=== PATIENT | female | born 1945 | race Caucasian/White ===

== ENCOUNTER 2017-04-13 17:47 | Emergency (ER) | payer MEDICARE, MEDICAID ==
[2017-04-13 18:30] VITALS: BP 134/65
--- NOTE | 2017-04-13 19:08 | RAD ---
HISTORY: Redness and pain, first MTP joint COMPARISONS: None VIEWS: 4, Frontal, lateral, and oblique views of the first digit of the right foot FINDINGS: BONE DENSITY: Normal. BONES: There is no displaced fracture. There is minimal periosteal reaction along the distal first metatarsal medially. 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 ALIGNMENT: There is no dislocation. SOFT TISSUES: Unremarkable. OTHER FINDINGS: None. IMPRESSION: THERE IS MINIMAL PERIOSTEAL REACTION ALONG THE MEDIAL ASPECT OF THE DISTAL FIRST METATARSAL. IN THE CORRECT CLINICAL SETTING THIS MAY INDICATE OSTEOMYELITIS.
--- NOTE | 2017-04-13 19:28 | UC ---
Lower Extremity/Ankle HPI - HPI Summary HPI Summary: 5 DAYS OF RIGHT GREAT TOE PAIN, REDNESS AND SWELLING. HURTS TO WALK. DENIES ANY INJURY OR TRAUMA. NO H/O GOUT. HAS DM TYPE 2 WITH PERIPHERAL NEUROPATHY BUT NO OPEN SORES OR LESIONS. NO FEVER. HAS FELT TIRED AND OVERALL UNWELL FOR PAST FEW DAYS. HAS SOME URI SX - COUGH. - History of Current Complaint Chief Complaint: UCLowerExtremity Stated Complaint: RED SWOLLEN FOOT Time Seen by Provider: 04/13/17 18:28 Hx Obtained From: Patient, Family/Counter Top Maker - GRANDDAUGHTER Onset/Duration: Gradual Onset, Lasting Days, Still Present Severity Initially: Moderate Severity Currently: Moderate Pain Intensity: 3 Pain Scale Used: 0-10 Numeric Aggravating Factor(s): Standing, Ambulation Alleviating Factor(s): Nothing Able to Bear Weight: Yes - Allergies/Home Medications Allergies/Adverse Reactions: Allergies Allergy/AdvReac Type Severity Reaction Status Date / Time Penicillins Allergy Unknown Rash Verified 04/13/17 18:30 Home Medications: Home Medications Phenylephrine-Ibuprofen [Advil Sinus Congestion & 10-200 mg] 1 tab PO PRN [History] PMH/Surg Hx/FS Hx/Imm Hx Endocrine History: Diabetes Other Cardiovascular History: MITRAL VALVE REPLACEMENT - Surgical History Surgical History: Yes Surgery Procedure, Year, and Place: HEART, APPY ', CSECT , CATARACT '10, COMPLICATIONS AND STAPH IN GRO[place] FOLLOWING HEART SURGERY - Family History Known Family History: Positive: Diabetes - Social History Alcohol Use: None Substance Use Type: None Smoking Status (MU): Never Smoked Tobacco Review of Systems Constitutional: Fatigue, Other - MALAISE Skin: Other - REDNESS RIGHT GREAT TOE Respiratory: Cough Cardiovascular: Negative Gastrointestinal: Negative Musculoskeletal: Arthralgia, Decreased ROM, Edema All Other Systems Reviewed And Are Negative: Yes Physical Exam Triage Information Reviewed: Yes Appearance: Well-Appearing, No Pain Distress, Well-Nourished Vital Signs: Initial Vital Signs Temp 99 F 04/13/17 18:22 Pulse 71 04/13/17 18:22 Resp 16 04/13/17 18:22 BP 134/65 04/13/17 18:22 Pulse Ox 94 04/13/17 18:22 Vital Signs Reviewed: Yes Eyes: Positive: Conjunctiva Clear ENT: Positive: Hearing grossly normal, Pharynx normal, TMs normal Neck: Positive: Supple, Nontender, No Lymphadenopathy Respiratory Exam: Normal Cardiovascular Exam: Normal Abdomen Description: Positive: Soft Musculoskeletal: Positive: ROM Limited @ - RIGHT GREAT TOE, Edema @ - RIGHT GREAT TOE MTP JOINT, Other: - TTP RIGHT 1ST MTP JOINT Neurological: Positive: Alert Psychological: Positive: Age Appropriate Behavior Skin: Positive: Other - RIGHT GREAT TOE REDNESS Diagnostics - Radiology RIGHT GREAT TOE XRAY Xray Interpretation: Positive (See Comments) - THERE IS MINIMAL PERIOSTEAL REACTION ALONG THE MEDIAL ASPECT OF THE DISTAL FIRST METATARSAL. IN THE CORRECT CLINICAL SETTING THIS MAY INDICATE OSTEOMYELITIS. Radiology Interpretation Completed By: Radiologist Lower Extremity Course/Dx - Differential Dx/Diagnosis Provider Diagnoses: POSSIBLE OSTEOMYELITIS - RIGHT GREAT TOE Discharge - Discharge Plan Condition: Stable Disposition: OTHER Discharge Disposition Comment: TO [facility] BY PRIVATE CAR Patient Education Materials: Osteomyelitis (ED) Referrals: Erwin James WASTE MANAGEMENT SPECIALIST [Primary Care Provider] - If Needed Additional Instructions: XRAY IS SUGGESTIVE OF OSTEOMYELITIS. GO DIRECTLY TO THE [facility] FROM HERE FOR FURTHER EVALUATION.
== END 2017-04-13 19:35 ==
LOC: UCEAST 17:47
DX: M79.674 Pain in right toe(s) (principal); E11.42 Type 2 diabetes mellitus with diabetic polyneuropathy; Z95.2 Presence of prosthetic heart valve; Z88.0 Allergy status to penicillin
CPT/HCPCS: 99212; G0463

== ENCOUNTER 2017-04-13 19:56 | Emergency (ER) | payer MEDICARE, MEDICAID ==
[2017-04-13] MEDS ORDERED: NS 0.9% 1000 ML* 1,000 ML IV ONE (20:33)
[2017-04-13 21:19] LABS: Hematocrit 41 % (35-47); Hemoglobin 13.9 g/dl (12.0-16.0); Mean Corpuscular HGB Conc 34 g/dl (31-36); Mean Corpuscular Hemoglobin 30 pg (27-31); Mean Corpuscular Volume 90 fL (80-97); Mean Platelet Volume 8 um3 (7.4-10.4); Red Blood Count 4.59 10^6/ul (4.0-5.4); Red Cell Distribution Width 13 % (10.5-15); White Blood Count 10.7 10^3/ul (3.5-10.8)
[2017-04-13 21:31] LABS: BUN/Creatinine Ratio 24.1 (8-20); C Reactive Protein 12.55 mg/L (< 5.00); Calcium 9.3 mg/dL (8.6-10.3); EGFR African American 86.4 (>60); EGFR Non-African American 67.2 (>60); Potassium 3.7 mmol/L (3.5-5.0); Total Bilirubin 0.4 mg/dL (0.2-1.0); Uric Acid 7.6 mg/dL (2.3-6.6)
[2017-04-13] MEDS ORDERED: Colchicine* 0.6 MG TAB PO ONE ×2 (22:35→22:37)
--- NOTE | 2017-04-13 22:44 | ED ---
Zeinab Headley Thomas, scribed for Reese Mora MD on 04/13/17 at 2056 . Lower Extremity - HPI Summary HPI Summary: The pt is a 72 y/o F referred from urgent care c/o right foot pain since five days ago. The pain is described as red and hot. The pain is aggravated by nothing and is alleviated by nothing. 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 Pt denies known trauma to her foot. Pt additionally c/o fatigue and dizziness. She denies fever and chills. PMHx includes a bunion on her right foot, although she denies history of Gout. She was recently diagnosed with sinusitis and given erythromycin. - History of Current Complaint Chief Complaint: EDExtremityLower Stated Complaint: [facility]FER FROM [facility] BONE INFECTION Time Seen by Provider: 04/13/17 20:25 Hx Obtained From: Patient Onset of Pain: Days - 5 days Onset/Duration: Still Present Severity Currently: Moderate Pain Intensity: 3 Pain Scale Used: 0-10 Numeric Timing: Constant Location: Is Discrete @ - right foot Associated Signs And Symptoms: Positive: Other - Right foot pain, fatigue, dizziness; NEGATIVE: fever, chills. Aggravating Factor(s): Nothing Alleviating Factor(s): Nothing - Allergies/Home Medications Allergies/Adverse Reactions: Allergies Allergy/AdvReac Type Severity Reaction Status Date / Time Penicillins Allergy Unknown Rash Verified 04/13/17 18:30 PMH/Surg Hx/FS Hx/Imm Hx Previously Healthy: No Endocrine/Hematology History: Reports: Hx Diabetes - TYPE II Denies: Hx Thyroid Disease Cardiovascular History: Denies: Hx Hypertension, Hx Pacemaker/ICD Respiratory History: Denies: Hx Asthma, Hx Chronic Obstructive Pulmonary Disease (COPD) GI History: Denies: Hx Ulcer Musculoskeletal History: Denies: Hx Gout Psychiatric History: Denies: Hx Panic Disorder - Surgical History Surgery Procedure, Year, and Place: HEART, APPY , CSECT , CATARACT , COMPLICATIONS AND STAPH IN GROIN FOLLOWING HEART SURGERY Infectious Disease History: No Infectious Disease History: Denies: Hx Hepatitis, Hx Human Immunodeficiency Virus (HIV), Traveled Outside the US in Last 30 Days - Family History Known Family History: Positive: Diabetes - Social History Alcohol Use: None Hx Substance Use: No Substance Use Type: Reports: None Hx Tobacco Use: No Smoking Status (MU): Never Smoked Tobacco Review of Systems Positive: Fatigue. Negative: Fever, Chills Positive: Other - Right foot pain Neurological: Other - Dizziness All Other Systems Reviewed And Are Negative: Yes Physical Exam - Summary Physical Exam Summary: General: well-appearing, no pain distress Skin: warm, color reflects adequate perfusion, dry Head: normal Eyes: EOMI, TAVARES ENT: normal Neck: supple, nontender Respiratory: CTA, breath sounds present Cardiovascular: RRR Abdomen: soft, nontender Bowel: present Musculoskeletal: strength/ROM intact EXTREMITY: R foot first MTP is swollen and erythematous and tender to palpation. Good capillary refill. Normal dorsalis pedis and posterior tibialis pulses. No sensation deficit. Neurological: normal, sensory/motor intact, A&O x3 Psychological: affect/mood appropriate Triage Information Reviewed: Yes Vital Signs On Initial Exam: Initial Vitals Temp Pulse Resp BP Pulse Ox 98.3 F 71 16 129/67 96 04/13/17 20:00 04/13/17 20:00 04/13/17 20:00 04/13/17 20:00 04/13/17 20:00 Vital Signs Reviewed: Yes - [place] Coma Scale Coma Scale Total: 15 Diagnostics - Vital Signs Vital Signs Temp Pulse Resp BP Pulse Ox 04/13/17 20:00 98.3 F 71 16 129/67 96 - Laboratory Lab Results: Lab Results 04/13/17 04/13/17 04/13/17 Range/Units 20:55 20:55 20:55 WBC 10.7 (3.5-10.8) 10^3/ul RBC 4.59 (4.0-5.4) 10^6/ul Hgb 13.9 (12.0-16.0) g/dl Hct 41 (35-47) % MCV 90 (80-97) fL MCH 30 (27-31) pg MCHC 34 (31-36) g/dl RDW 13 (10.5-15) % Plt Count 212 (150-450) 10^3/ul MPV 8 (7.4-10.4) um3 Neut % (Auto) 56.7 (38-83) % Lymph % (Auto) 32.1 (25-47) % Wright % (Auto) 7.8 (1-9) % Eos % (Auto) 2.0 (0-6) % Baso % (Auto) 1.4 (0-2) % Absolute Neuts (auto) 6.1 (1.5-7.7) 10^3/ul Absolute Lymphs (auto) 3.4 (1.0-4.8) 10^3/ul Absolute Monos (auto) 0.8 (0-0.8) 10^3/ul Absolute Eos (auto) 0.2 (0-0.6) 10^3/ul Absolute Basos (auto) 0.1 (0-0.2) 10^3/ul Absolute Nucleated RBC 0 10^3/ul Nucleated RBC % 0 INR (Anticoag Therapy) 0.95 (0.89-1.11) APTT 28.4 (26.0-36.3) seconds Sodium 139 (133-145) mmol/L Potassium 3.7 (3.5-5.0) mmol/L Chloride 104 (101-111) mmol/L Carbon Dioxide 28 (22-32) mmol/L Anion Gap 7 (2-11) mmol/L BUN 20 (6-24) mg/dL Creatinine 0.83 (0.51-0.95) mg/dL Est GFR ( Amer) 86.4 (>60) Est GFR (Non-Af Amer) 67.2 (>60) BUN/Creatinine Ratio 24.1 H (8-20) Glucose 160 H (70-100) mg/dL Lactic Acid (0.5-2.0) mmol/L Uric Acid 7.6 H (2.3-6.6) mg/dL Calcium 9.3 (8.6-10.3) mg/dL Total Bilirubin 0.40 (0.2-1.0) mg/dL AST 20 (13-39) U/L ALT 18 (7-52) U/L Alkaline Phosphatase 68 (34-104) U/L C-Reactive Protein 12.55 H (< 5.00) mg/L Total Protein 7.0 (6.4-8.9) g/dL Albumin 4.0 (3.2-5.2) g/dL Globulin 3.0 (2-4) g/dL Albumin/Globulin Ratio 1.3 (1-3) 04/13/17 Range/Units 20:55 WBC (3.5-10.8) 10^3/ul RBC (4.0-5.4) 10^6/ul Hgb (12.0-16.0) g/dl Hct (35-47) % MCV (80-97) fL MCH (27-31) pg MCHC (31-36) g/dl RDW (10.5-15) % Plt Count (150-450) 10^3/ul MPV (7.4-10.4) um3 Neut % (Auto) (38-83) % Lymph % (Auto) (25-47) % Wright % (Auto) (1-9) % Eos % (Auto) (0-6) % Baso % (Auto) (0-2) % Absolute Neuts (auto) (1.5-7.7) 10^3/ul Absolute Lymphs (auto) (1.0-4.8) 10^3/ul Absolute Monos (auto) (0-0.8) 10^3/ul Absolute Eos (auto) (0-0.6) 10^3/ul Absolute Basos (auto) (0-0.2) 10^3/ul Absolute Nucleated RBC 10^3/ul Nucleated RBC % INR (Anticoag Therapy) (0.89-1.11) APTT (26.0-36.3) seconds Sodium (133-145) mmol/L Potassium (3.5-5.0) mmol/L Chloride (101-111) mmol/L Carbon Dioxide (22-32) mmol/L Anion Gap (2-11) mmol/L BUN (6-24) mg/dL Creatinine (0.51-0.95) mg/dL Est GFR ( Amer) (>60) Est GFR (Non-Af Amer) (>60) BUN/Creatinine Ratio (8-20) Glucose (70-100) mg/dL Lactic Acid 1.9 (0.5-2.0) mmol/L Uric Acid (2.3-6.6) mg/dL Calcium (8.6-10.3) mg/dL Total Bilirubin (0.2-1.0) mg/dL AST (13-39) U/L ALT (7-52) U/L Alkaline Phosphatase (34-104) U/L C-Reactive Protein (< 5.00) mg/L Total Protein (6.4-8.9) g/dL Albumin (3.2-5.2) g/dL Globulin (2-4) g/dL Albumin/Globulin Ratio (1-3) Result Diagrams: 04/13/17 20:55 04/13/17 20:55 Lab Statement: Any lab studies that have been ordered have been reviewed, and results considered in the medical decision making process. Re-Evaluation - Re-Evaluation First Eval Re-Evaluation Time: 22:33 Change: Unchanged Comment: I discussed the test results with the patient. Lower Extremity Course/Dx - Course Course Of Treatment: Medications reviewed. BP noted and advised to follow up with PCP. Allergies noted. DISCUSSED RESULTS WITH PATIENT AND HER GRANDAUGHTER. WILL TREAT GOUT BUT, PATIENT NEEDS CLOSE F/U WITH PMD FOR POTENTIAL MRI AND ASPIRATION OF THE JOINT. SHE WILL RETURN IF THERE ARE ANY SIGNS OF INFECTION. NO CRITICAL CARE TIME. - Diagnoses Provider Diagnoses: Gout of right foot - Physician Notifications Discussed Care Of Patient With: Jose Davis Time Discussed With Above Provider: 20:35 Instructed by Provider To: Other - I consulted with Dr. Davis, hospitalist , who will admit the patient. Discharge - Discharge Plan Condition: Stable Disposition: HOME Prescriptions: Colchicine* [Colcrys*] 0.6 mg PO BID #10 tab Patient Education Materials: Gout (ED) Referrals: Erwin James, [employer] [facility] [Primary Care Provider] - Additional Instructions: FOLLOW UP WITH YOUR DOCTOR ON 04/15/17. TAKE THE COLCHICINE 0.6MG TWICE A DAY. YOUR FOOT REDNESS AND PAIN APPEARS TO BE GOUT AND WE ARE TREATING IT GOUT. WE HAVE NOT COMPLETELY RULED OUT INFECTION SO, IF YOU WORSEN, YOU MUST RETURN TO THE EMERGENCY DEPARTMENT RIGHT AWAY. DISCUSS HAVING AN ASPIRATION AND MRI OF THE JOINT WITH YOUR DOCTOR. RETURN TO THE EMERGENCY DEPARTMENT FOR ANY WORSENING OF YOUR CONDITION; SPREAD OF THE REDNESS, FEVER, SIGNS OF INFECTION, YOU FEEL ILL OR QUESTIONS OR CONCERNS. The documentation as recorded by the Zeinab rutledge Thomas accurately reflects the service I personally performed and the decisions made by me, Reese Mora MD.
[2017-04-13 23:20] VITALS: BP 104/64
== END 2017-04-13 23:18 | disposition home or self-care (01) ==
LOC: ED 19:56
DX: M10.9 Gout, unspecified (principal); E11.9 Type 2 diabetes mellitus without complications; Z88.0 Allergy status to penicillin
CPT/HCPCS: 36415; 80053; 83605; 84550; 85025; 85610; 85730; 86140; 87040; 96360; 99283

== ENCOUNTER 2018-05-05 12:16 | Inpatient (IN) | payer MEDICARE, MEDICAID ==
[2018-05-05] MEDS ORDERED: Ondansetron INJ* 2 MG/ML VIAL IV ONE (12:28)
[2018-05-05] MEDS ORDERED: Morphine VIAL* 4 MG/ML VIAL (1 ml vial) IV ONE ×2 (12:30→14:54)
--- NOTE | 2018-05-05 12:36 | ED ---
Adult Trauma - HPI Summary HPI Summary: This pt is a 73 y/o female presenting to [facility] c/o right hip pain, left wrist pain, low back pain s/p a mechanical fall today. Pt reports she was on a step ladder cleaning when she fell backwards. Pt presents with left wrist deformity, right hip pain and low back pain. She denies headache, chest pain, SOB, nausea, vomiting, head strike,urinary or fecal dysfunction and LOC. PMHx includes diabetes, mitral valve replacement. Home Medications Medication Instructions Recorded Confirmed Type Ascorbic Acid/Vitamin E/Biotin 1 chw PO DAILY 05/05/18 05/05/18 History [Hair/Skin/Nails 1250-7.5-7.5 Mcg-mg-Unt] Cetirizine* [ZyrTEC 10 MG TAB*] 10 mg PO DAILY PRN 05/05/18 05/05/18 History Colchicine* [Colcrys*] 0.6 mg PO BID 05/05/18 05/05/18 History Mometasone NASAL (NF) [Nasonex 2 spray BOTH NARES DAILY 05/05/18 05/05/18 History (NF)] Multivit with Calcium,Iron,Min 1 tab PO DAILY 05/05/18 05/05/18 History [Multiple Vitamins For Women] glipiZIDE TAB.XL* [Glucotrol XL*] 5 mg PO BID 05/05/18 05/05/18 History - History of Current Complaint Stated Complaint: FALL LEFT WRIST INJURY , BACK PAIN Time Seen by Provider: 05/05/18 12:23 Hx Obtained From: Patient, Family/Film Inspector Mechanism of Injury: Fall Ambulatory at the Scene: No Loss of Consciousness: no loss of consciousness Onset/Duration: Started Minutes Ago Onset of Pain: Minutes Current Severity: Severe Pain Intensity: 10 Pain Scale Used: 0-10 Numeric Location: Extremities - left wrist, Other - POS: right hip, lower back Character: Aching Aggravating Factor(s): Movement Alleviating Factor(s): Rest Associated Signs & Symptoms: Negative: SOB, Chest Pain, Nausea/Vomiting, Loss of Consciousness - Allergy/Home Medications Allergies/Adverse Reactions: Allergies Allergy/AdvReac Type Severity Reaction Status Date / Time doxycycline Allergy Nausea Verified 05/05/18 16:10 Penicillins Allergy Rash Verified 05/05/18 16:10 Home Medications: Home Medications Ascorbic Acid/Vitamin E/Biotin [Hair/Skin/Nails 1250-7.5-7.5 Mcg-mg-Unt] 1 chw PO DAILY 05/05/18 [History Confirmed 05/05/18] Cetirizine* [ZyrTEC 10 MG TAB*] 10 mg PO DAILY PRN 05/05/18 [History Confirmed 05/05/18] Colchicine* [Colcrys*] 0.6 mg PO BID 05/05/18 [History Confirmed 05/05/18] Mometasone NASAL (NF) [Nasonex (NF)] 2 spray BOTH NARES DAILY 05/05/18 [History Confirmed 05/05/18] Multivit with Calcium,Iron,Min [Multiple Vitamins For Women] 1 tab PO DAILY [History Confirmed 05/05/18] glipiZIDE TAB.XL* [Glucotrol XL*] 5 mg PO BID 05/05/18 [History Confirmed ] PMH/Surg Hx/FS Hx/Imm Hx Endocrine/Hematology History: Reports: Hx Diabetes - TYPE II Denies: Hx Thyroid Disease Cardiovascular History: Reports: Other Cardiovascular Problems/Disorders - mitral valve replacement Denies: Hx Hypertension, Hx Pacemaker/ICD Respiratory History: Denies: Hx Asthma, Hx Chronic Obstructive Pulmonary Disease (COPD) GI History: Denies: Hx Ulcer Musculoskeletal History: Denies: Hx Gout Sensory History: Denies: Hx Hearing Aid Psychiatric History: Denies: Hx Panic Disorder - Surgical History Surgery Procedure, Year, and Place: APPY '53, CSECT '69, CATARACT '10, COMPLICATIONS AND STAPH IN GRO[place] FOLLOWING HEART SURGERY-*. HEART VALVE REPLACEMENT 2009-[employer] [facility] HEART VALVE MODEL 547C97-TE FOR UP TO 3T-PT WILL BRING CARD TO COPY Infectious Disease History: Denies: Hx Hepatitis, Hx Human Immunodeficiency Virus (HIV), Traveled Outside the US in Last 30 Days - Family History Known Family History: Positive: Diabetes - Social History Alcohol Use: None Hx Substance Use: No Substance Use Type: Reports: None Hx Tobacco Use: No Smoking Status (MU): Never Smoked Tobacco Review of Systems Negative: Fever, Chills Negative: Chest Pain Negative: Shortness Of Breath Negative: Vomiting, Nausea Negative: incontinence Musculoskeletal: Other - POS: left wrist pain, lower back pain, right hip pain Negative: Headache All Other Systems Reviewed And Are Negative: Yes Physical Exam - Summary Physical Exam Summary: VITAL SIGNS: Reviewed. GENERAL: Patient is a well-developed and nourished female. Patient is not in any acute respiratory distress. HEAD AND FACE: No signs of trauma. No ecchymosis, hematomas or skull depressions. No sinus tenderness. EYES: PERRLA, EOMI x 2, No injected conjunctiva, no nystagmus. EARS: Hearing grossly intact. Ear canals and tympanic membranes are within normal limits. MOUTH: Oropharynx within normal limits. NECK: Supple, trachea is midline, no adenopathy, no JVD, no carotid bruit, no c- spine tenderness, neck with full ROM. CHEST: Symmetric, no tenderness at palpation LUNGS: Clear to auscultation bilaterally. No wheezing or crackles. CVS: Regular rate and rhythm, S1 and S2 present, no murmurs or gallops appreciated. ABDOMEN: Soft, non-tender. No signs of distention. No rebound, no guarding, and no masses palpated. Bowel sounds are normal. EXTREMITIES: Left wrist with positive deformity. Neurovascular intact. Lower back tenderness. No urinary or bowel dysfunction. Right hip tenderness with decreased ROM. NEURO: Alert and oriented x 3. No acute neurological deficits. Speech is normal and follows commands. SKIN: Dry and warm Triage Information Reviewed: Yes Vital Signs On Initial Exam: Initial Vital Signs Resp 25 05/05/18 12:29 Vital Signs Reviewed: Yes Diagnostics - Laboratory Result Diagrams: 05/05/18 12:56 05/05/18 12:56 Lab Statement: Any lab studies that have been ordered have been reviewed, and results considered in the medical decision making process. - Radiology Chest XR Radiology Interpretation Completed By: Radiologist Summary of Radiographic Findings: IMPRESSION: Hyperinflated lung ledezma without definite pneumonia. Dr. Jeffries has reviewed this report. Hip/Pelvis XR Radiology Interpretation Completed By: Radiologist Summary of Radiographic Findings: IMPRESSION: Likely impacted fracture neck of the right femur. Dr. Jeffries has reviewed this report. Left wrist XR Radiology Interpretation Completed By: Radiologist Summary of Radiographic Findings: IMPRESSION: Comminuted fracture distal radius with dorsal angulation and overriding of the fracture fragments as well as fracture of the ulnar styloid process. Dr. Jeffries has reviewed this report. Lumbar spine XR Radiology Interpretation Completed By: Radiologist Summary of Radiographic Findings: IMPRESSION: Degenerative disc disease and osteoarthritis. Dr. Jeffries has reviewed this report. - EKG 12:34 Cardiac Rate: Tachycardia - at 108 bpm EKG Rhythm: Sinus Tachycardia Summary of EKG Findings: Right bundle branch block. Adult Trauma Course/Dx - Course Assessment/Plan: This pt is a 73 y/o female presenting to [facility] c/o right hip pain, left wrist pain, low back pain s/p a fall today. Pt reports she was on a step ladder cleaning when she fell backwards.Pt notes lower back pain but denies LOC, head strike ,urinary or fecal dysfunction, headache, chest pain, SOB , nausea, and vomiting. PMHx includes diabetes. Lumbar spine impression: Degenerative disc disease and osteoarthritis. Right hip x-ray impression: Likely impacted fracture of the neck of the right femur. Chest x-ray impression : Hyperinflated lung ledezma without definite pneumonia. Wrist x ray Impression : Comminuted fracture of the distal radius with dorsal angulation and overriding of the fracture fragments as well as fracture of the ulna distally process. Blood work without any significant abnormality except for glucose of 210. Urinalysis is negative for UTI. In the ED course the patient was given IV fluids, Zofran for nausea and vomiting and morphine for pain. At this point I discussed the case with Dr. Bose, orthopedist, who agreed to do a consult for this patient. I discussed the physical exam, findings and test results with Dr. Jackson from the hospitalist services and he agrees to admit patient to his services. Patient is hemodynamically stable, alert and oriented x 3. - Diagnoses Differential Diagnosis/HQI/PQRI: Positive: Abrasion(s), Contusion(s), Fracture, Dislocation, Hematoma(s), Laceration(s), Sprain, Strain Provider Diagnoses: Hip fracture, Wrist fracture - Physician Notifications Discussed Care Of Patient With: Vitaliy Jackson - hospitalist Time Discussed With Above Provider: 14:42 Instructed by Provider To: Other - I discussed the case with Dr. Jackson, hospitalist, who accepted the pt for admission. [15:12] I discussed with Dr. Bose, orthopedist, who wants a hip CT and he will see her in the ED. Discharge - Sign-Out/Discharge Documenting (check all that apply): Patient Departure - Admit to [facility] - Discharge Plan Condition: Stable Disposition: ADMITTED TO [facility] - Billing Disposition and Condition Condition: STABLE Disposition: Admitted to [facility] - Attestation Statements Document Initiated by Jeremías: Yes Documenting Scribe: Bridgett Cabrera Provider For Whom Jeremías is Documenting (Include Credential): Zain Jeffries MD Scribe Attestation: Bridgett Headley, scribed for Zain Jeffries MD on 05/05/18 at 1831. Scribe Documentation Reviewed: Yes Provider Attestation: The documentation as recorded by the Bridgett rutledge accurately reflects the service I personally performed and the decisions made by me, Zain Jeffries MD
[2018-05-05 13:14] LABS: ABS Basophils 0 10^3/ul (0-0.2); ABS Eosinophils 0.1 10^3/ul (0-0.6); ABS Lymphocytes 1.7 10^3/ul (1.0-4.8); ABS Monocytes 0.6 10^3/ul (0-0.8); ABS Neutrophils 7.7 10^3/ul (1.5-7.7); ABS Nucleated RBC 0 10^3/ul; Eosinophil % 0.9 % (0-6); Hematocrit 41 % (35-47); Lymphocyte % 16.6 % (25-47); Mean Corpuscular HGB Conc 34 g/dl (31-36); Mean Corpuscular Hemoglobin 31 pg (27-31); Mean Corpuscular Volume 91 fL (80-97); Mean Platelet Volume 7.5 fL (7.4-10.4); Nucleated Red Blood Cells % 0; Platelet Count 169 10^3/ul (150-450); Red Blood Count 4.56 10^6/ul (4.00-5.40); Red Cell Distribution Width 13 % (10.5-15); White Blood Count 10.1 10^3/ul (3.5-10.8)
[2018-05-05 13:34] LABS: Urine Appearance Clear; Urine Blood Negative (Negative); Urine Color Yellow; Urine Ketones Trace (Negative); Urine Protein Negative (Negative); Urine Red Blood Cell Absent (Absent); Urine Specific Gravity 1.019 (1.010-1.030); Urine Urobilinogen Negative (Negative); Urine White Blood Cell Trace(0-5/hpf) (Absent)
[2018-05-05 13:44] LABS: EGFR Non-African American 88.9 (>60)
--- NOTE | 2018-05-05 15:02 | PN ---
Progress Note - Progress Note Date of Service: 05/05/18 Note: Neurovascularly intact Obvious wrist deformity Volar wrist splint placed Patient c/o 03/26 pain with movement No manipulation/reduction attempted NV intact s/p volar splint
[2018-05-05] MEDS ORDERED: Acetaminophen TAB* 325 MG PO PRN (15:37)
[2018-05-05] MEDS ORDERED: Ondansetron INJ* 2 MG/ML VIAL IV PRN (15:37)
[2018-05-05] MEDS ORDERED: NS 0.9% 1000 ML* 1,000 ML IV SCH (15:45)
[2018-05-05] MEDS ORDERED: Dextrose 50% Syringe 50 ML* 25 GM/50 ML SYRINGE IV PUSH PRN (15:45)
[2018-05-05] MEDS ORDERED: Iodixanol* (CONTRAST) 320 MG/ML 100 ML SDV IV ONE (16:00)
[2018-05-05] MEDS: Insulin LISPRO* 1 UNITS UNIT SUBCUT SCH (18:34)
[2018-05-05 19:13] LABS: INR 0.95 (0.77-1.02)
--- NOTE | 2018-05-05 19:14 | HP ---
CC: Erwin James NP; Dr. Maxwell; Dr. Bose * HISTORY AND PHYSICAL: DATE OF ADMISSION: 05/05/18 PRIMARY CARE PROVIDER: Erwin James NP ATTENDING PHYSICIAN WHILE IN THE HOSPITAL: Dr. Vitaliy Jackson *(report dictated by Sd Salazar NP). CONSULTING GAS LINE REPAIRER: Dr. Maxwell. CONSULTING ORTHOPEDIST: Dr. Bose. CHIEF COMPLAINT: Fall. HISTORY OF PRESENT ILLNESS: Ms. 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 She broke most of the fall with extending out her right arm. She says she did not hit her head, she did not faint, she had no chest pain prior to or after, she did not feel lightheaded or dizzy, but she put her arm out and fell and landed on it. She immediately had pain. She called out and the 911 was summoned. She says that she has not had any recent fevers or chills. No chest pain, no shortness of breath. She says typically she does clean and she can go up 3 flights of stairs several times a day and she does not get chest pain. She says it takes her time to do it. She does get sometimes short of breath with this, but she said she is able to do it. She has not had any recent chest pain. She has not had any recent change in medications. No fevers. She denied syncope. There was no loss of consciousness. There was concern though because of the fall the fact that she broke if there was a fractured arm and she was also complaining of hip pain, so x-ray imaging of the hip and pelvis did reveal a possible fracture. Because of these findings, we were asked to evaluate for admission. PAST MEDICAL HISTORY: Significant for: 1. Diabetes. 2. Valvular heart disease. 3. Gout. PAST SURGICAL HISTORY: 1. She has had an appendectomy. 2. 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 3. She has had cataract extraction. 4. . 5. She has had a right groin infection after the mitral valve replacement, which required I and D. HOME MEDICATIONS: Include: 1. Ascorbic acid/vitamin E/Biotin 1 tablet p.o. daily. 2. Multivitamin 1 tablet daily. 3. Glipizide 5 mg p.o. b.i.d. 4. Nasonex 2 sprays both nares daily. 5. Colchicine 0.6 mg p.o. b.i.d. 6. Cetirizine 10 mg p.o. daily as needed. ALLERGIES TO MEDICATIONS: Include PENICILLIN and DOXYCYCLINE. FAMILY HISTORY: Her mother had scleroderma. Father had a history of cancer. SOCIAL HISTORY: She does not smoke. She does not drink. She lives alone. Surrogate decision maker is her daughter. REVIEW OF SYSTEMS: There is no documented fever. She denied having any significant weight change. There is no double vision. She denies having any ear discharge. There is no rhinorrhea. There was no sore throat. No thyroid enlargement. She denied having any chest pain. There was no orthopnea. There was no nocturnal dyspnea. There was no abdominal pain. There was no nausea. There was no vomiting. There was no dysuria, no frequency. There was no seizure. There was no loss of consciousness. Review of 14 systems was completed, all others negative. PHYSICAL EXAMINATION GENERAL: At this time, Ms. Garcia is a 73-year-old female patient. She is sitting in the ED stretcher. She does not appear to be in any acute distress. She appears to be well nourished and well developed. VITAL SIGNS: Blood pressure 178/84 with a pulse of 108; respirations were 20; her O2 saturations were 99% on room air when she came in, but when I was examining her they were dipping down to 88% and her heart rate was in the one teens; her temperature was 98.4. HEENT: Head: Atraumatic and normocephalic. Eyes: EOMs are intact. Her sclerae were anicteric and not pale. Her throat, oral mucosa appears to be dry. No oropharyngeal erythema. NECK: Supple. LUNGS: Clear to auscultation. There were no wheezes, rales, or rhonchi. HEART: Sounds S1, S2. She is tachycardic. There were no murmurs, rubs, or gallops. ABDOMEN: Soft. It was flat. It was nontender. Bowel sounds were present. EXTREMITIES: Pulses were 2+ throughout. Distal CSM checks are intact of the right upper extremity. She has limited range of motion of the left lower extremity due to pain, but distal CSM checks are intact. SKIN: Grossly intact. DIAGNOSTIC STUDIES/LAB DATA: Labs today are revealing a WBC of 10.1, RBC of 4.56, hemoglobin of 14.0, hematocrit of 41, and platelet count of 169. Her sodium was 140, potassium 4, chloride 106, bicarb 26, BUN 19, creatinine of 0.65 , glucose 210, calcium 9.4. Total bili 0.4, AST 27, ALT 25, alk phos 91. Her albumin was 3.9. Urine showed trace ketones, 1+ leukocyte esterase, present squamous epithelial cells. She had multiple imaging here in the ED starting out with chest x-ray, which revealed hyperinflated lung ledezma without definite pneumonia. There was an EKG obtained today and the last EKG I have access to, was from 7 years ago. Today's EKG shows a right bundle branch block, rate of 108. No ST elevations were noted. When you review it to the previous EKG, she had a normal sinus rhythm with a rate of 97 and again no right bundle branch block. She had a hip and pelvis x-ray obtained today, which revealed likely impacted femoral neck fracture. Wrist x-ray shows comminuted fracture of the distal radius with dorsal angulation overriding the fracture fragments as well as fracture of the ulnar styloid process. She had a lumbar spine x-ray, which revealed degenerative disk disease and osteoarthritis. She had an echo done in 2008. EF greater than 82%. Again, that was 9 years ago. Old medical records were reviewed. ASSESSMENT AND PLAN: Ms. Garcia is a 73-year-old female patient coming into the ED today with complaints of a fall. She denies having any syncopal episode , denied having any chest pain. She stated even though it sounds like this was a mechanical fall; however, it was found that she did have a wrist fracture, possible left hip fracture. We were asked to evaluate her for admission. She will be admitted under inpatient status for: 1. Left wrist fracture. At this point, Dr. Bose did evaluate the patient. She will need to be taken to the OR when she is medically optimized. At this point, I do note that her EKG does show a new right bundle branch block, so I have ordered an echo. I did touch base with my attending, Dr. Jackson and we are going to go ahead and cycle her troponins and check a CTA of the chest given the fact that she did have some hypoxia and she did have some tachycardia. I do not know if this is new or not. She may have had this for some time given the last time she had an EKG that I have access to was 7 years ago, but I would like to rule out other etiologies prior to optimization and we will get Cardiology input as well. Dr. Bose is following at this time being. We will get neurovascular checks. In addition to this, the wrist has been splinted. 2. Possible left hip fracture. Dr. Bose evaluated the x-ray films. He is recommending a CT pelvis, which he has ordered. We will follow up on that and because of the fall, I also will get a CT brain and CT cervical spine. 3. Diabetes. We will put her on a lispro sliding scale. 4. Valvular heart disease. She has a history of mitral valve replacement. We will evaluate this with echo and get Cardiology to evaluate. 5. Gout. Continue her colchicine. 6. DVT prophylaxis: She will be placed on heparin subcu. 7. Code status: She is full code. 8. Fluids, electrolytes, and nutrition: She can have a consistent carb diet. TIME SPENT: Time spent on the admission was 60 minutes, greater than half of the time was spent [id number] with the patient obtaining my history and physical, other half of the time was spent going over the plan of care with the patient and implementing plan of care. I did discuss the plan of care with my attending, Dr. Jackson; he is in agreement. SD SALAZAR, COTY [id number]/[facility] #: [id number] HARVEY
--- NOTE | 2018-05-05 20:21 | CONS ---
CC: [facility]; Dr. Cortes Bose * CARDIOLOGY CONSULTATION: DATE OF CONSULT: 05/05/18 INDICATION FOR CONSULTATION: Mitral valve replacement, right bundle branch block, pre-op for wrist surgery. HISTORY OF PRESENT ILLNESS: The patient is a 73-year-old female with a history of a mitral valve replacement in 2008 who had a fall today resulted in a left arm fracture. 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 She denied any syncopal episode. She denied any lightheadedness or dizziness. She denied any chest pain. She denied any palpitations. On arrival to the emergency room an EKG demonstrated a normal sinus rhythm with a right bundle-branch block when compared to a previous EKG in 2011 the right bundle-branch block is new. Again in speaking with the patient, I cannot elicit any significant cardiac symptoms. She denies any chest pain, shortness of breath, no orthopnea or PND. No palpitations. No lightheadedness, dizziness or syncope. OUTPATIENT MEDICATIONS: 1. Glipizide tablet 5 mg twice a day. 2. Nasonex nasal spray daily. 3. Colchicine 0.6 mg b.i.d. 4. Zyrtec 10 mg a day. 5. Vitamin C. 6. Multivitamin a day. ALLERGIES: DOXYCYCLINE and PENICILLIN. FAMILY HISTORY: Family history was not obtained. SOCIAL HISTORY: She lives alone. 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 She denies tobacco or alcohol use. She is not getting any regular exercise, but is very active. REVIEW OF SYSTEMS: Negative for fevers and chills. Negative for changes in bowel or bladder habits. Negative for change in weight. Other 12 point review was unremarkable. PHYSICAL EXAM: Height is 5 feet 3 inches, weight is 130 pounds. Temperature 98.4, heart rate is 100, blood pressure 143/78, respiratory rate is 20, oxygen saturation 97% on 2 L. Sclerae anicteric. Oropharynx is pink without erythema. Carotids are 2+ without bruits. JVD is normal. Thyroid is normal. Cardiac Exam: S1, S2 without any murmurs, rubs, or gallops. Lungs are clear to auscultation bilateral. There is no dullness to percussion. Abdomen is soft , nontender, nondistended with normoactive bowel sounds. Extremities showed no edema. She has 2+ pulses throughout. The patient is awake and alert, and oriented. She moves all 4 extremities equally. The patient had a cardiac catheterization in 2008 before her valve replacement surgery. This showed no evidence of coronary artery disease. Her last echocardiogram was in 2011. This demonstrated normal LV size and systolic function, normal function of her bioprosthetic valve. No other valvular issues. In the emergency room, the patient had multiple x-rays; she had a CT of the chest, which demonstrated no evidence of pulmonary embolism. IMPRESSION: This is a 73-year-old female with a history of mitral valve replacement in 2008, who comes in today after a mechanical fall resulted in a wrist fracture. The patient is essentially going to the loom operator room tomorrow for her wrist fracture. In speaking with the patient, I cannot elicit any cardiac symptoms. Her EKG does show a new onset right bundle-branch block, which is of no concern. The patient will undergo an echocardiogram tomorrow morning to evaluate her mitral valve. If her echocardiogram is unchanged from 2012, the patient should be able to proceed with surgery. The patient is at low risk for cardiovascular complications. Further recommendations pending results of her echocardiogram. [id number]/[facility] #: [id number] HARVEY
[2018-05-05] MEDS: oxyCODONE/Acetamin 5/325 MG* TAB PO PRN (21:48)
[2018-05-05] MEDS: Colchicine* 0.6 MG TAB PO SCH (21:48)
[2018-05-05] MEDS: Heparin VIAL(*) 5000 UNITS/ML VIAL (FIVE THOUSAND) SUBCUT SCH (21:51)
[2018-05-06] MEDS: Morphine VIAL* 4 MG/ML VIAL (1 ml vial) IV PRN ×2 (03:31→07:45)
[2018-05-06] MEDS: Heparin VIAL(*) 5000 UNITS/ML VIAL (FIVE THOUSAND) SUBCUT SCH ×3 (05:35→21:20)
[2018-05-06 05:53] LABS: ABS Basophils 0 10^3/ul (0-0.2); ABS Eosinophils 0.1 10^3/ul (0-0.6); ABS Lymphocytes 1.9 10^3/ul (1.0-4.8); ABS Monocytes 0.8 10^3/ul (0-0.8); ABS Neutrophils 7.8 10^3/ul (1.5-7.7); ABS Nucleated RBC 0 10^3/ul; Eosinophil % 1.3 % (0-6); Hematocrit 37 % (35-47); Hemoglobin 12.9 g/dl (12.0-16.0); Lymphocyte % 17.8 % (25-47); Mean Corpuscular HGB Conc 35 g/dl (31-36); Mean Corpuscular Hemoglobin 31 pg (27-31); Mean Corpuscular Volume 90 fL (80-97); Mean Platelet Volume 7.3 fL (7.4-10.4); Nucleated Red Blood Cells % 0; Platelet Count 167 10^3/ul (150-450); Red Blood Count 4.13 10^6/ul (4.00-5.40); Red Cell Distribution Width 13 % (10.5-15); White Blood Count 10.7 10^3/ul (3.5-10.8)
[2018-05-06 05:55] LABS: INR 1.02 (0.77-1.02)
[2018-05-06 06:05] LABS: EGFR Non-African American 97.5 (>60)
[2018-05-06] MEDS: Colchicine* 0.6 MG TAB PO SCH ×2 (08:54→21:24)
[2018-05-06] MEDS: Insulin LISPRO* 1 UNITS UNIT SUBCUT SCH ×3 (08:57→18:04)
[2018-05-06] MEDS: Fluticasone NASAL SPRAY 50MCG* 16 gm SPRAY BTL BOTH NARES SCH (08:59)
--- NOTE | 2018-05-06 09:32 | ECHO ---
Patient: [facility] Rec#: [id number] : 1945 Date: 05/06/2018 Age: 73y Height: 160 cm / 63.0 in Weight: 59 kg / 130.0 lbs Sex: F BSA: 1.61 Room#: [facility] Admit Date#: 05/05/2018 Type: Inpatient Referring: Sd Salazar NP Reading: Robson Maxwell MD Tower Truck Driver: Casandra Lynn RDCS CC: Erwin James NP Transthoracic Echocardiogram Indication: Abnormal EKG BP: 121/62 HR: 89 Rhythm: NSR Findings History: DM, s/p mitral valve replacement (porcine) 2008. Technical Comments: The study quality is fair. The study was technically limited due to the patient's inability to lay in the left lateral decubitus position. Completed at 0835. Left Ventricle: The left ventricular chamber size is normal. Mild concentric left ventricular hypertrophy is observed. Left ventricular systolic function is at the lower limits of normal. The estimated ejection fraction is 50-55%. Post surgical hypokinesis of the interventricular septum is observed consistent with valve replacement. There is a left ventricular septal wall motion abnormality observed, possibly due to the presence of a right bundle branch block. There is no consistent Doppler evidence of clinically significant diastolic dysfunction. Left Atrium: The left atrium is mild to moderately dilated. Right Ventricle: Moderator Band present. The right ventricular cavity size is normal. The right ventricular global systolic function is low normal. Right Atrium: The right atrium is mildly dilated. Aortic Valve: The aortic valve is trileaflet. The aortic valve leaflets are mildly thickened. There is no evidence of aortic regurgitation. There is no evidence of aortic stenosis. Mitral Valve: A porcine bioprosthetic mitral valve is present. The bioprosthetic mitral valve appears to be functioning normally. Tricuspid Valve: The tricuspid valve leaflets are normal. There is mild to moderate tricuspid regurgitation. The right ventricular systolic pressure is estimated at 37 mmHg. There is evidence of mild pulmonary hypertension. There is no tricuspid stenosis. Pulmonic Valve: The pulmonic valve appears normal. There is no evidence of pulmonic regurgitation. There is no pulmonic stenosis. Pericardium: There is no significant pericardial effusion. Aorta: There is no dilatation of the ascending aorta. There is no dilatation of the aortic arch. The aortic root is normal in size. Pulmonary Artery: The main pulmonary artery appears normal. Venous: The inferior vena cava appears normal in size. There is a greater than 50% respiratory change in the inferior vena cava dimension. Summary: There are no significant changes when compared to the previous study done on 03/20/12 Conclusions Mild concentric left ventricular hypertrophy is observed. The estimated ejection fraction is 50-55%. Post surgical hypokinesis of the interventricular septum is observed consistent with valve replacement. The right ventricular global systolic function is low normal. There is no evidence of aortic stenosis. The bioprosthetic mitral valve appears to be functioning normally. There is mild to moderate tricuspid regurgitation. The right ventricular systolic pressure is estimated at 37 mmHg. There is evidence of mild pulmonary hypertension. There is no significant pericardial effusion. There are no significant changes when compared to the previous study done on 03/20/12 Measurements Name Value Normal Range RVIDd (AP) 2D 2.7 cm (0.9 - 2.6) RVDdMajor (2D) 4.3 cm (2.2 - 4.4) RAd ISD 4CH 5.2 cm (3.4 - 4.9) RA (A4C)W 4.6 cm (2.9 - 4.6) IVSd (2D) 1.1 cm (0.6 - 1) LVPWd (2D) 1.1 cm (0.6 - 1) LVIDd (2D) 4 cm (3.6 - 5.4) LVIDs (2D) 2.8 cm - Aortic Annulus 1.9 cm (1.4 - 2.6) Ao root diameter (2D) 3.1 cm (2.1 - 3.5) Ascending Ao 3 cm (2.1 - 3.4) Aortic arch 2.2 cm (1.8 - 3.4) LA dimension (AP) 2D 3.4 cm (2.3 - 3.8) LAd ISD 4CH 5.8 cm (2.9 - 5.3) LA ISD 4CH W 4.7 cm (2.5 - 4.5) Name Value Normal Range LA ESV BP (A/L) index 41 ml/m2 - Name Value Normal Range MV E-wave Vmax 1.7 m/sec - MV deceleration time 292 msec - MV A-wave Vmax 1.3 m/sec - MV E:A ratio 1.3 ratio - LV septal e' Vmax 0.05 m/sec - LV lateral e' Vmax 0.05 m/sec - LV E:e' septal ratio 34 ratio - LV E:e' lateral ratio 34 ratio - Name Value Normal Range AV Vmax 1.6 m/sec - AV VTI 27.87 cm - AV peak gradient 10 mmHg - AV mean gradient 5 mmHg - LVOT diameter 2 cm - LVOT Vmax 1.1 m/sec - LVOT VTI 21.7 cm - LVOT peak gradient 5 mmHg - LVOT mean gradient 3 mmHg - RAMBO Vmax 0.7 m/sec - Name Value Normal Range MV Vmax 1.9 m/sec - MV VTI 36.2 cm - MV peak gradient 13 mmHg - MV mean gradient 6 mmHg - MV PHT 61 msec - MVA (PHT) 3.6 cm2 - MVA (continuity VTI) 1.9 cm2 - Name Value Normal Range TR Vmax 2.9 m/sec - TR peak gradient 34 mmHg - RAP 3 mmHg - RVSP 37 mmHg - IVC diameter 1.5 cm - Name Value Normal Range PV Vmax 1 m/sec - PV peak gradient 4 mmHg -
--- NOTE | 2018-05-06 10:04 | CONSULT ---
Consult Consult: Orthopedic Consultation Patient: LANE GARCIA /Age: 08 1945 73 Medical Record#: [id number] Admission Date: 05/05/18 PRIMARY CARE PROVIDER: Erwin James NP CONSULTING PIECE MEAT TRIMMER: Dr. Maxwell CONSULTING ORTHOPEDIST: Dr. 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 She was standing on a chair to dust a [employer] cabinet when she fell to the ground, catching herself with her left arm. Fall was not associated with dizziness, SOB, CP, loss of conciousness. She did not hit her hear or lose conciousness with the fall. After fall she had immediate left wrist and right hip pain and called for help, 911 was called and she was brought to [facility] ED. Today she complains of left wrist pain with movement, no numbness or tingling. She is otherwise without complaints. 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 She has tolerated anesthesia well in the past, has a history of mitral valve replacement. Community ambulator at baseline without assistive device. No history of stroke or bloodclot. PAST MEDICAL HISTORY: 1. Diabetes. 2. Valvular heart disease (mitral) 3. Gout. PAST SURGICAL HISTORY: 1. appendectomy. 2. Mitral valve replacement, porcine. 3. She has had cataract extraction. 4. . 5. She has had a right groin infection after the mitral valve replacement, which required I and D. ALLERGIES TO MEDICATIONS: Include PENICILLIN and DOXYCYCLINE. FAMILY HISTORY: Her mother had scleroderma. Father had a history of cancer. SOCIAL HISTORY: She does not smoke. She does not drink. She lives alone. Surrogate decision maker is her daughter. Diagnostic Studies: Left Wrist Xray: Indication: Left wrist injury after fall 3 views of the wrist demonstrates comminuted fracture of the distal radius with dorsal angulation and fracture of the ulnar styloid process. IMPRESSION: Comminuted fracture distal radius with dorsal angulation and overriding of the fracture fragments as well as fracture of the ulnar styloid process. C/T Pelvis Without FINDINGS: BONE DENSITY: There is diffuse osteopenia. BONES: There is no displaced fracture. JOINTS: There is advanced osteoarthritis of the right hip with moderate osteoarthritis of the left hip. 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 MUSCULATURE: Unremarkable ALIGNMENT: There is no dislocation. SOFT TISSUES: Unremarkable. OTHER FINDINGS: None. IMPRESSION: 1. OSTEOPENIA. 2. OSTEOARTHRITIS. 3. NO ACUTE OSSEOUS INJURY. IF SYMPTOMS PERSIST, RECOMMEND REPEAT IMAGING. Review of Systems: General: Negative for Fever, Chills, recent illness HEENT: Negative for change in vision, headache, head trauma Cardio: No irregular heartbeats or Chest Pain Resp: No Shortness of Breath or Cough. Abd: no Abdominal Pain, Vomiting, Diarrhea, Nausea : no dysuria MSK: left wrist pain. No complaint of other joint or extremity pain today Neuro: Sensation intact throughout all extremities without numbness or parasthesias Heme: no history of blood clot Skin: no lacerations or rashes Physical Exam General: Well appearing, NAD HEENT: NCAT. EOMi, moist mucus membranes Cardio: S1S2 RRR Resp: CTA BL. no wheezes,rales or rhonchi ABD: bowel sounds normoactive in all 4 quadrants. Nontender to palpation, no guarding or rigidity. LUE: Skin envelope intact, volar splint in place. Active flexion and extension at elbow without associated pain. Shoulder with nonpainful active forward flexion and abduction. Sensation intact to light touch and capillary refill less than 2 seconds of all 5 digits. Intact flexion and extension of all 5 digits, painful and limited. RUE: Skin envelope intact, no obvious deformity, nontender to palpation. Active flexion and extension of digits, wrists, elbows without associated pain. Shoulders with nonpainful active forward flexion and abduction. B/L LE: Skin envelope intact, no obvious deformity, nontender to palpation. Active nonpainful flexion and extension of digits, ankle, knee and hip. Negative log roll bilaterally. Assessment: left distal radius fracture Plan: Patient can be WBAT on her lower extremities as CT scan was negative for hip fracture. ALFONSO VAZQUEZ, may use platform walker if needed for stability. She can have a carb consistent diet today and she will be taken to the OR tomorrow with Dr Bose. She has been seen by Dr Maxwell who confirms she is optimized from a cardiac standpoint. She should be NPO at midnight and anticioag held at midnight as well.
[2018-05-06] MEDS ORDERED: Buffered Lidocaine 0.9% SYRIN* 5 ML/SYR SYRINGE INTRADERM ONE (11:11)
[2018-05-06] MEDS: oxyCODONE/Acetamin 5/325 MG* TAB PO PRN ×2 (12:44→21:18)
--- NOTE | 2018-05-06 15:11 | PN ---
Subjective Date of Service: 05/06/18 Interval History: Pt is feeling well. She denies any pain at this time. She states that she just had pain medication recently. No SOB or CP. No other complaints. Objective Active Medications: Acetaminophen (Tylenol Tab*) 650 mg PO Q4H PRN PRN Reason: FEVER/PAIN Colchicine (Colcrys*) 0.6 mg PO BID [facility] Last Admin: 05/06/18 08:54 Dose: Not Given Dextrose (D50w Syringe 50 Ml*) 12.5 gm IV PUSH .FOR FS < 60 - SS PRN PRN Reason: FS < 60 Fluticasone Propionate (Flonase Nasal [place] 50mcg*) 2 spray BOTH NARES DAILY [facility] Last Admin: 05/06/18 08:59 Dose: Not Given Heparin Sodium (Porcine) (Heparin Vial(*)) 5,000 units SUBCUT Q8HR [facility] Stop: 05/06/18 23:59 Last Admin: 05/06/18 13:57 Dose: 5,000 units Lactated Ringer's (Lactated Ringers 1000 Ml Bag*) 1,000 mls @ 125 mls/hr IV PER RATE [facility] Insulin Human Lispro (Humalog*) 0 units SUBCUT AC [facility]; Protocol Last Admin: 05/06/18 12:58 Dose: 1 units Morphine Sulfate (Morphine Vial*) 2 mg IV Q4H PRN PRN Reason: PAIN - MILD Last Admin: 05/06/18 07:45 Dose: 2 mg Ondansetron HCl (Zofran Inj*) 4 mg IV Q6H PRN PRN Reason: NAUSEA Last Admin: 05/06/18 03:38 Dose: 4 mg Oxycodone/Acetaminophen (Percocet 5/325 Tab*) 1 tab PO Q8H PRN PRN Reason: PAIN Last Admin: 05/06/18 12:44 Dose: 1 tab Vital Signs - 8 hr 05/06/18 05/06/18 05/06/18 07:45 08:00 09:45 Temperature Pulse Rate Respiratory 18 18 18 Rate Blood Pressure (mmHg) O2 Sat by Pulse Oximetry 05/06/18 05/06/18 05/06/18 11:30 12:44 14:30 Temperature 98.6 F Pulse Rate 83 Respiratory 17 18 18 Rate Blood Pressure 107/57 (mmHg) O2 Sat by Pulse 92 Oximetry Oxygen Devices in Use Now: None Appearance: Elderly female lying in bed sleeping, awakens to voice, NAD Eyes: No Scleral Icterus Ears/Nose/Mouth/Throat: Mucous Membranes Moist Respiratory: Symmetrical Chest Expansion and Respiratory Effort, Clear to Auscultation Cardiovascular: NL Sounds; No Murmurs; No JVD, RRR, No Edema Abdominal: NL Sounds; No Tenderness; No Distention Extremities: - - L wrist in splint Skin: No Rash or Ulcers Neurological: Alert and Oriented x 3 Result Diagrams: 05/06/18 05:36 05/06/18 05:36 Microbiology and Other Data: Microbiology 05/05/18 12:29 Urine Culture - Final Urine Assess/Plan/Problems-Billing Ms Garcia is a 73 yo F who has a h/o type II DM and gout who presented to the ER after falling and sustaining a L wrist fracture. - Patient Problems (1) Left wrist fracture Current Visit: Yes Status: Acute Code(s): S62.102A - FRACTURE OF UNSP CARPAL BONE, LEFT WRIST, INIT FOR CLOS FX SNOMED Code(s): 400985314 Comment: S/P mechanical fall. Plan for OR tomorrow with Dr. Bose. (2) Type II diabetes mellitus Current Visit: Yes Status: Acute Comment: Sugars are mildly elevated. Will continue lispro sliding scale for now with plans to resume glipizide tomorrow after surgery. Last A1c was in 03/2018 and was mildly elevated at 8.1%. Tomorrow will discuss increasing the glipizide XL to 10mg BID. (3) RBBB Current Visit: Yes Status: Acute Code(s): I45.10 - UNSPECIFIED RIGHT BUNDLE- BRANCH BLOCK SNOMED Code(s): 66635405 Comment: No issues per Dr. Maxwell to proceed to OR. (4) Gout Current Visit: Yes Status: Acute Code(s): M10.9 - GOUT, UNSPECIFIED SNOMED Code(s): 82042158 Comment: Continue colchicine. (5) DVT prophylaxis Current Visit: Yes Status: Acute Code(s): GUU7202 - SNOMED Code(s): 741676249 Comment: SQ heparin (6) Full code status Current Visit: Yes Status: Acute Code(s): Z78.9 - OTHER SPECIFIED HEALTH STATUS SNOMED Code(s): 911053347
[2018-05-07] MEDS: Ibuprofen TAB* 400 MG PO PRN ×3 (05:56→19:27)
[2018-05-07] MEDS: Trolamine Salicyl. 10% CREAM* 85 GM TUBE TOPICAL PRN (06:09)
[2018-05-07 06:11] LABS: ABS Basophils 0.1 10^3/ul (0-0.2); ABS Eosinophils 0.2 10^3/ul (0-0.6); ABS Lymphocytes 2.2 10^3/ul (1.0-4.8); ABS Monocytes 0.9 10^3/ul (0-0.8); ABS Neutrophils 8.8 10^3/ul (1.5-7.7); ABS Nucleated RBC 0 10^3/ul; Hematocrit 42 % (35-47); Lymphocyte % 18.4 % (25-47); Mean Corpuscular HGB Conc 33 g/dl (31-36); Mean Corpuscular Hemoglobin 30 pg (27-31); Mean Corpuscular Volume 91 fL (80-97); Mean Platelet Volume 7.3 fL (7.4-10.4); Nucleated Red Blood Cells % 0.1; Platelet Count 188 10^3/ul (150-450); Red Blood Count 4.59 10^6/ul (4.00-5.40); Red Cell Distribution Width 13 % (10.5-15); White Blood Count 12.2 10^3/ul (3.5-10.8)
[2018-05-07 06:25] LABS: EGFR Non-African American 88.9 (>60)
[2018-05-07 06:41] LABS: INR 0.98 (0.77-1.02)
[2018-05-07] MEDS ORDERED: Lidocaine 2% PF * 5 ML VIAL ONE (06:45)
[2018-05-07] MEDS ORDERED: Propofol* 10 MG/ML 20 ML BTL IV PUSH ONE (06:45)
[2018-05-07] MEDS ORDERED: Midazolam* 1 MG/ML 2 ML VIAL (2 MG) ONE (06:46)
[2018-05-07] MEDS ORDERED: fentaNYL* 50 MCG/ML 2 ML VIAL (100 MCG VIAL) ONE (06:46)
[2018-05-07] MEDS ORDERED: ROPIVACAINE 5 MG/ML 30 ML BTL (0.5%) ONE (06:49)
[2018-05-07] MEDS ORDERED: Bupivacaine 0.5% W/EPI SDV* 30 ML VIAL ONE (07:02)
[2018-05-07] MEDS ORDERED: ceFAZolin 2 GM PREMIX in ORs 2 GM/50 ML BAG IVPB ONE (07:09)
[2018-05-07] MEDS ORDERED: Mepivacaine 2% MPF (20 MG/ML)* 20 ML MPF ONE (07:12)
[2018-05-07] MEDS ORDERED: Insulin REGULAR(*) 1 UNITS UNIT ONE (07:23)
[2018-05-07] MEDS ORDERED: fentaNYL* 50 MCG/ML 2 ML VIAL (100 MCG VIAL) IV PRN (08:07)
[2018-05-07] MEDS ORDERED: oxyCODONE TAB* 5 MG TAB PO PRN (08:07)
[2018-05-07] MEDS ORDERED: Naloxone* 0.4 MG/ML 1 ML VIAL IV PRN (08:07)
[2018-05-07] MEDS: Insulin LISPRO* 1 UNITS UNIT SUBCUT SCH ×3 (09:39→17:33)
[2018-05-07] MEDS: Fluticasone NASAL SPRAY 50MCG* 16 gm SPRAY BTL BOTH NARES SCH (09:44)
[2018-05-07] MEDS: Colchicine* 0.6 MG TAB PO SCH ×3 (09:45→19:30)
[2018-05-07] MEDS ORDERED: oxyCODONE/Acetamin 5/325 MG* TAB PO PRN (16:16)
--- NOTE | 2018-05-07 16:24 | PN ---
Subjective Date of Service: 05/07/18 Interval History: Pt is feeling ok. She states she is developing increasing pain in her L wrist now. She now does not feel comfortable going home tonight as she states she does not have any help at home currently. Objective Active Medications: Acetaminophen (Tylenol Tab*) 650 mg PO Q4H PRN PRN Reason: FEVER/PAIN Colchicine (Colcrys*) 0.6 mg PO BID [facility] Last Admin: 05/07/18 09:48 Dose: Not Given Dextrose (D50w Syringe 50 Ml*) 12.5 gm IV PUSH .FOR FS < 60 - SS PRN PRN Reason: FS < 60 Fluticasone Propionate (Flonase Nasal [place] 50mcg*) 2 spray BOTH NARES DAILY [facility] Last Admin: 05/07/18 09:44 Dose: 2 spray Heparin Sodium (Porcine) (Heparin Vial(*)) 5,000 units SUBCUT Q8HR [facility] Lactated Ringer's (Lactated Ringers 1000 Ml Bag*) 1,000 mls @ 125 mls/hr IV PER RATE [facility] Cefazolin Sodium/Dextrose (Kefzol 1 Gm In Dextrose Duplex (*)) 1 gm in 50 mls @ 100 mls/hr IVPB Q8H [facility] Stop: 05/08/18 08:29 Ibuprofen (Motrin Tab*) 400 mg PO Q6H PRN PRN Reason: HEADACHE Last Admin: 05/07/18 12:47 Dose: 400 mg Insulin Human Lispro (Humalog*) 0 units SUBCUT AC [facility]; Protocol Last Admin: 05/07/18 13:49 Dose: 1 units Morphine Sulfate (Morphine Vial*) 2 mg IV Q4H PRN PRN Reason: PAIN - MILD Last Admin: 05/06/18 07:45 Dose: 2 mg Ondansetron HCl (Zofran Inj*) 4 mg IV Q6H PRN PRN Reason: NAUSEA Last Admin: 05/06/18 03:38 Dose: 4 mg Oxycodone/Acetaminophen (Percocet 5/325 Tab*) 1 tab PO Q4H PRN PRN Reason: PAIN Trolamine Salicylate (Myoflex 10% Cream*) 1 applic TOPICAL TID PRN PRN Reason: .PAIN Last Admin: 05/07/18 06:09 Dose: 1 applic Vital Signs - 8 hr 11/05/07/18 05/07/18 08:37 08:39 08:40 Temperature 97.7 F Pulse Rate 102 103 103 Respiratory 19 19 20 Rate Blood Pressure 103/62 118/64 (mmHg) O2 Sat by Pulse 96 96 96 Oximetry 05/07/18 05/07/18 05/07/18 08:45 08:50 08:55 Temperature Pulse Rate 106 101 98 Respiratory 20 20 19 Rate Blood Pressure 125/72 118/66 118/62 (mmHg) O2 Sat by Pulse 95 95 95 Oximetry 05/07/18 05/07/18 05/07/18 09:00 09:20 10:28 Temperature 98.7 F 98.8 F Pulse Rate 95 103 102 Respiratory 19 18 14 Rate Blood Pressure 116/65 120/61 115/57 (mmHg) O2 Sat by Pulse 95 100 97 Oximetry 05/07/18 15:24 Temperature 98.6 F Pulse Rate 75 Respiratory 16 Rate Blood Pressure 129/68 (mmHg) O2 Sat by Pulse 97 Oximetry Oxygen Devices in Use Now: None Appearance: Elderly female sitting up on the edge of the bed, NAD Eyes: No Scleral Icterus Ears/Nose/Mouth/Throat: Mucous Membranes Moist Respiratory: Symmetrical Chest Expansion and Respiratory Effort, Clear to Auscultation Cardiovascular: NL Sounds; No Murmurs; No JVD, RRR, No Edema Abdominal: NL Sounds; No Tenderness; No Distention Extremities: No Clubbing, Cyanosis, - - L wrist in cast/MAXIMO wrap Skin: No Nodules or Sclerosis Neurological: Alert and Oriented x 3 Result Diagrams: 05/07/18 05:55 05/07/18 05:55 Microbiology and Other Data: Microbiology 05/05/18 12:29 Urine Culture - Final Urine Assess/Plan/Problems-Billing Ms Garcia is a 73 yo F who has a h/o type II DM and gout who presented to the ER after falling and sustaining a L wrist fracture. - Patient Problems (1) Left wrist fracture Current Visit: Yes Status: Acute Code(s): S62.102A - FRACTURE OF UNSP CARPAL BONE, LEFT WRIST, INIT FOR CLOS FX SNOMED Code(s): 130749266 Comment: S/P mechanical fall. She went to the OR earlier today for ORIF. Change percocet to tramadol for pain control. Continue post op IV Abx. Possibly d/c home tomorrow. (2) Type II diabetes mellitus Current Visit: Yes Status: Acute Comment: For now add back glipizide XL 5mg BID and monitor sugars. If still elevated sugars tomorrow or as outpatient dose should be increased. (3) RBBB Current Visit: Yes Status: Acute Code(s): I45.10 - UNSPECIFIED RIGHT BUNDLE- BRANCH BLOCK SNOMED Code(s): 35985104 Comment: No issues per Dr. Maxwell. (4) Gout Current Visit: Yes Status: Acute Code(s): M10.9 - GOUT, UNSPECIFIED SNOMED Code(s): 40232557 Comment: Continue colchicine. (5) DVT prophylaxis Current Visit: Yes Status: Acute Code(s): VPW9557 - SNOMED Code(s): 720159107 Comment: SQ heparin (6) Full code status Current Visit: Yes Status: Acute Code(s): Z78.9 - OTHER SPECIFIED HEALTH STATUS SNOMED Code(s): 541784983
[2018-05-07] MEDS: traMADol TAB* 50 MG PO PRN (16:46)
[2018-05-07] MEDS: glipiZIDE TAB.XL* 5 MG PO SCH (16:47)
[2018-05-07] MEDS: ceFAZolin 1 GM in Dextrose (*) 1 GM/50 ML BAG IVPB SCH (16:48)
[2018-05-07] MEDS ORDERED: Morphine VIAL* 4 MG/ML VIAL (1 ml vial) IV PRN (19:13)
[2018-05-07] MEDS: Morphine VIAL* 4 MG/ML VIAL (1 ml vial) IV PRN (19:25)
--- NOTE | 2018-05-07 21:47 | OP ---
DATE OF OPERATION: 05/07/18 - ROOM #350 DATE OF : 41 SURGEON: Cortes Bose MD QUAD STAYER: AD Fisher ANESTHESIA: Regional and sedation. PRE-OP DIAGNOSIS: Angulated and displaced left distal radius fracture. POST-OP DIAGNOSIS: Angulated and displaced left distal radius fracture. OPERATIVE PROCEDURE: Closed reduction and percutaneous pinning, left distal radius fracture. ESTIMATED BLOOD LOSS: Negligible. COMPLICATIONS: None. INDICATIONS: Ms. Garcia is a 73-year-old female who had fallen on Saturday evening, sustaining a displaced left distal radius fracture. She was very anxious and had quite a bit of pain and wanted to be knockout for any sort of manipulation. She also had sustained an injury to her back and hip, but these were not something which needed to be treated operatively. I had tried to get her on for the OR schedule initially, but the schedule had been booked until much later on Saturday, so she was added on for first thing Saturday, today. She also had a mitral valve replacement which had not been evaluated in many years, so she did need Cardiology clearance which was done yesterday. I discussed with her that a closed reduction and percutaneous pinning should work well to realign the bones and hold them in place while this heals. Risks of surgery such as pin tract infection, scar formation, stiffness, nonhealing of the bone, continued pain, and loss of motion and function of the hand were discussed and she had wished to proceed. DESCRIPTION OF PROCEDURE: The patient had a block placed in the holding area and was brought back to the OR. Sedation was given. Tourniquet was placed over the proximal left arm and was not used during the case. Splint was taken down and obvious deformity to the wrist was immediately evidenced. Left forearm was prepped and then draped. Closed reduction was performed and this restored the radial fragments to the top side of the radius, but she was still dorsally angulated. With additional manipulation, some slight volar tilt was obtained. The 0.062 K- wires were then run and adjusted until I had a nice support for the bony fragments. Final C-arm pictures were then saved. Wires were cut, bent and caps applied. Xeroform was placed about the tracks and by the radial styloid. A little of the skin was released. Fluffs were used about the pins and Webril was placed to hold everything in place. Sugar tong splint was applied leaving the fingers free, so she could flex to 90 degrees at the MCP joints. The patient was then awake and stable on transfer to the recovery room. [id number]/[facility] #: [id number] MTDD
[2018-05-08] MEDS: Ibuprofen TAB* 400 MG PO PRN ×2 (00:15→11:59)
[2018-05-08] MEDS: ceFAZolin 1 GM in Dextrose (*) 1 GM/50 ML BAG IVPB SCH ×2 (00:22→08:05)
[2018-05-08 05:32] LABS: ABS Basophils 0.1 10^3/ul (0-0.2); ABS Eosinophils 0.4 10^3/ul (0-0.6); ABS Lymphocytes 3.1 10^3/ul (1.0-4.8); ABS Monocytes 0.9 10^3/ul (0-0.8); ABS Nucleated RBC 0 10^3/ul; Eosinophil % 3.8 % (0-6); Hematocrit 37 % (35-47); Hemoglobin 12.7 g/dl (12.0-16.0); Lymphocyte % 29.4 % (25-47); Mean Corpuscular HGB Conc 34 g/dl (31-36); Mean Corpuscular Hemoglobin 31 pg (27-31); Mean Corpuscular Volume 90 fL (80-97); Mean Platelet Volume 7.4 fL (7.4-10.4); Nucleated Red Blood Cells % 0.1; Platelet Count 160 10^3/ul (150-450); Red Blood Count 4.14 10^6/ul (4.00-5.40); Red Cell Distribution Width 13 % (10.5-15); White Blood Count 10.5 10^3/ul (3.5-10.8)
[2018-05-08 05:45] LABS: EGFR Non-African American 93.8 (>60)
[2018-05-08] MEDS: Insulin LISPRO* 1 UNITS UNIT SUBCUT SCH ×3 (07:04→17:54)
[2018-05-08] MEDS: traMADol TAB* 50 MG PO PRN ×2 (08:03→21:15)
[2018-05-08] MEDS: glipiZIDE TAB.XL* 5 MG PO SCH ×2 (08:03→17:54)
[2018-05-08] MEDS: Colchicine* 0.6 MG TAB PO SCH ×3 (08:03→21:15)
[2018-05-08] MEDS: Fluticasone NASAL SPRAY 50MCG* 16 gm SPRAY BTL BOTH NARES SCH (08:06)
[2018-05-08] MEDS: Trolamine Salicyl. 10% CREAM* 85 GM TUBE TOPICAL PRN (10:57)
--- NOTE | 2018-05-08 11:03 | PN ---
Progress Note - Progress Note Date of Service: 05/08/18 SOAP: Subjective: [Pt was seen today sitting in chair. She states that she is not yet ready to go home as her daughter and grand daughter are working on setting up support for her tonight. She feels very unsteady and has yet to be properly evaluated by PT. She denies any n/t, n,v,d,c.] Objective: [General: A&Ox3, NAD although very nervous MSK, LUE: Splint is in place. Pt is able to wiggle fingers spontaneously. full sensation and brisk cap refill present. ] Vital Signs Temp 97.3 F 05/08/18 07:32 Pulse 87 05/08/18 07:32 Resp 18 05/08/18 08:03 BP 150/80 05/08/18 07:32 Pulse Ox 96 05/08/18 07:32 Intake & Output 05/07/18 05/08/18 05/08/18 18:59 06:59 18:59 Intake Total 1415 420 Output Total 600 300 Balance 815 120 Intake: IV Fluids 620 LR 600 NS (0.9%) 20 IVPB 55 NS (0.9%) 55 Oral 740 420 Output: Urine 600 300 Other: Estimated Void Medium # Bowel Movements 0 Assessment: [POD 1 Left wrist closed reduction and precutaneous pinning ] Plan: [- Continue with current anticoagulation - PT to evaluate pt today - Continue with current pain medication - Possible D/C tomorrow by hospitalists. ]
[2018-05-08] MEDS: Heparin VIAL(*) 5000 UNITS/ML VIAL (FIVE THOUSAND) SUBCUT SCH ×3 (12:00→21:17)
--- NOTE | 2018-05-08 14:05 | PN ---
Subjective Date of Service: 05/08/18 Interval History: Pt seen and examined. Meds and labs reviewed. No O/N issues. CC: Tolerable chronic back pain and post-operative pain that responds with PRN pain meds. Some nausea, tolerable. Advised to ask for anti-nausea meds PRN. ROS: Denied GALVAN/dizziness, F/C, N/V, CP, SOB, increased cough, sputum production , abd pain, diarrhea, constipation, dysuria, myalgias, arthralgias, throat pain , and new skin lesions. The rest of the 14 point ROS are unremarkable. PHYSICAL EXAM: GEN APPEARANCE: Awake, not in acute distress HEENT: NC/AT, PERRLA, moist oral mucosa, (-) throat erythema NECK: Soft, supple, (-) cervical LAD, (-)JVD HEART: S1S2 WNL, RRR, No MRG CHEST: CTA, BL, GAE, No W/R/R ABD: Soft, ND/NT, NABS 4x Q EXT: No C/C/LUE cdi dressings SKIN: Warm to touch PSYCH: No active psychosis, hallucinations, depression, SI/HI Objective Active Medications: Acetaminophen (Tylenol Tab*) 650 mg PO Q4H PRN PRN Reason: FEVER/PAIN Colchicine (Colcrys*) 0.6 mg PO BID [facility] Last Admin: 05/08/18 08:07 Dose: Not Given Dextrose (D50w Syringe 50 Ml*) 12.5 gm IV PUSH .FOR FS < 60 - SS PRN PRN Reason: FS < 60 Fluticasone Propionate (Flonase Nasal [place] 50mcg*) 2 spray BOTH NARES DAILY [facility] Last Admin: 05/08/18 08:06 Dose: Not Given Glipizide (Glucotrol Xl*) 5 mg PO BID WITH MEALS [facility] Last Admin: 05/08/18 08:03 Dose: 5 mg Heparin Sodium (Porcine) (Heparin Vial(*)) 5,000 units SUBCUT Q8HR [facility] Last Admin: 05/08/18 13:15 Dose: 5,000 units Lactated Ringer's (Lactated Ringers 1000 Ml Bag*) 1,000 mls @ 125 mls/hr IV PER RATE [facility] Ibuprofen (Motrin Tab*) 400 mg PO Q6H PRN PRN Reason: HEADACHE Last Admin: 05/08/18 11:59 Dose: 400 mg Insulin Human Lispro (Humalog*) 0 units SUBCUT AC [facility]; Protocol Last Admin: 05/08/18 13:14 Dose: 2 units Morphine Sulfate (Morphine Vial*) 2 mg IV Q4H PRN PRN Reason: PAIN - MILD Last Admin: 05/07/18 19:25 Dose: 2 mg Ondansetron HCl (Zofran Inj*) 4 mg IV Q6H PRN PRN Reason: NAUSEA Last Admin: 05/06/18 03:38 Dose: 4 mg Tramadol HCl (Ultram*) 50 mg PO Q6H PRN PRN Reason: PAIN Last Admin: 05/08/18 08:03 Dose: 50 mg Trolamine Salicylate (Myoflex 10% Cream*) 1 applic TOPICAL TID PRN PRN Reason: .PAIN Last Admin: 05/08/18 10:57 Dose: 1 applic Vital Signs - 8 hr 05/08/18 05/08/18 05/08/18 07:32 08:00 08:03 Temperature 97.3 F Pulse Rate 87 Respiratory 16 18 18 Rate Blood Pressure 150/80 (mmHg) O2 Sat by Pulse 96 Oximetry 05/08/18 05/08/18 11:13 11:19 Temperature 97.8 F Pulse Rate 82 Respiratory 18 16 Rate Blood Pressure 121/83 (mmHg) O2 Sat by Pulse 95 Oximetry Oxygen Devices in Use Now: None Result Diagrams: 05/08/18 05:11 05/08/18 05:11 Microbiology and Other Data: Microbiology 05/05/18 12:29 Urine Culture - Final Urine Assess/Plan/Problems-Billing Ms Garcia is a 73 yo F who has a h/o type II DM and gout who presented to the ER after falling and sustaining a L wrist fracture. - Patient Problems (1) Left wrist fracture Current Visit: Yes Status: Acute Code(s): S62.102A - FRACTURE OF UNSP CARPAL BONE, LEFT WRIST, INIT FOR CLOS FX SNOMED Code(s): 396208216 Comment: -#Left distal radius fracture S/P closed reductions with percutaneous pinning POD#1 -Due to mechanical fall -Defer with perioperative pain, acitivity, and care with orthopedic (2) Type II diabetes mellitus Current Visit: Yes Status: Acute Comment: -Continue current regimen and watchful waiting (3) RBBB Current Visit: Yes Status: Acute Code(s): I45.10 - UNSPECIFIED RIGHT BUNDLE- BRANCH BLOCK SNOMED Code(s): 59991289 Comment: -No issues per Dr. Maxwell -Pt R/O for PE with CTA of chest (4) Gout Current Visit: Yes Status: Acute Code(s): M10.9 - GOUT, UNSPECIFIED SNOMED Code(s): 66894651 Comment: Continue colchicine. (5) DVT prophylaxis Current Visit: Yes Status: Acute Code(s): ZUN9580 - SNOMED Code(s): 535762778 Comment: -SQ heparin Status and Disposition: -For possible D/C in AM vs SHALOM---per family, trying to get aid prior to D/C
[2018-05-09] MEDS: traMADol TAB* 50 MG PO PRN ×2 (03:30→16:28)
[2018-05-09 06:21] LABS: ABS Basophils 0.1 10^3/ul (0-0.2); ABS Eosinophils 0.4 10^3/ul (0-0.6); ABS Neutrophils 6.2 10^3/ul (1.5-7.7); ABS Nucleated RBC 0 10^3/ul; Eosinophil % 3.4 % (0-6); Hematocrit 37 % (35-47); Hemoglobin 12.5 g/dl (12.0-16.0); Lymphocyte % 28.1 % (25-47); Mean Corpuscular HGB Conc 34 g/dl (31-36); Mean Corpuscular Hemoglobin 31 pg (27-31); Mean Corpuscular Volume 90 fL (80-97); Mean Platelet Volume 7.3 fL (7.4-10.4); Nucleated Red Blood Cells % 0; Platelet Count 164 10^3/ul (150-450); Red Cell Distribution Width 13 % (10.5-15); White Blood Count 10.6 10^3/ul (3.5-10.8)
[2018-05-09 06:39] LABS: EGFR Non-African American 103.4 (>60)
[2018-05-09] MEDS: Heparin VIAL(*) 5000 UNITS/ML VIAL (FIVE THOUSAND) SUBCUT SCH ×2 (06:45→14:10)
[2018-05-09] MEDS: Ibuprofen TAB* 400 MG PO PRN (08:23)
[2018-05-09] MEDS: Insulin LISPRO* 1 UNITS UNIT SUBCUT SCH ×3 (10:19→16:35)
[2018-05-09] MEDS: Colchicine* 0.6 MG TAB PO SCH (10:20)
[2018-05-09] MEDS: glipiZIDE TAB.XL* 5 MG PO SCH (10:20)
[2018-05-09] MEDS: Fluticasone NASAL SPRAY 50MCG* 16 gm SPRAY BTL BOTH NARES SCH (10:21)
[2018-05-09 12:28] VITALS: BP 118/68
--- NOTE | 2018-05-09 21:32 | DS ---
CC: Dr. Zain Jeffries; Dr. Robson Maxwell; Dr. Cortes Bose; Erwin James NP DISCHARGE SUMMARY: DATE OF ADMISSION: DATE OF DISCHARGE: DISCHARGE DIAGNOSES: 1. Left distal radius fracture, status post closed reduction with percutaneous pinning, postoperative day #2 on discharge. 2. History of diabetes mellitus. 3. Right bundle-branch block, new from previous EKG that was taken many years ago. 4. History of gout. 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 She sustained a left wrist fracture, distal radius fracture and then underwent a percutaneous pinning with Dr. Bose and perioperatively, the patient has done well. On her initial evaluation, she was found to have a new right bundle-branch block, which was new in comparison to her previous EKG available from her previous visit. Unfortunately, the previous EKG was back in 2010. However, she had been evaluated preoperatively by Dr. Maxwell, who mentioned that her echocardiogram is unchanged from 2012 despite the new EKG findings and has done well postoperatively. She was also seen by Physical Therapy prior to her discharge who recommended discharge home with [facility] and/or aide versus SHALOM placement. The patient and family preferred discharge home to [facility] and therefore, she will be discharged as such. I have also touched base with Orthopedic Surgery who mentions that they would like her to be on DVT prophylaxis for 2 weeks. The patient did have some concerns given she mentions that she was bleeding quite a bit from her IV site when it was removed, and I have explained to her the risks and benefits of anticoagulation in the perioperative setting. She had been advised to follow up and/or call her PCP within 3 days postdischarge and to follow up with Dr. Bose in 10 to 14 days and to call [phone] to make/confirm an appointment. She was advised that if she has any type of bleeding that does not stop to hold any further anticoagulation and call her PCP and/or orthopedic surgeon and discuss. She was advised that if she needed more pain medications to contact either her PCP and/or orthopedic surgeon for refills. If her symptoms resume or develop new ones, she was advised to call her PCP first and if her PCP cannot entertain her due to scheduling issues alone to call [facility] if the issue is considered nonemergent. She was advised to call my office regarding any questions, concerns, or further clarifications regarding her discharge plans and/or prescriptions and to take her medications as prescribed. REVIEW OF SYSTEMS: She currently denies any headaches, dizziness, fevers, chills, nausea, vomiting, chest pain, shortness of breath, increased coughing or sputum production, abdominal pain, diarrhea, constipation, pain and/or increased frequency on urination, myalgias, arthralgias, throat pain, or new skin lesions. The rest of the 14-point review of systems are otherwise unremarkable. PHYSICAL EXAMINATION: Reveals a most recent vital signs of record with blood pressure of 118/68, 98.1 degrees Fahrenheit, 84 beats per minute heart rate, 18 per minute respiratory rate, saturating at 93% on room air. General Appearance : The patient is awake, alert, and oriented x3, not in acute distress. HEENT: Normocephalic, atraumatic. PERRLA. Extraocular muscles intact. Negative for icterus. Moist oral mucosa. Negative throat erythema. Neck is soft, supple with no cervical lymphadenopathy, no JVD. Heart: S1, S2 within normal limits. Regular rate and rhythm. No murmurs, rubs, or gallops. Chest: Clear to auscultation bilaterally. Good air entry. No wheezes, rales, or rhonchi. Abdomen is soft, nondistended, nontender. Normoactive bowel sounds 4xQ. Extremities: No cyanosis, clubbing, or edema. She does have a left upper extremity dressing that is CDI. Psychiatric: No active psychosis, depression, suicidal or homicidal ideation. Skin is warm to touch. TIME SPENT: The total time spent evaluating the patient, reviewing pertinent data, and appropriate documentation is 50 minutes. [id number]/[facility] #: [id number] HARVEY
== END 2018-05-09 16:35 | disposition home health service (06) | DRG 512 ==
LOC: ED 12:16 → SSU 15:29
PROVIDERS: ADMIT Student in an Organized Health Care Education/Training Program; ATTEND Student in an Organized Health Care Education/Training Program
PROC: 0PSJ34Z Reposition Left Radius with Internal Fixation Device, Percutaneous Approach (ICD-10-PCS; principal; 2018-05-07 07:30)
DX: S52.502A Unspecified fracture of the lower end of left radius, initial encounter for closed fracture (principal); M10.9 Gout, unspecified; E11.9 Type 2 diabetes mellitus without complications; I27.20 Pulmonary hypertension, unspecified; I45.10 Unspecified right bundle-branch block; R09.02 Hypoxemia; R00.0 Tachycardia, unspecified; M47.816 Spondylosis without myelopathy or radiculopathy, lumbar region; S52.612A Displaced fracture of left ulna styloid process, initial encounter for closed fracture; M25.551 Pain in right hip; W11.XXXA Fall on and from ladder, initial encounter; M54.5 Low back pain; G89.29 Other chronic pain; Z90.89 Acquired absence of other organs; Z98.49 Cataract extraction status, unspecified eye; Y92.9 Unspecified place or not applicable; Z88.0 Allergy status to penicillin; Z95.3 Presence of xenogenic heart valve; Z83.3 Family history of diabetes mellitus; Z88.1 Allergy status to other antibiotic agents; Z80.9 Family history of malignant neoplasm, unspecified
CPT/HCPCS: 36415; 70450; 71045; 71275; 72100; 72125; 72192; 76000; 80048; 80053; 81003; 81015; 83605; 83735; 84100; 84484; 85025; 85610; 85730; 87040; 87086; 93005; 93306; 99284; A9270-GY; C1776; G8978-GP-CI; G8979-GP-CH; G8987-GO-CI; G8988-GO-CI; G8989-GO-CI; J0670; J0690; J1644; J2250; J2270; J2405; J2704; J2795; J3010; Q9967

== ENCOUNTER 2019-02-18 06:00 | Inpatient (IN) | payer MEDICARE, MEDICAID ==
[2019-02-18] MEDS ORDERED: Aspirin 81 mg CHEW TAB* 81 MG TAB.CHEW PO ONE (06:18)
--- NOTE | 2019-02-18 06:19 | ED ---
HPI Chest Pain - HPI Summary HPI Summary: This patient is a 74 year old F with a hx of DM and mitral valve replacement presenting to ED with a chief complaint of chest pain since two days ago. She states the pain worsened last night around 10 pm when she was trying to go to sleep and could not 2/2 pain. Patient describes the pain as intermittent in severity (stronger then weaker) but worse this morning. It is described as a hard pain. The pain radiates down the left arm and into the back. The patient rates the pain 7/10 in severity. Patient has never had an AK before or CP like this before. PSHx of mitral valve replacement in 2008. Patient arrives at 0600. Dr. Mcqueen at bedside at 0605. STEMI alert called at 0615. - History of Current Complaint Hx Obtained From: Patient Onset/Duration: Started Days Ago - 2 days, Still Present, Worse Since Timing: Intermittent - Waxing and waning in severity Initial Severity: Moderate Current Severity: Moderate Pain Intensity: 7 Pain Scale Used: 0-10 Numeric Chest Pain Radiates: Yes Chest Pain Radiates To:: Back, Arm - Left Character: Other: - "Hard pain" Associated Signs and Symptoms: Positive: Chest Pain, Shortness of Breath - Additional Pertinent History Primary Care Physician: [id number] - Allergy/Home Medications Allergies/Adverse Reactions: Allergies Allergy/AdvReac Type Severity Reaction Status Date / Time doxycycline Allergy Nausea Verified 01/22/19 11:54 Penicillins Allergy Rash Verified 01/22/19 11:54 PMH/Surg Hx/FS Hx/Imm Hx Endocrine/Hematology History: Reports: Hx Diabetes Denies: Hx Thyroid Disease Cardiovascular History: Reports: Other Cardiovascular Problems/Disorders - mitral valve replacement Denies: Hx Hypertension, Hx Pacemaker/ICD Respiratory History: Denies: Hx Asthma, Hx Chronic Obstructive Pulmonary Disease (COPD) GI History: Denies: Hx Ulcer History: Reports: Hx Kidney Stones Denies: Hx Renal Disease Musculoskeletal History: Reports: Hx Arthritis - R hip Denies: Hx Gout Sensory History: Reports: Hx Cataracts - Had surgery on them, Hx Hearing Problem - [place] bilaterally Denies: Hx Contacts or Glasses, Hx Hearing Aid Opthamlomology History: Reports: Hx Cataracts - Had surgery on them Denies: Hx Contacts or Glasses Psychiatric History: Denies: Hx Panic Disorder - Surgical History Surgery Procedure, Year, and Place: APPY , CSECT '69, CATARACT '10, COMPLICATIONS AND STAPH IN [place] FOLLOWING HEART SURGERY-*. HEART VALVE REPLACEMENT 2008-[facility] HEART VALVE MODEL 803B41-[id number] FOR UP TO 3T-PT WILL BRING CARD TO COPY. LEFT WRIST 04/2018 Infectious Disease History: Denies: Hx Hepatitis, Hx Human Immunodeficiency Virus (HIV), Traveled Outside the [place] in Last 30 Days - Family History Known Family History: Positive: Diabetes - Social History Alcohol Use: None Hx Substance Use: No Substance Use Type: Reports: None Hx Tobacco Use: No Smoking Status (MU): Never Smoked Tobacco Review of Systems Positive: Chest Pain Positive: Shortness Of Breath All Other Systems Reviewed And Are Negative: Yes Physical Exam - Summary Physical Exam Summary: Constitutional: Well-developed, Well-nourished, Alert. (-) Distressed Skin: Warm, Dry HENT: Normocephalic; Atraumatic Eyes: Conjunctiva normal Neck: Musculoskeletal ROM normal neck. (-) JVD, (-) Stridor, (-) Nuchal rigidity Cardio: Rhythm regular, tachycardic; Intact distal pulses; Radial pulses are 2+ and symmetric (+) Murmur Pulmonary/Chest wall: Effort normal. (-) Respiratory distress, (-) Wheezes, (-) Rales Abd: Soft, (-) tenderness, (-) Distension, (-) Guarding, (-) Rebound Musculoskeletal: (-) Edema Lymph: (-) Cervical adenopathy Neuro: Alert, Oriented x3 Psych: Mood and affect Normal Triage Information Reviewed: Yes Vital Signs On Initial Exam: Initial Vitals Temp Pulse Resp BP Pulse Ox 97.6 F 104 20 156/92 96 02/18/19 06:03 02/18/19 06:03 02/18/19 06:03 02/18/19 06:03 02/18/19 06:03 Vital Signs Reviewed: Yes Diagnostics - Laboratory Result Diagrams: 02/18/19 06:45 Lab Statement: Any lab studies that have been ordered have been reviewed, and results considered in the medical decision making process. - Radiology CXR Radiology Interpretation Completed By: ED Physician Summary of Radiographic Findings: No acute abnormalities, pending official radiology report. - EKG 0600 Cardiac Rate: Tachycardia - 101 EKG Rhythm: Sinus Tachycardia EKG Comparison: Other - New ST elevations in V3 and V4. Summary of EKG Findings: An EKG at 0600 revealed sinus tachycardia at 101 BPM, RBBB, new ST elevations in V2 through V4. 0612 Cardiac Rate: Tachycardia - 103 BPM EKG Rhythm: Sinus Bradycardia Summary of EKG Findings: A repeat EKG at 0612 revealed sinus tachycardia at 103 BPM, RBBB, ST elevations in V2 through V4, STEMI. Re-Evaluation - Re-Evaluation First Eval Re-Evaluation Time: 06:47 Change: Improved Comment: Cath team at bedside. Patient received aspirin and heparin. Patient reports feeling better. Labs being redrawn. Second Eval Re-Evaluation Time: 06:59 Comment: Dr. Pike at bedside. Patient got 180 brillinta. Patient taken to lab manager. Chest Pain Course/Dx - Course Course Of Treatment: 74 y/o F w hx mitral valve replacement p/w CP for 2 days. - EKG at 6:[address] elevations in V3 and V4. Change from prior EKG. Repeat EKG shows increasing ST elevations in V2-V4. STEMI called at 6:15. - patient given aspirn 324 and heparin 3450 mg. - Diagnoses Provider Diagnoses: STEMI (ST elevation myocardial infarction) During the Visit The Following Alert/Code Occurred: STEMI - Provider Notifications Discussed Care Of Patient With: Gill Pike Time Discussed With Above Provider: 06:21 Instructed by Provider To: Other - Discussed patient case with Dr. Pike, interventionalist, who will evaluate the patient. At 0659, Dr. Pike arrives. Patient taken to lab manager. - Critical Care Time Critical Care Time: 30-74 min - 60 minutes Discharge ED - Sign-Out/Discharge Documenting (check all that apply): Patient Departure - Admit Patient Received Moderate/Deep Sedation with Procedure: No - Discharge Plan Condition: Fair Disposition: ADMITTED TO [facility] - Billing Disposition and Condition Condition: FAIR Disposition: Admitted to [facility] - Attestation Statements Document Initiated by Scribe: Yes Documenting Scribe: Bjorn Ross Provider For Whom Scribe is Documenting (Include Credential): Pan Mcqueen MD Scribe Attestation: Bjorn Headley, scribed for Pan Mcqueen MD on 02/18/19 at 0709. Scribe Documentation Reviewed: Yes Provider Attestation: The documentation as recorded by the scribe, Bjorn Ross accurately reflects the service I personally performed and the decisions made by me, Pan Mcqueen MD Status of Scribe Document: Viewed
[2019-02-18] MEDS ORDERED: Ticagrelor* 90 MG TAB PO ONE ×2 (06:33→06:59)
[2019-02-18] MEDS ORDERED: Heparin for STEMI(*) 5,000 UNITS/ML 1 ML VIAL IV ONE (06:34)
[2019-02-18] MEDS ORDERED: Heparin(*) 1000 UNIT/ML 10 ML VIAL CATH LAB IV ONE (06:41)
[2019-02-18] MEDS ORDERED: VERAPAMIL 2.5 MG/ML 2 ML VIAL ** 5 mg/2 ml ONE (06:41)
[2019-02-18] MEDS ORDERED: Heparin 2 UNITS/ML IVPREMIX* 3,000 ML IV ONE (06:42)
[2019-02-18] MEDS ORDERED: Iohexol 350 (CONTRAST) 200 ML MDV IV ONE ×2 (06:42→07:00)
[2019-02-18] MEDS ORDERED: Lidocaine 1% INJ* 10 MG/ML 30 ML SDV ONE (06:42)
[2019-02-18] MEDS ORDERED: nitroGLYCERIN DRIP* 25,000 MCG/250 ML BTL ONE (06:42)
[2019-02-18 07:03] LABS: ABS Basophils 0.1 10^3/ul (0-0.2); ABS Eosinophils 0.1 10^3/ul (0-0.6); ABS Lymphocytes 2.6 10^3/ul (1.0-4.8); ABS Monocytes 0.8 10^3/ul (0-0.8); ABS Neutrophils 6.6 10^3/ul (1.5-7.7); Eosinophil % 1.4 %; Hematocrit 42 % (35-47); Lymphocyte % 25.8 %; Mean Corpuscular HGB Conc 34 g/dL (31-36); Mean Corpuscular Hemoglobin 30 pg (27-31); Mean Corpuscular Volume 90 fL (80-97); Mean Platelet Volume 7.8 fL (7.4-10.4); Platelet Count 184 10^3/uL (150-450); Red Blood Count 4.61 10^6 /uL (3.70-4.87); Red Cell Distribution Width 14 % (10-15); White Blood Count 10.2 10^3/uL (3.5-10.8)
[2019-02-18 07:09] LABS: INR 1.03 (0.82-1.09)
[2019-02-18] MEDS ORDERED: fentaNYL* 50 MCG/ML 2 ML VIAL (100 MCG VIAL) ONE (07:18)
[2019-02-18] MEDS ORDERED: Midazolam* 1 MG/ML 5 ML VIAL (5 MG) ONE (07:18)
[2019-02-18 07:32] LABS: ALT 22 U/L (7-52); AST 30 U/L (13-39); Albumin 3.9 g/dL (3.2-5.2); Albumin/Globulin Ratio 1.4 (1-3); Alkaline Phosphatase 66 U/L (34-104); Anion Gap 8 mmol/L (2-11); BUN/Creatinine Ratio 29.3 (8-20); Blood Urea Nitrogen 22 mg/dL (6-24); CO2 Carbon Dioxide 27 mmol/L (22-32); Calcium 9.1 mg/dL (8.6-10.3); Chloride 105 mmol/L (101-111); Creatine Kinase 203 U/L (10-223); EGFR African American 90.9 (>60); EGFR Non-African American 75.1 (>60); Globulin 2.7 g/dL (2-4); Glucose 206 mg/dL (70-100); LDL Cholesterol Direct 173 mg/dL; Potassium 3.8 mmol/L (3.5-5.0); Sodium 140 mmol/L (135-145); Total Protein 6.6 g/dL (6.4-8.9)
[2019-02-18 07:36] LABS: Myoglobin 278.3 ng/mL (14.3-65.8)
[2019-02-18 07:37] LABS: CKMB ng/mL 27.8 ng/mL (0.6-6.3)
[2019-02-18 07:38] LABS: Troponin I 1.53 ng/mL (<0.04)
[2019-02-18] MEDS ORDERED: Nitroglycerin TAB 0.4 MG* 0.4 MG TAB SL PRN (08:21)
[2019-02-18] MEDS ORDERED: NS 0.9% 1000 ML** 1,000 ML IV SCH (08:30)
[2019-02-18 08:43] LABS: Cholesterol 234 mg/dL; LDL Cholesterol 159 mg/dL; Triglycerides 146 mg/dL
[2019-02-18 09:20] LABS: Creatine Kinase 498 U/L (10-223)
[2019-02-18 09:25] LABS: CKMB ng/mL 92.1 ng/mL (0.6-6.3)
[2019-02-18 09:26] LABS: Troponin I 7.35 ng/mL (<0.04)
[2019-02-18] MEDS: Captopril TAB* 12.5 MG PO SCH ×3 (09:38→20:24)
[2019-02-18] MEDS: Aspirin 81 mg CHEW TAB* 81 MG TAB.CHEW PO SCH (09:38)
[2019-02-18] MEDS: Carvedilol TAB* 6.25 MG PO SCH ×2 (09:38→20:25)
[2019-02-18] MEDS ORDERED: Mometasone NASAL (NF) SPRAY BOTH NARES SCH (11:00)
--- NOTE | 2019-02-18 12:55 | HP ---
HISTORY AND PHYSICAL: DATE OF ADMISSION: 02/18/19 ATTENDING PHYSICIAN: Dr. Gill Pike, Cardiology* (dictated by Candie Saldana NP). PRIMARY CARE PROVIDER: Erwin James NP PRIMARY PRINCIPAL TECHNICAL SPECIALIST: Historically, Dr. iGana Vargas, last seen in our practice in 2011. CHIEF COMPLAINT: Chest pain radiating down left arm, left shoulder. HISTORY OF PRESENT ILLNESS: This is a pleasant 74-year-old female patient with a history of mitral valve prolapse with associated mitral insufficiency, who underwent mitral valve replacement in 2008 with #29 mosaic valve. She also has a notable history of type 2 diabetes. Apparently, the patient has been suffering from sinus congestion, ear pain, intermittent dizziness and shortness of breath for the past 4 to 6 weeks. She saw ENT and had imaging done due to symptoms. 3 days ago, she suddenly developed intermittent substernal chest discomfort described as an ache. Episodes occurred while at rest according to the patient. She recalled an episode that woke her up from sleep that lasted less than 10 minutes and another episode that occurred while sitting in a chair that lasted less than 10 minutes. Apparently, yesterday morning, she was having increased frequency of episodes, thus she called her daughter, Ernestine, who took her to her primary provider's office, Erwin James NP, to be evaluated. At that time, she had an updated ECG, which I requested and apparently was told that she was suffering from anxiety. Apparently, she went home and around 10 p.m., she developed another episode of substernal chest pain radiating to the left side of her chest into her left shoulder and left arm that was constant and ongoing. This started around 10 p.m. at nighttime. Apparently, she called her daughter and she presented to [facility] around 0600. While being evaluated in the emergency room, ECG was obtained, which revealed anterolateral ST-segment elevation consistent with STEMI. Dr. Pike was called in to evaluate the patient and took her urgently to the construction craft laborer due to anterolateral STEMI. The patient was given aspirin 324 mg. She was loaded with Brilinta in the construction craft laborer and underwent percutaneous coronary intervention to mid LAD. She has not had recurrent symptoms since cardiac catheterization. Currently offers no other complaints. Denies syncope, palpitations, recent illness, or infection. PAST MEDICAL HISTORY: Listed includes: 1. Mitral valve prolapse with mitral insufficiency that resulted in mitral valve replacement in 2008. 2. Diabetes. 3. Historically, right bundle-branch block during 2018 echocardiogram. 4. [id number] tricuspid regurgitation. PAST SURGICAL HISTORY: Listed includes: 1. #29 mosaic bioprosthetic valve in 2008. 2. Cardiac catheterization in 2008. 3. Appendectomy. 4. in 1968. HOME MEDICATIONS: According to the patient include glipizide. ALLERGIES: Listed include: 1. DOXYCYCLINE, unknown reaction. 2. PENICILLIN, which caused hives. FAMILY HISTORY: Her sister apparently suffered from a myocardial infarction in her 50s. Otherwise, noncontributory. SOCIAL HISTORY: The patient lives at home alone. 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 She has never used tobacco products. Denies alcohol use or drug use. She has 5 cats. REVIEW OF SYSTEMS: All systems have been reviewed and otherwise negative except as above mentioned in the HPI. PHYSICAL EXAMINATION GENERAL: The patient was evaluated post cardiac cath in the construction craft laborer. She was slightly confused from sedative drugs that were administered, although she was cooperative and alert and oriented x3, in no apparent distress. HEENT: Head is atraumatic, normocephalic. Oral mucosa is moist. Tongue is midline. NECK: Supple. Trachea midline. No JVD. No carotid bruits. LUNGS: Auscultated anteriorly. No evidence of adventitious breath sounds. CARDIAC: Normal S1, S2. Regular rate and rhythm. Positive mitral diastolic murmur 2/5. No gallop or rub. /GI: Abdomen is soft, nontender, nondistended. EXTREMITIES: No pedal edema, no clubbing, no cyanosis. PERIPHERAL VASCULAR: 2+ brachial and dorsalis pedis pulses palpated bilaterally and symmetrically. SKIN: Intact. The patient is status post cath. DIAGNOSTIC STUDIES/LAB DATA: Blood work reviewed. White count 10.2, hemoglobin 14, hematocrit 42, platelets 184. Sodium 140, potassium 3.8, chloride 105, carbon dioxide 27, BUN 22, creatinine 0.75, glucose 206. Troponin #1 of 1.53. LDL 173. INR 1.03. ECG from 02/18/19 at 0612 reviewed. Sinus tachycardia, rate [address]-segment elevation, underlying right bundle-branch block. ASSESSMENT AND PLAN: 1. Anterolateral ST-elevation myocardial infarction, status post drug-eluting stent placement to mid LAD with Dr. Pike. LV gram showed severe LV dysfunction during cath. The patient presented late to [facility] given an onset of symptoms was at 10 p.m. and she did not arrive until 6 a.m. She is on aspirin, Brilinta, Coreg, and high-intensity statin therapy. We will cycle isoenzymes, update echocardiogram prior to discharge. If LVEF is still severely reduced, we will consider LifeVest. We will follow closely. 2. Newly diagnosed coronary artery disease, on aspirin, statin, and beta blockade therapy. 3. History of hyperlipidemia. LDL 173. Goal is less than 70. High-intensity statin therapy was initiated. 4. History of type 2 diabetes, historically on glipizide. Suggest the patient follow up with primary physician to consider SGLT2 inhibitor given newly found SHF 5. Disposition: Pending course. The patient is full code. She is admitted to the ICU post intervention to mid LAD due to anterolateral ST-elevation myocardial infarction. We will follow closely. Dr. Gill Pike has personally seen and examined the patient and agrees with the above assessment and plan. CANDIE SALDANA NP [id number]/[facility] #: [id number] I agree with above assessment and plan. HARVEY
--- NOTE | 2019-02-18 13:37 | CATH ---
CC: Erwin James NP; Dr. Gill Pike* CATH REPORT: DATE OF PROCEDURE: 02/18/19 - Inpatient, room OVC34-32 PRIMARY CARE PHYSICIAN: Erwin James NP. PROCEDURES: Right radial artery access with ultrasound guidance, bilateral selective coronary cineangiography, left heart catheterization, left ventriculography; stent placement to LAD, 2.75 x 16 Synergy drug-eluting stent, post dilated distal 2.75 NC, proximal end 3.0 NC. HISTORY: A 74-year-old woman with no obstructive coronary disease at cath in 2008 at which time she had significant mitral regurgitation resulting in mitral valve replacement. For the past 2 to 3 days, she has had recurring episodes of chest pain consistent with angina, class 4. Yesterday evening around 10 p.m., she had the onset of the same chest pressure with radiation through to her left scapula and her upper back with dyspnea, which persisted all night long, she presented to the ER this morning where EKG documented an anterior ST elevation infarct and the STEMI was called. At the time of evaluation, she was still having chest pain with ST elevation. PROCEDURE ACCESS: Right radial artery with ultrasound guidance, sheath 6-F Slender. DIAGNOSTIC CATHETERS: 5-F TIG 4. GUIDING CATHETERS: LAD 6-F VL 3.5, wire 14 BMW used to deploy 2.75 x 16 Synergy drug-eluting stent in the mid LAD, the distal end was post dilated to high pressure with a 2.75 NC balloon, the proximal end to high pressure with a 3.0 NC balloon. Left heart catheterization and LV gram were then performed. MEDICATIONS: 1. Subcu lidocaine. 2. IV Versed. 3. IV fentanyl. In the ER, she received a loading dose of Brilinta, heparin 60 units/kilo and aspirin 324 mg. laborer wood preserving plant medications: 1. Subcu lidocaine. 2. IV Versed. 3. IV fentanyl. 4. Nitroglycerin 300 mcg IA. 5. Verapamil 3 mg IA. 6. Heparin 2000 units IV. HEMODYNAMICS: Initial BP 157/95, post revascularization LV 134/3-23, no aortic valve gradient on pullback. ANGIOGRAPHY: Right radial artery: There is a bend in the mid radial, which was easily traversed with a Wholey wire. Left main: The left main is large, without stenosis. LAD: The LAD is proximally calcified, after the very small first diagonal and large first septal, there is a gradually tapering up to 80 to 90% stenosis with distal CARLOS-2 flow. Mid LAD has a moderate diagonal, has a 30% stenosis, distally the LAD ends past the apex. Circumflex: The circumflex is large with proximal ectasia, not dominant, supplies a large bifurcated marginal branch, there is a proximal very small first marginal. The circumflex has no significant stenosis. RCA: RCA is large, dominant, with moderate PDA and posterolateral, the RCA has no stenosis, has mild irregularity. After LAD stent deployment, high pressure postdilatation, there is CARLOS-3 flow, no residual stenosis, no dissection, no loss of branches. LV gram: There is no appreciable mitral regurgitation, the anterior and inferior base contract normally. The remainder of the ventricle is akinetic, estimated EF of 30, calculated 28%. CONCLUSION: 1. Single-vessel disease LAD with late presentation anterior wall and ST elevation infarct, excellent angiographic results with drug-eluting stent placement followed by high pressure postdilatation. 2. Elevated LVEDP. 3. Successful right radial artery access. 4. Impaired LV systolic function, hopefully at least in part due to stunning. 5. No mitral regurgitation, status post mitral valve replacement with a tissue valve. [id number]/[facility] #: [id number] [facility]
[2019-02-18 15:07] LABS: Creatine Kinase 572 U/L (10-223)
[2019-02-18 15:13] LABS: CKMB ng/mL 108.9 ng/mL (0.6-6.3)
[2019-02-18] MEDS: Atorvastatin* 80 MG TAB PO SCH (16:47)
[2019-02-18] MEDS: glipiZIDE TAB.XL* 5 MG PO SCH (20:23)
[2019-02-18] MEDS: Ticagrelor* 90 MG TAB PO SCH (20:26)
[2019-02-18 20:41] LABS: Creatine Kinase 597 U/L (10-223)
[2019-02-18 20:47] LABS: CKMB ng/mL 73.4 ng/mL (0.6-6.3)
[2019-02-18 20:48] LABS: Troponin I 11.32 ng/mL (<0.04)
[2019-02-18] MEDS ORDERED: glipiZIDE TAB.XL* 5 MG PO SCH (21:00)
[2019-02-19 06:23] LABS: BUN/Creatinine Ratio 21.9 (8-20); Calcium 9.1 mg/dL (8.6-10.3); EGFR African American 93.8 (>60); EGFR Non-African American 77.5 (>60); Potassium 4.1 mmol/L (3.5-5.0)
[2019-02-19] MEDS: Ticagrelor* 90 MG TAB PO SCH ×2 (08:41→21:14)
[2019-02-19] MEDS: Carvedilol TAB* 6.25 MG PO SCH ×2 (08:41→21:14)
[2019-02-19] MEDS: glipiZIDE TAB.XL* 5 MG PO SCH ×2 (08:41→17:39)
[2019-02-19] MEDS: Fluticasone NASAL SPRAY 50MCG* 16 gm SPRAY BTL BOTH NARES SCH (08:42)
[2019-02-19] MEDS: Aspirin 81 mg CHEW TAB* 81 MG TAB.CHEW PO SCH (08:42)
[2019-02-19] MEDS: Captopril TAB* 12.5 MG PO SCH ×3 (08:42→21:14)
[2019-02-19] MEDS ORDERED: Furosemide IV* 10 MG/ML 2 ML VIAL (20 MG) IV ONE (10:12)
--- NOTE | 2019-02-19 10:25 | PN ---
<Candie Saldana - Last Filed: 02/19/19 10:16> Subjective Date of Service: 02/19/19 - anterior STEMI, LV dysfunction Interval History: No events last night, patient up and ambulating to toilet with no complaints. She states she has not had recurrent chest pain since she presented yesterday morning. No c/o dizziness, palpitations or right radial access pain. Does report shortness of breath which is slightly worse since starting Brilinta. Medications Active Medications: Aspirin (Aspirin 81 Mg Chew Tab*) 81 mg PO DAILY [facility] Last Admin: 02/19/19 08:42 Dose: 81 mg Atorvastatin Calcium (Lipitor*) 80 mg PO 1700 [facility] Last Admin: 02/18/19 16:47 Dose: 80 mg Captopril (Capoten Tab*) 6.25 mg PO TID [facility] Last Admin: 02/19/19 08:42 Dose: 6.25 mg Carvedilol (Coreg Tab*) 6.25 mg PO BID [facility] Last Admin: 02/19/19 08:41 Dose: 6.25 mg Fluticasone Propionate (Flonase Nasal Cullen 50mcg*) 2 spray BOTH NARES DAILY [facility] Last Admin: 02/19/19 08:42 Dose: 2 spray Glipizide (Glucotrol Xl*) 5 mg PO BID WITH MEALS [facility] Last Admin: 02/19/19 08:41 Dose: 5 mg Nitroglycerin (Nitroglycerin Tab 0.4 Mg*) 0.4 mg SL Q5M PRN PRN Reason: ANGINA Ticagrelor (Brilinta*) 90 mg PO BID [facility] Last Admin: 02/19/19 08:41 Dose: 90 mg Objective Vital Signs: Temp Pulse Resp BP Pulse Ox 98.6 F 92 26 108/63 95 02/19/19 08:00 02/19/19 09:01 02/19/19 09:01 02/19/19 09:00 02/19/19 09:01 Oxygen Devices in Use Now: None Appearance: Lying in bed, A+Ox3 cooperative with exam. NAD Ears/Nose/Mouth/Throat: NL Teeth, Lips, Gums, Clear Oropharnyx, Mucous Membranes Moist Neck: NL Appearance and Movements; NL JVP, Trachea Midline Respiratory: Symmetrical Chest Expansion and Respiratory Effort, Clear to Auscultation Cardiovascular: - - Normal S1, S2, RRR, no murmur gallop or rub Extremities: No Edema, - - right radial access site is intact, strong bounding pulse. no hematoma. Neurological: Alert and Oriented x 3 Lines/Tubes/Other Access: Clean, Dry and Intact Peripheral IV Laboratory Results: 02/18/19 06:45 02/19/19 05:52 INR (Anticoag Therapy) 1.03 (0.82-1.09) 02/18/19 06:45 Total Bilirubin 0.50 mg/dL (0.2-1.0) 02/18/19 06:45 AST 30 U/L (13-39) 02/18/19 06:45 ALT 22 U/L (7-52) 02/18/19 06:45 Alkaline Phosphatase 66 U/L (34-104) 02/18/19 06:45 CK-MB (CK-2) 73.4 ng/mL (0.6-6.3) H 02/18/19 20:15 B-Natriuretic Peptide 122 pg/mL (<=100) H 02/18/19 06:45 Total Protein 6.6 g/dL (6.4-8.9) 02/18/19 06:45 Albumin 3.9 g/dL (3.2-5.2) 02/18/19 06:45 Globulin 2.7 g/dL (2-4) 02/18/19 06:45 Albumin/Globulin Ratio 1.4 (1-3) 02/18/19 06:45 Triglycerides 146 mg/dL 02/18/19 06:45 Cholesterol 234 mg/dL 02/18/19 06:45 LDL Cholesterol 159 mg/dL 02/18/19 06:45 HDL Cholesterol 46.0 mg/dL 02/18/19 06:45 02/18/19 02/18/19 02/18/19 06:45 08:51 14:28 Troponin I 1.53 H* 7.35 H* 11.30 H* 02/18/19 20:15 Troponin I 11.32 H* Laboratory Results - last 24 hr 02/18/19 02/18/19 02/19/19 14:28 20:15 05:52 Sodium 142 Potassium 4.1 Chloride 107 Carbon Dioxide 26 Anion Gap 9 BUN 16 Creatinine 0.73 Est GFR ( Amer) 93.8 Est GFR (Non-Af Amer) 77.5 BUN/Creatinine Ratio 21.9 H Glucose 210 H POC Glucose (mg/dL) Calcium 9.1 Total Creatine Kinase 572 H 597 H CK-MB (CK-2) 108.9 H 73.4 H Troponin I 11.30 H* 11.32 H* 02/19/19 08:31 Sodium Potassium Chloride Carbon Dioxide Anion Gap BUN Creatinine Est GFR ( Amer) Est GFR (Non-Af Amer) BUN/Creatinine Ratio Glucose POC Glucose (mg/dL) 268 H Calcium Total Creatine Kinase CK-MB (CK-2) Troponin I Diagnostic Imaging: [facility]; refer to dictated report. EKG Data: 02/19/2019; "Sinus rhythm rate 93; known RBBB. diffuse TW depression diffusely. Telemetry; Sinus rhythm rate 80-90's no VT Assessment/Plan #1 s/p Anterolateral STEMI; s/p 2.74m24dl JOSSELIN to mid LAD. LVEF 30%. Troponin has not peaked but is starting to plateau. Will trend one more isoenzyme. ECG consistent with recent infarct. Patient presented after 8 hours of onset of symptoms. will update echo on Saturday to assess LVEF if still < 35% will need lifevest. Will continue ASA 81/day, Brilinta 90mg BID. Given presentation was STEMI she will need uninterrupted DAPT x 12 months. Will continue Coreg 6.25mg Po BID and Lipitor 80QHS. Right radial access site is intact, no hematoma. #2 ICM; LVEF on LV gram as mentioned above 30%; tolerating Coreg 6.25mg Po BID and Captopril 6.25mg PO TID. Will do trial of IV Lasix 20mg due to c/o SOB. This could also be related to Brilinta. #3 h/o Type 2 DM on Glipizide therapy. MCC she would benefit from SLGT2 inhibitor given mortality reduction ( newly found CAD). She will need to follow up with primary provider to address this. #4 HLD; Now on Lipitor 80QHS. Goal LDL < 70. Will need FLP/LFT in 6 weeks time. #5 Disposition pending course. Patient full code. D/W Dr. Pike who agrees with plan of care. Attending: Gill Pike <Gill Pike - Last Filed: 02/19/19 11:56> Medications Active Medications: Aspirin (Aspirin 81 Mg Chew Tab*) 81 mg PO DAILY [facility] Last Admin: 02/19/19 08:42 Dose: 81 mg Atorvastatin Calcium (Lipitor*) 80 mg PO 1700 [facility] Last Admin: 02/18/19 16:47 Dose: 80 mg Captopril (Capoten Tab*) 6.25 mg PO TID [facility] Last Admin: 02/19/19 08:42 Dose: 6.25 mg Carvedilol (Coreg Tab*) 6.25 mg PO BID [facility] Last Admin: 02/19/19 08:41 Dose: 6.25 mg Fluticasone Propionate (Flonase Nasal Cullen 50mcg*) 2 spray BOTH NARES DAILY [facility] Last Admin: 02/19/19 08:42 Dose: 2 spray Glipizide (Glucotrol Xl*) 5 mg PO BID WITH MEALS [facility] Last Admin: 02/19/19 08:41 Dose: 5 mg Nitroglycerin (Nitroglycerin Tab 0.4 Mg*) 0.4 mg SL Q5M PRN PRN Reason: ANGINA Ticagrelor (Brilinta*) 90 mg PO BID [facility] Last Admin: 02/19/19 08:41 Dose: 90 mg Objective Vital Signs: Temp Pulse Resp BP Pulse Ox 98.6 F 96 25 107/71 96 02/19/19 08:00 02/19/19 10:01 02/19/19 11:00 02/19/19 11:00 02/19/19 10:01 Laboratory Results: 02/18/19 06:45 02/19/19 05:52 INR (Anticoag Therapy) 1.03 (0.82-1.09) 02/18/19 06:45 Total Bilirubin 0.50 mg/dL (0.2-1.0) 02/18/19 06:45 AST 30 U/L (13-39) 02/18/19 06:45 ALT 22 U/L (7-52) 02/18/19 06:45 Alkaline Phosphatase 66 U/L (34-104) 02/18/19 06:45 CK-MB (CK-2) 73.4 ng/mL (0.6-6.3) H 02/18/19 20:15 B-Natriuretic Peptide 122 pg/mL (<=100) H 02/18/19 06:45 Total Protein 6.6 g/dL (6.4-8.9) 02/18/19 06:45 Albumin 3.9 g/dL (3.2-5.2) 02/18/19 06:45 Globulin 2.7 g/dL (2-4) 02/18/19 06:45 Albumin/Globulin Ratio 1.4 (1-3) 02/18/19 06:45 Triglycerides 146 mg/dL 02/18/19 06:45 Cholesterol 234 mg/dL 02/18/19 06:45 LDL Cholesterol 159 mg/dL 02/18/19 06:45 HDL Cholesterol 46.0 mg/dL 02/18/19 06:45 02/18/19 02/18/19 02/18/19 06:45 08:51 14:28 Troponin I 1.53 H* 7.35 H* 11.30 H* 02/18/19 20:15 Troponin I 11.32 H* Assessment/Plan reviewed, pt seen/examined. Agree w assessment and plan, increase oob, titrate jyoti
[2019-02-19 12:10] LABS: Troponin I 7.22 ng/mL (<0.04)
[2019-02-19] MEDS: Atorvastatin* 80 MG TAB PO SCH (17:39)
[2019-02-20] MEDS: glipiZIDE TAB.XL* 5 MG PO SCH ×2 (08:21→17:13)
[2019-02-20] MEDS: Fluticasone NASAL SPRAY 50MCG* 16 gm SPRAY BTL BOTH NARES SCH (08:21)
[2019-02-20] MEDS: Aspirin 81 mg CHEW TAB* 81 MG TAB.CHEW PO SCH (08:21)
[2019-02-20] MEDS: Carvedilol TAB* 6.25 MG PO SCH ×2 (08:21→21:38)
[2019-02-20] MEDS: Captopril TAB* 12.5 MG PO SCH ×3 (08:21→21:39)
[2019-02-20] MEDS: Ticagrelor* 90 MG TAB PO SCH ×2 (08:21→21:39)
--- NOTE | 2019-02-20 08:51 | PN ---
<PepperbettyCandie - Last Filed: 02/20/19 09:11> Subjective Date of Service: 02/20/19 - anterolateral STEMI, SHF Interval History: No events last night, patient up and sitting in chair she states if she changed her position suddenly she would get dizzy but states at this time she is not. No c/o recurrent chest pain since presentation. States breathing has improved since yesterday and reports increased urinary output after IV Lasix given yesterday. Patient offers no other complaints at this time. Medications Active Medications: Aspirin (Aspirin 81 Mg Chew Tab*) 81 mg PO DAILY [facility] Last Admin: 02/20/19 08:21 Dose: 81 mg Atorvastatin Calcium (Lipitor*) 80 mg PO 1700 [facility] Last Admin: 02/19/19 17:39 Dose: 80 mg Captopril (Capoten Tab*) 12.5 mg PO TID [facility] Last Admin: 02/20/19 08:21 Dose: 12.5 mg Carvedilol (Coreg Tab*) 6.25 mg PO BID [facility] Last Admin: 02/20/19 08:21 Dose: 6.25 mg Fluticasone Propionate (Flonase Nasal [place] 50mcg*) 2 spray BOTH NARES DAILY [facility] Last Admin: 02/20/19 08:21 Dose: 2 spray Glipizide (Glucotrol Xl*) 5 mg PO BID WITH MEALS [facility] Last Admin: 02/20/19 08:21 Dose: 5 mg Nitroglycerin (Nitroglycerin Tab 0.4 Mg*) 0.4 mg SL Q5M PRN PRN Reason: ANGINA Ticagrelor (Brilinta*) 90 mg PO BID [facility] Last Admin: 02/20/19 08:21 Dose: 90 mg Objective Vital Signs: Temp Pulse Resp BP Pulse Ox 99.3 F 81 21 105/65 94 02/20/19 07:15 02/20/19 07:01 02/20/19 07:01 02/20/19 07:00 02/20/19 07:01 Oxygen Devices in Use Now: None Appearance: Sitting in chair, offers no complaints at this time. A+OX3 is hard of hearing. Eyes: No Scleral Icterus, PERRLA Ears/Nose/Mouth/Throat: NL Teeth, Lips, Gums, Clear Oropharnyx, Mucous Membranes Moist Neck: NL Appearance and Movements; NL JVP, Trachea Midline Respiratory: Symmetrical Chest Expansion and Respiratory Effort, Clear to Auscultation Cardiovascular: - - Normal S1, S2, RRR, no murmur gallop or rub Extremities: No Edema, - - right radial access site is intact, strong bounding pulse. no hematoma. Neurological: Alert and Oriented x 3 Lines/Tubes/Other Access: Clean, Dry and Intact Peripheral IV Laboratory Results: 02/18/19 06:45 02/19/19 05:52 INR (Anticoag Therapy) 1.03 (0.82-1.09) 02/18/19 06:45 Total Bilirubin 0.50 mg/dL (0.2-1.0) 02/18/19 06:45 AST 30 U/L (13-39) 02/18/19 06:45 ALT 22 U/L (7-52) 02/18/19 06:45 Alkaline Phosphatase 66 U/L (34-104) 02/18/19 06:45 CK-MB (CK-2) 73.4 ng/mL (0.6-6.3) H 02/18/19 20:15 B-Natriuretic Peptide 122 pg/mL (<=100) H 02/18/19 06:45 Total Protein 6.6 g/dL (6.4-8.9) 02/18/19 06:45 Albumin 3.9 g/dL (3.2-5.2) 02/18/19 06:45 Globulin 2.7 g/dL (2-4) 02/18/19 06:45 Albumin/Globulin Ratio 1.4 (1-3) 02/18/19 06:45 Triglycerides 146 mg/dL 02/18/19 06:45 Cholesterol 234 mg/dL 02/18/19 06:45 LDL Cholesterol 159 mg/dL 02/18/19 06:45 HDL Cholesterol 46.0 mg/dL 02/18/19 06:45 02/18/19 02/18/19 02/18/19 06:45 08:51 14:28 Troponin I 1.53 H* 7.35 H* 11.30 H* 02/18/19 02/19/19 20:15 11:25 Troponin I 11.32 H* 7.22 H* Laboratory Results - last 24 hr 02/18/19 02/19/19 02/19/19 20:15 11:25 11:25 POC Glucose (mg/dL) 233 H Hemoglobin A1c 8.1 H Troponin I 7.22 H* 02/19/19 02/19/19 02/19/19 12:15 17:36 23:01 POC Glucose (mg/dL) 284 H 266 H 107 H Hemoglobin A1c Troponin I 02/20/19 08:27 POC Glucose (mg/dL) 219 H Hemoglobin A1c Troponin I Diagnostic Imaging: Cardiac Catheterization Report [facility]ANE [facility] [id number] 02/18/19 6. Heparin 2000 units IV. HEMODYNAMICS: Initial BP 157/95, post revascularization LV 134/3-23, no aortic valve gradient on pullback. ANGIOGRAPHY: Right radial artery: There is a bend in the mid radial, which was easily traversed with a Wholey wire. Left main: The left main is large, without stenosis. LAD: The LAD is proximally calcified, after the very small first diagonal and large first septal, there is a gradually tapering up to 80 to 90% stenosis with distal CARLOS-2 flow. Mid LAD has a moderate diagonal, has a 30% stenosis, distally the LAD ends past the apex. Circumflex: The circumflex is large with proximal ectasia, not dominant, supplies a large bifurcated marginal branch, there is a proximal very small first marginal. The circumflex has no significant stenosis. RCA: RCA is large, dominant, with moderate PDA and posterolateral, the RCA has no stenosis, has mild irregularity. After LAD stent deployment, high pressure postdilatation, there is CARLOS-3 flow, no residual stenosis, no dissection, no loss of branches. LV gram: There is no appreciable mitral regurgitation, the anterior and inferior base contract normally. The remainder of the ventricle is akinetic, estimated EF of 30, calculated 28%. CONCLUSION: 1. Single-vessel disease LAD with late presentation anterior wall and ST elevation infarct, excellent angiographic results with drug-eluting stent placement followed by high pressure postdilatation. 2. Elevated LVEDP. 3. Successful right radial artery access. 4. Impaired LV systolic function, hopefully at least in part due to stunning. 5. No mitral regurgitation, status post mitral valve replacement with a tissue valve. [id number]/[facility] #: [id number] <Electronically signed by Gill Pike MD> 02/18/19 1513 Gill Pike MD Dictated Date/Time: 02/18/19 1030 Transcribed Date/Time 02/18/19 1254 Copy to: CC: Gill Pike MD; Erwin James NP This report is only to be considered final once signed by the Provider(s) as displayed in the "<Electronically Signed by >" field (s). Absence of a signature indicates the report is in a draft status and still needs to be finalized. In the event this document was created by someone other than the signing Provider, the individual initiating the document will be listed in the "Entered by:" or "Dictated by:" ledezma. 2 of 2 EKG Data: 02/20/2019; Sinus rhythm rate 89; known RBBB. TW depression diffusely. There is minimal ST elevation in V2-4 however it is comparable to prior ECG. Telemetry; Sinus rhythm rate 80-90's no VT Assessment/Plan #1 Late presenting anterior STEMI s/p JOSSELIN/mid LAD 02/18/2019. No recurrent c/o chest pain since presentation. Troponin peaked on 02/18/2019 at 11.32. LV gram during C revealed LVEF 30%. She is on ASA 81/day with Brilinta 90mg PO BID and will need uninterrupted DAPT x12 months. She is to continue Coreg and statin therapy. Clinically doing well. Right radial access site is intact, no hematoma. Patient ambulating halls with no difficulty will transfer to telemetry. #2 ICM; LVEF 30%. Patient responded well to 20mg IV Lasix x1. States breathing effort has improved. Will continue Coreg 6.25mg Po BID, Captopril 12.5mg PO TID. SBP 100-105 on higher ACEI dose thus will not uptitrate. Will order Lifevest. #3 HLD; Goal LDL < 70 now on high intensity statin therapy. Will need repeat labs in 6 weeks. #4 h/o DM; HgbA1C 8.1. On Glipizide therapy. She will need to follow up with PCP to address glucose management and for consideration SGLT2 Inhibitor given mortality reduction( CAD). Unfortunately, Jardiance is not on formulary here at [facility] [place] [facility]. #5 Disposition pending course patient is a full code. Will transfer to telemetry. Attending: Gill Pike <Gill Pike - Last Filed: 02/25/19 11:41> Objective Vital Signs: Temp Pulse Resp BP Pulse Ox 97.4 F 73 14 96/53 95 02/23/19 15:39 02/23/19 15:39 02/23/19 15:39 02/23/19 15:39 02/23/19 15:39 Laboratory Results: 02/18/19 06:45 02/22/19 06:18 INR (Anticoag Therapy) 1.03 (0.82-1.09) 02/18/19 06:45 Total Bilirubin 0.50 mg/dL (0.2-1.0) 02/18/19 06:45 AST 30 U/L (13-39) 02/18/19 06:45 ALT 22 U/L (7-52) 02/18/19 06:45 Alkaline Phosphatase 66 U/L (34-104) 02/18/19 06:45 CK-MB (CK-2) 73.4 ng/mL (0.6-6.3) H 02/18/19 20:15 B-Natriuretic Peptide 373 pg/mL (<=100) H 02/22/19 06:18 Total Protein 6.6 g/dL (6.4-8.9) 02/18/19 06:45 Albumin 3.9 g/dL (3.2-5.2) 02/18/19 06:45 Globulin 2.7 g/dL (2-4) 02/18/19 06:45 Albumin/Globulin Ratio 1.4 (1-3) 02/18/19 06:45 Triglycerides 146 mg/dL 02/18/19 06:45 Cholesterol 234 mg/dL 02/18/19 06:45 LDL Cholesterol 159 mg/dL 02/18/19 06:45 HDL Cholesterol 46.0 mg/dL 02/18/19 06:45 02/18/19 02/18/19 02/18/19 06:45 08:51 14:28 Troponin I 1.53 H* 7.35 H* 11.30 H* 02/18/19 02/19/19 02/21/19 20:15 11:25 02:55 Troponin I 11.32 H* 7.22 H* 2.69 H* 02/21/19 02/21/19 02/22/19 06:19 08:37 16:55 Troponin I 2.35 H* 2.24 H* 0.69 H* 02/22/19 19:05 Troponin I 0.96 H* Assessment/Plan agree w above assesment and plan. stable p STEMI w CHF. Titrate CHF meds.
[2019-02-20] MEDS ORDERED: Lisinopril TAB* 5 MG PO SCH ×2 (09:00)
[2019-02-20] MEDS: Acetaminophen TAB* 325 MG PO PRN ×2 (09:47→23:54)
[2019-02-20] MEDS ORDERED: Dextrose 50% VIAL 50 ml IV PUSH PRN (15:28)
[2019-02-20] MEDS: Atorvastatin* 80 MG TAB PO SCH (17:13)
[2019-02-20] MEDS: Insulin LISPRO* 1 UNITS UNIT SUBCUT SCH ×2 (17:16→21:38)
--- NOTE | 2019-02-20 21:13 | CONS ---
CONSULTATION REPORT: DATE OF CONSULT: 02/20/19 REASON FOR CONSULT: Diabetic management. REQUESTING PROVIDER: COTY Saldana ATTENDING PROVIDER: Dr. Workman. PRIMARY CARE PHYSICIAN: Erwin James [facility] PROXY: Yvrose Nuñez HISTORY OF PRESENT ILLNESS: This is a 74-year-old female with a past medical history significant for diabetes and mitral valve replacement, who presented to the ED on 02/18/19 with complaints of 2-day history of chest pain. EKG revealed ST elevations in V2 and V4, determined to have had a STEMI. The patient underwent cardiac catheterization of mid LAD. No further chest pain or shortness of breath since procedure. Hospitalists were consulted for medical co -management of diabetes. The patient is on glipizide 5 mg p.o. daily at home, though we are talking with both family members and the patient, she takes her medications only when she feels her sugars are high, though claims to check her blood sugars twice a day stating that sugars in the morning are typically in the low 100s. A1c was drawn on 02/19/19 revealed A1c of 8.1%. Nutritional consult placed. The patient denies any headaches, vision changes, chest pain, shortness of breath. Story is not consistent throughout conversation. Beginning part of conversation, she said she would eat ice cream every now and then, family members stated that she would eat it every night, then later on in conversation she would state that she would eat no sweets. PAST MEDICAL HISTORY: 1. Mitral valve prolapse, resulting in replacement in 2008. 2. Kidney stones. 3. Diabetes type 2. 4. Right bundle-branch block. 5. [id number]-[id number] tricuspid regurgitation. 6. Cataracts in bilateral eyes. PAST SURGICAL HISTORY: Includes: 1. Cardiac catheterization in 2008, which ultimately resulted in MRSA in the groin incision. 2. Appendectomy. 3. in 1968. 4. Cataract surgery in both eyes. 5. She has had left wrist ORIF. ALLERGIES: DOXYCYCLINE and PENICILLIN. FAMILY HISTORY: Sister had diabetes and MO, which she from in her 50s. Mother had scleroderma. Father significant for lung cancer. SOCIAL HISTORY: She lives at home alone. Has been unemployed since 2008 after a left distal radius fracture. 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 Denies smoking, drinking alcohol, or other recreational drugs. REVIEW OF SYSTEMS: Performed a 12 system review, which revealed hard of hearing in bilateral ears. Reports feeling short of breath upon exertion otherwise benign. PHYSICAL EXAM: Constitutional: The patient appears pale, sitting up in bed, awake, and conversive. Eyes: Conjunctivae pink. PERRLA. HEENT: Normocephalic and atraumatic. Oropharynx is clear. Mucous membranes are moist. Respiratory: Lung sounds are clear throughout bilaterally on room air. Cardio: S1, S2 present. Heart rate regular. No gallops, murmurs, rubs appreciated. GI: Abdomen is soft, nontender. Positive bowel sounds x4. : Deferred. Musculoskeletal: Positive pedal pulses. Cap refill less than 3 seconds. Able to move all extremities. Skin: Dressing to right wrist clean, dry, and intact. No other open areas appreciated. Neurological: Alert and oriented x4. No numbness or tingling noted. No focal deficits appreciated. Psychiatric: The patient appears to have limited insight though oriented to time, place, and person. DIAGNOSTIC STUDIES/LAB DATA: Sugars have been ranging between 107 to 284. POC activated clotting time is 263. INR 1.03. EKG last performed on 02/20/19 revealed sinus rhythm with abnormal T, minimal ST elevation. Chest x-ray on 10/03 showed no acute cardiomegaly process. IMPRESSION: This is a 74-year-old female with past medical history significant for diabetes, mitral valve replacement, who was presented to the ER on 02/18/19 with a STEMI. Hospitalists were consulted for medical co-management of diabetes. PLAN: 1. Anterolateral ST elevation, myocardial infarction, status post drug-eluting stent placement to mid LAD with Dr. Pike. Please continue aspirin, Brilinta, Coreg, and Lipitor. If the LVEF is still severely reduced, cardiology is considering a LifeVest. 2. Newly diagnosed coronary artery disease. Please continue aspirin, statin, and carvedilol. 3. History of hyperlipidemia, goal of less than 70. Continue Lipitor. 4. History of type 2 diabetes. Continue glipizide in hospital blood glucose monitoring a.c. and h.s. Please continue sliding scale insulin. Plan is to add metformin 500 mg p.o. b.i.d. to home regime as well as 5 mg of glipizide. Nutrition consult ordered. 5. Disposition. Pending course of treatment. The patient is full code. Thank you for allowing us to participate in the care of this patient. We will follow during this admission. [id number]/[facility] #: [id number] HARVEY
[2019-02-21 03:35] LABS: Troponin I 2.69 ng/mL (<0.04)
[2019-02-21 06:52] LABS: BUN/Creatinine Ratio 28.4 (8-20); Calcium 8.9 mg/dL (8.6-10.3); EGFR African American 92.3 (>60); EGFR Non-African American 76.3 (>60); Potassium 3.8 mmol/L (3.5-5.0)
[2019-02-21 07:11] LABS: Troponin I 2.35 ng/mL (<0.04)
[2019-02-21] MEDS: Insulin LISPRO* 1 UNITS UNIT SUBCUT SCH ×7 (08:17→21:56)
[2019-02-21] MEDS: Aspirin 81 mg CHEW TAB* 81 MG TAB.CHEW PO SCH (08:18)
[2019-02-21] MEDS: glipiZIDE TAB.XL* 5 MG PO SCH ×2 (08:18→17:30)
[2019-02-21] MEDS: Fluticasone NASAL SPRAY 50MCG* 16 gm SPRAY BTL BOTH NARES SCH (08:19)
[2019-02-21] MEDS: Ticagrelor* 90 MG TAB PO SCH ×2 (08:20→21:55)
[2019-02-21] MEDS: Captopril TAB* 12.5 MG PO SCH ×3 (08:27→21:55)
[2019-02-21] MEDS: Carvedilol TAB* 6.25 MG PO SCH ×2 (08:27→21:55)
[2019-02-21 09:08] LABS: Troponin I 2.24 ng/mL (<0.04)
[2019-02-21] MEDS: Spironolactone TAB* 25 MG PO SCH (13:41)
[2019-02-21] MEDS: Atorvastatin* 80 MG TAB PO SCH (17:30)
--- NOTE | 2019-02-21 18:12 | PN ---
Subjective Date of Service: 02/21/19 Interval History: Patient still has significant shortness of breath with activity, none at rest. Patient has intermittent orthopnea, but this is sporadic. Patient denies LE swelling. Patient denies F/C, N/V, Bleeding, abdominal pain, or other pain. Family History: Unchanged from Admission Social History: Unchanged from Admission Past Medical History: Unchanged from Admission Objective Active Medications: Acetaminophen (Tylenol Tab*) 650 mg PO Q6H PRN PRN Reason: PAIN - MILD Last Admin: 02/20/19 23:54 Dose: 650 mg Aspirin (Aspirin 81 Mg Chew Tab*) 81 mg PO DAILY [facility] Last Admin: 02/21/19 08:18 Dose: 81 mg Atorvastatin Calcium (Lipitor*) 80 mg PO 1700 [facility] Last Admin: 02/21/19 17:30 Dose: 80 mg Captopril (Capoten Tab*) 12.5 mg PO TID [facility] Stop: 02/21/19 23:59 Last Admin: 02/21/19 14:14 Dose: 12.5 mg Carvedilol (Coreg Tab*) 6.25 mg PO DAILY [facility] Last Admin: 02/21/19 08:27 Dose: 6.25 mg Carvedilol (Coreg Tab*) 12.5 mg PO 2100 [facility] Last Admin: 02/20/19 21:38 Dose: 12.5 mg Dextrose (Dextrose 50% Vial 50 Ml*) 25 ml IV PUSH .FOR FS < 60 - SS PRN PRN Reason: FS < 60 Fluticasone Propionate (Flonase Nasal [place] 50mcg*) 2 spray BOTH NARES DAILY [facility] Last Admin: 02/21/19 08:19 Dose: 2 spray Glipizide (Glucotrol Xl*) 5 mg PO BID WITH MEALS [facility] Last Admin: 02/21/19 17:30 Dose: 5 mg Insulin Human Lispro (Humalog*) 0 units SUBCUT ACHS [facility]; Protocol Last Admin: 02/21/19 17:28 Dose: Not Given Insulin Human Lispro (Humalog*) 0 units SUBCUT AC [facility]; Protocol Last Admin: 02/21/19 13:43 Dose: 3 units Lisinopril (Prinivil Tab*) 10 mg PO DAILY [facility] Metformin HCl (Glucophage*) 500 mg PO DAILY [facility] Nitroglycerin (Nitroglycerin Tab 0.4 Mg*) 0.4 mg SL Q5M PRN PRN Reason: ANGINA Spironolactone (Aldactone Tab*) 25 mg PO DAILY [facility] Last Admin: 02/21/19 13:41 Dose: 25 mg Ticagrelor (Brilinta*) 90 mg PO BID [facility] Last Admin: 02/21/19 08:20 Dose: 90 mg Vital Signs - 8 hr 02/21/19 02/21/19 13:30 17:00 Temperature 97.4 F 97.8 F Pulse Rate 89 84 Respiratory 16 18 Rate Blood Pressure 110/53 115/60 (mmHg) O2 Sat by Pulse 98 97 Oximetry Oxygen Devices in Use Now: None Appearance: Patient is a 74yo female who appears stated age and is sitting in the bed in [facility]. Eyes: No Scleral Icterus, PERRLA Ears/Nose/Mouth/Throat: NL Teeth, Lips, Gums, Clear Oropharnyx, Mucous Membranes Moist Neck: NL Appearance and Movements; NL JVP, Trachea Midline Respiratory: Symmetrical Chest Expansion and Respiratory Effort, Clear to Auscultation Cardiovascular: NL Sounds; No Murmurs; No JVD, RRR, No Edema Abdominal: NL Sounds; No Tenderness; No Distention, No Hepatosplenomegaly Lymphatic: No Cervical Adenopathy Extremities: No Edema, No Clubbing, Cyanosis Skin: No Rash or Ulcers, No Nodules or Sclerosis Neurological: Alert and Oriented x 3, NL Sensation, NL Muscle Strength and Tone , - - CN II-XII Result Diagrams: 02/18/19 06:45 02/21/19 06:19 Microbiology and Other Data: Microbiology 02/18/19 08:51 Nasal Screen MRSA (PCR) - Final Nasal Mrsa Not Detected Assess/Plan/Problems-Billing Assessment: Patient is a 74yo female with a PMH for recent STEMI, DM II, HTN, here for STEMI aftercare and we are consulted for blood glucose control. - Patient Problems (1) STEMI (ST elevation myocardial infarction) Current Visit: Yes Status: Acute Code(s): I21.3 - ST ELEVATION (STEMI) MYOCARDIAL INFARCTION OF [facility] SITE SNOMED Code(s): 76410989 Comment: - S/P Cath and JOSSELIN placement - Aspirin and Brilinta - Slight SOB from Brilinta - Statin - Management Per Cardiology. (2) Type II diabetes mellitus Current Visit: No Status: Acute Comment: - Continue Glipizide, discussed with patient that this is a suboptimal medication given cardiac risk. - Started Metformin per cardiology - Recommend SGLT-2 at discharge. (3) Hyperlipidemia Current Visit: Yes Status: Acute Code(s): E78.5 - HYPERLIPIDEMIA, UNSPECIFIED SNOMED Code(s): 93685650 Comment: - Statin (4) Systolic heart failure Current Visit: Yes Status: Acute Code(s): I50.20 - UNSPECIFIED SYSTOLIC ( CONGESTIVE) HEART FAILURE SNOMED Code(s): 477257945 Comment: - New onset with STEMI - Started BB, ACEI, Spironolactone - BP Tolerating well. - Mildly symptomatic (5) DVT prophylaxis Current Visit: No Status: Acute Code(s): YXO1623 - SNOMED Code(s): 604671063 Comment: -SQ heparin (6) Full code status Current Visit: No Status: Acute Code(s): Z78.9 - OTHER SPECIFIED HEALTH STATUS SNOMED Code(s): 753582380 Status and Disposition: Disposition per Cardiology, Thank you for this consult, we will continue to follow along.
[2019-02-22] MEDS ORDERED: NS 0.9% 1000 ML** 1,000 ML IV ONE (00:45)
[2019-02-22] MEDS: Ondansetron INJ* 2 MG/ML VIAL IV PRN (00:58)
[2019-02-22 06:58] LABS: BUN/Creatinine Ratio 24.7 (8-20); Calcium 8.5 mg/dL (8.6-10.3); EGFR African American 93.8 (>60); EGFR Non-African American 77.5 (>60); Potassium 4.5 mmol/L (3.5-5.0)
[2019-02-22] MEDS ORDERED: Lisinopril TAB* 10 MG PO SCH (09:00)
[2019-02-22] MEDS: Spironolactone TAB* 25 MG PO SCH (10:01)
[2019-02-22] MEDS: Carvedilol TAB* 6.25 MG PO SCH ×2 (10:02→20:57)
[2019-02-22] MEDS: glipiZIDE TAB.XL* 5 MG PO SCH ×2 (10:02→18:04)
[2019-02-22] MEDS: Ticagrelor* 90 MG TAB PO SCH ×2 (10:02→20:57)
[2019-02-22] MEDS: Aspirin 81 mg CHEW TAB* 81 MG TAB.CHEW PO SCH (10:03)
[2019-02-22] MEDS: Fluticasone NASAL SPRAY 50MCG* 16 gm SPRAY BTL BOTH NARES SCH (10:03)
[2019-02-22] MEDS: Insulin LISPRO* 1 UNITS UNIT SUBCUT SCH ×7 (10:03→20:58)
--- NOTE | 2019-02-22 10:42 | ECHO ---
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 History: Right bundle branch block. Risk factors: Diabetes mellitus. Labs, prior tests, procedures, and surgery: Catheterization. There was a stenosis which was treated with a stent. Valve surgery (2008). Mitral valve replacement with a 29 mmbioprosthetic valve. Conclusions Summary: - Left ventricle: The cavity size is normal. There is mild concentric hypertrophy. Systolic function is moderately to severely reduced by visual assessment. The estimated ejection fraction is 30-35%. Hypokinesis of the mid-apicalanterior and inferolateral myocardium. Akinesis of the apical anterior and apical inferior myocardium. Akinesis of the mid-apicalanteroseptal myocardium. Hypokinesis of the apicalanterolateral myocardium. - Normal cardiac chamber sizes. - Mitral valve: There is a mitral bioprosthetic valve replacment seen which appears to be normally functioning. - Tricuspid valve: There is mild-moderate regurgitation. - Pulmonary arteries: Systolic pressure is mildly increased. - Since the prior echocardiogram completed 05/06/18, pertinent change is prior left ventricular systolic function reported normal. Study data: Transthoracic echocardiogram. Procedure: Transthoracic echocardiography was performed. Image quality was fair. Complete 2D, spectral Doppler, and color flow Doppler. Location: Bedside. Patient status: Inpatient. Patient room number: 449-2. Rhythm: Normal sinus rhythm. Findings Left ventricle: The cavity size is normal. There is mild concentric hypertrophy. Systolic function is moderately to severely reduced by visual assessment. The estimated ejection fraction is 30-35%. Regional wall motion abnormalities: Hypokinesis of the mid-apicalanterior and inferolateral myocardium. Akinesis of the apical anterior and apical inferior myocardium. Akinesis of the mid-apicalanteroseptal myocardium. Hypokinesis of the apicalanterolateral myocardium. Left ventricular diastolic function parameters are indeterminate. Right ventricle: The cavity size is normal. Systolic function is normal. Systolic pressure is mildly increased. Left atrium: The atrium is normal in size. Right atrium: The atrium is normal in size. Mitral valve: Well visualized. There is a mitral bioprosthetic valve replacment seen which appears to be normally functioning. There is no evidence of stenosis. There is no significant regurgitation. Aortic valve: The valve is trileaflet. The leaflets are mildly thickened. There is no evidence of stenosis. There is no significant regurgitation. Tricuspid valve: The leaflets are normal thickness. There is mild-moderate regurgitation. Pulmonic valve: The leaflets are normal thickness. There is no evidence of stenosis. There is trace regurgitation. Aorta: Ascending aorta: The ascending aorta is appears normal. The aortic root appears normal. The aortic arch appears normal. Pericardium: There is no significant pericardial effusion. Pulmonary arteries: The main pulmonary artery is normal-sized. Systolic pressure is mildly increased. Systemic veins: Inferior vena cava: The vessel is normal in size. There is (< 50%) respiratory change in the IVC dimension. Measurements Left ventricle Value Ref Aortic valve Value Ref CEDRIC, LAX 4.1 cm 3.8 - 5.2 Wes diam, ED 1.8 cm ----- ESD, LAX (H) 3.7 cm 2.2 - 3.5 Peak v, S 1.18 m/sec ----- FS, LAX (L) 11 % 27 - 45 VTI, S 22.5 cm ----- PW, ED, LAX (H) 1.1 cm 0.6 - 0.9 Mean grad, S 3.0 mm Hg ----- FS (L) 11 % 27 - 45 Peak grad, S 6.0 mm Hg ----- PW, ED (H) 1.1 cm 0.6 - 0.9 LVOT/AV, VTI ratio 0.71 ----- E', lat wes, TDI (L) 3.8 cm/sec >=10.0 MARSHA, VTI 2.23 cm^2 --- -- E/e', lat wes, 45 MARSHA, Vmax 2.17 cm^2 ----- TDI E', med wes, TDI (L) 4.0 cm/sec >=7.0 Mitral valve Value Ref E/e', med wes, 43 Peak E 1.71 m/sec ----- TDI Peak A 0.68 m/sec ----- E', avg, TDI 3.9 cm/sec Decel time 187 ms ----- E/e', avg, TDI (H) 44 <=14 PHT 65 ms --- -- Mean grad, D 4.0 mm Hg ----- LVOT Value Ref Peak grad, D 10.0 mm Hg ----- Diam, S 2.00 cm Peak E/A ratio 2.5 ----- Area 3.1 cm^2 MVA, PHT 2.8 cm^2 ----- Peak jose, S 0.81 m/sec VTI, S 16.0 cm Pulmonic valve Value Ref Mean grad, S 2 mm Hg Peak v, S 0.79 m/sec ----- SV 51 ml Peak grad, S 3.0 mm Hg ----- SV/bsa 31 ml/m^2 Tricuspid valve Value Ref Ventricular septum Value Ref TR peak v 2.7 m/sec <=2.8 IVS, ED (H) 1.2 cm 0.6 - 0.9 Peak RV-RA grad, S 29 mm Hg ----- Right ventricle Value Ref Aortic root Value Ref CEDRIC, LAX 2.7 cm Root diam 3.2 cm <3.9 CEDRIC minor ax, A4C (H) 3.9 cm 1.9 - 3.5 mid Ascending aorta Value Ref Pressure, S 37 mm Hg AAo AP diam, S 2.8 cm ----- Left atrium Value Ref Aortic arch Value Ref AP dim, ES 3.40 cm 2.70 - Arch diam 1.6 cm ----- 3.80 ML dim, A4C 3.9 cm Decending aorta Value Ref SI dim, A4C 4.2 cm Moriah peak jose 0.69 m/sec ----- Vol/bsa, ES, 1-p 27 ml/m^2 11 - 40 A4C Pulmonary artery Value Ref Vol/bsa, ES, A/L 32 ml/m^2 16 - 34 Pressure, S 34.0 mm Hg ----- Right atrium Value Ref Inferior vena cava Value Ref SI dim, ES 4.0 cm 3.4 - 5.3 Diam 1.4 cm ----- ML dim, ES, A4C 3.5 cm 2.6 - 4.4 SI dim, ES, A4C 4.0 cm 3.4 - 5.3 SI dim/bsa, ES, 2.5 cm/m^2 1.9 - 3.1 A4C Estimated RAP 8 mm Hg Legend: (L) and (H) mame values outside specified reference range. Prepared and electronically signed by Colin Tuttle MD 02/22/2019 10:42
[2019-02-22] MEDS: metFORMIN* 500 MG TAB PO SCH ×2 (11:28→12:06)
--- NOTE | 2019-02-22 13:44 | DS ---
CC: Erwin James NP; Dr. Pike; Dr. Kingston DISCHARGE SUMMARY: DATE OF ADMISSION: 02/18/19 DATE OF DISCHARGE: 02/22/19 PRIMARY CARE PHYSICIAN: Erwin James NP. DISCHARGE DIAGNOSES: 1. Anterior wall ST-elevation infarct. 2. Congestive heart failure, systolic, acute. 3. Diabetes type 2. 4. Dyslipidemia. 5. Status post mitral valve replacement. 6. Right bundle-branch block. CONDITION ON DISCHARGE: Stable. DISPOSITION: Discharged to home. FOLLOWUP: 1. Follow up with tx 02/24/19 at 3 p.m. for wrist check. 2. With Dr. Maxwell for cardiac followup on 03/11/19 at 2:15. 3. New patient appointment with Dr. Kingston; the patient to call for appointment as she requested a change in primary care provider. DISCHARGE MEDICATIONS: 1. Aspirin 81 mg daily. 2. Lipitor 80 mg daily. 3. Carvedilol 6.25 mg q.a.m., 12.5 mg q.p.m. Titration goal 25 b.i.d. or as high as tolerated. 4. Glipizide 5 mg b.i.d. 5. Lisinopril 5 mg b.i.d. 6. Metformin 500 mg daily. 7. Nitroglycerin 0.4 sublingual p.r.n. 8. Aldactone 25 mg daily. 9. Brilinta 90 mg b.i.d. 10. Nasonex as before. ACTIVITY: No strenuous exertion. Wound care shower only for 2 days. DIET: Diabetic, low-fat, low-cholesterol, no-added salt. HISTORY: See H and P. Labs post PCI, BMP remained stable. BMP today, potassium is 4.5 after the institution of MAXIMO inhibitor and Aldactone. Blood sugar 227. Creatinine stable at 0.73. Admission LDL was 159 with HDL of 46, she was not on a statin. CPK-MB peaked at 108.9 with a relatively flat curve, troponin peaked at 11.32 with a relatively flat curve. EKG post infarct showed continued right bundle- branch block and persisting ST elevation in V2 through V5 with typical postinfarct evolution with development of terminal T-wave inversion. Her BNP was 122. HOSPITAL COURSE: She presented late with an acute anterior wall ST-elevation infarct, catheterization revealed a culprit LAD that was stented with a 2.75 x 16 drug-eluting stent, postdilated distally with 2.75 mm NC balloon, proximally with a 3 mm NC balloon. LV gram showed anteroapical akinesis with EF of 30%. She was continued on dual antiplatelet therapy without issues, carvedilol, started on high- dose potent statin, MAXIMO inhibitor was titrated and converted to lisinopril. She is being discharged on lisinopril 5 mg b.i.d. Carvedilol has been titrated up to 6.25 mg q.a.m., 12.5 mg q.p.m., Aldactone was added with stable creatinine and potassium. She had some frailty with fatigue with ambulation, but has gradually ambulated further, has not had any recurrence of ischemic pain, has not had arrhythmias, has not had decompensated heart failure. Repeat echo today showed persisting LV systolic dysfunction with EF of 30% to 35%. Hence, she will be discharged with a LifeVest. She requested a referral for a change in primary care. She was asked to call Dr. Kingston's office for an appointment. She has a followup visit with me next week for wrist check, she will follow with Dr. Maxwell long-term; that was scheduled. The anticipation is upward titration of her heart failure medications as an outpatient. On the day of discharge, she is ambulatory without heart failure on exam. Blood pressure today is 99/49, heart rate is in the 70s to 80s, sinus rhythm. She has not had ectopy. Her lungs are clear, JVP is normal. Cardiac exam was without murmur or gallop. Right radial artery is patent by reverse Cristhian, she has no edema. She received full discharge instructions, prescriptions were sent to her pharmacy. I have emphasized to her repeatedly the importance of medication adherence including dual antiplatelet therapy. Anticipation is that she will be switched to an SGLT1 inhibitor as an outpatient. If need be, she can be referred to Endocrine. She'll be dischareg after Lifevest is fitted and pt educated. [id number]/[facility] #: [id number] HARVEY
[2019-02-22 17:24] LABS: Troponin I 0.69 ng/mL (<0.04)
[2019-02-22] MEDS: Atorvastatin* 80 MG TAB PO SCH (18:04)
[2019-02-22 19:36] LABS: Troponin I 0.96 ng/mL (<0.04)
[2019-02-22] MEDS ORDERED: Loperamide CAP* 2 MG PO PRN (19:50)
[2019-02-23] MEDS: Ondansetron INJ* 2 MG/ML VIAL IV PRN (00:18)
[2019-02-23] MEDS ORDERED: Lisinopril TAB* 5 MG PO SCH (09:00)
[2019-02-23] MEDS: Insulin LISPRO* 1 UNITS UNIT SUBCUT SCH ×6 (09:11→17:15)
[2019-02-23] MEDS: Ticagrelor* 90 MG TAB PO SCH (09:18)
[2019-02-23] MEDS: Carvedilol TAB* 6.25 MG PO SCH (09:19)
[2019-02-23] MEDS: Aspirin 81 mg CHEW TAB* 81 MG TAB.CHEW PO SCH (09:19)
[2019-02-23] MEDS: metFORMIN* 500 MG TAB PO SCH (09:19)
[2019-02-23] MEDS: glipiZIDE TAB.XL* 5 MG PO SCH ×2 (09:19→17:15)
[2019-02-23] MEDS: Fluticasone NASAL SPRAY 50MCG* 16 gm SPRAY BTL BOTH NARES SCH (09:19)
[2019-02-23] MEDS: Spironolactone TAB* 25 MG PO SCH (09:19)
[2019-02-23 15:40] VITALS: BP 96/53
[2019-02-23] MEDS: Atorvastatin* 80 MG TAB PO SCH (17:49)
--- NOTE | 2019-02-23 23:38 | DS ---
DISCHARGE SUMMARY: ADDENDUM: DATE OF DISCHARGE: 02/23/19 HOSPITAL COURSE: She was not discharged yesterday because she did not feel comfortable going home with a LifeVest after instruction by the LifeVest patient financial representative, without her daughter being present and able to help. Today, LifeVest rep returned, reviewed again the mechanics of using the LifeVest. The patient became tearful, anxious, was concerned that she would not be able to manage the device. Her family is not able to be with her constantly, she is fearful of having the device when she is alone. We had a lengthy discussion in the presence of the daughter, final conclusion is the patient decided that she does not want to go home with a LifeVest, but she does want to go home. She understands the risks of sudden without a LifeVest. Today, she has not had dyspnea or chest pain, she is still frail, but ambulating. She had diarrhea after institution of metformin yesterday evening, now recalls that she had intractable diarrhea from metformin in the past and it was therefore discontinued today. Today, her vitals are stable. Her lungs are clear, JVP is normal, cardiac exam is unchanged without gallop or murmur. The right radial site is stable. She has no edema. Her BNP has elevated into the 300s. She has a small rise in troponin probably due to her heart failure, although she is clinically compensated, but has underlying severe left ventricular systolic dysfunction. She has not had chest pain. She will be discharged this evening to home, without LifeVest, but no other changes in discharge meds or followup. They have now decided they would like to have a nursing home admissions director, we will ask the discharge planning service to address that tomorrow during working hours. [id number]/[facility] #: [id number] HARVEY
== END 2019-02-23 18:30 | disposition home health service (06) | DRG 246 ==
LOC: ED 06:00 → CHICATH 06:59 → ICU 08:22 → MEDTELE 02-20 09:54
PROVIDERS: ADMIT Internal Medicine Cardiovascular Disease; ATTEND Internal Medicine Cardiovascular Disease
PROC: 4A023N7 Measurement of Cardiac Sampling and Pressure, Left Heart, Percutaneous Approach (ICD-10-PCS; 2019-02-18)
PROC: B2151ZZ Fluoroscopy of Left Heart using Low Osmolar Contrast (ICD-10-PCS; 2019-02-18)
PROC: B2111ZZ Fluoroscopy of Multiple Coronary Arteries using Low Osmolar Contrast (ICD-10-PCS; 2019-02-18)
PROC: 027034Z Dilation of Coronary Artery, One Artery with Drug-eluting Intraluminal Device, Percutaneous Approach (ICD-10-PCS; principal; 2019-02-18 07:00)
DX: I21.09 ST elevation (STEMI) myocardial infarction involving other coronary artery of anterior wall (principal); I50.21 Acute systolic (congestive) heart failure; E11.9 Type 2 diabetes mellitus without complications; M16.11 Unilateral primary osteoarthritis, right hip; H91.93 Unspecified hearing loss, bilateral; I45.10 Unspecified right bundle-branch block; I25.5 Ischemic cardiomyopathy; I25.10 Atherosclerotic heart disease of native coronary artery without angina pectoris; E78.5 Hyperlipidemia, unspecified; Z98.42 Cataract extraction status, left eye; Z95.2 Presence of prosthetic heart valve; Z88.1 Allergy status to other antibiotic agents; Z88.0 Allergy status to penicillin; Z87.442 Personal history of urinary calculi; Z98.41 Cataract extraction status, right eye; Z83.3 Family history of diabetes mellitus; Z82.49 Family history of ischemic heart disease and other diseases of the circulatory system; Z79.82 Long term (current) use of aspirin; Z79.84 Long term (current) use of oral hypoglycemic drugs; Z79.02 Long term (current) use of antithrombotics/antiplatelets
CPT/HCPCS: 36415; 71045; 76937; 80048; 80053; 80061; 82550; 82553; 83036; 83721; 83874; 83880; 84484; 85025; 85347; 85610; 87641; 93005; 93306; 99156; 99157; 99284; A9270-GY; C1725; C1769; C1876; C1887; C9606-LD; G8978-GP-CI; G8979-GP-CI; G8980-GP-CI; J1644; J1940; J2250; J2405; J3010

== ENCOUNTER 2019-03-29 19:58 | Emergency (ER) | payer MEDICARE, MEDICAID ==
[2019-03-29 20:16] LABS: ABS Basophils 0.1 10^3/ul (0-0.2); ABS Eosinophils 0.2 10^3/ul (0-0.6); ABS Lymphocytes 2.9 10^3/ul (1.0-4.8); ABS Neutrophils 6.5 10^3/ul (1.5-7.7); Eosinophil % 1.8 %; Hematocrit 43 % (35-47); Hemoglobin 14.7 g/dL (12.0-16.0); Mean Corpuscular HGB Conc 34 g/dL (31-36); Mean Corpuscular Hemoglobin 31 pg (27-31); Mean Corpuscular Volume 91 fL (80-97); Mean Platelet Volume 7.1 fL (7.4-10.4); Platelet Count 252 10^3/uL (150-450); Red Blood Count 4.78 10^6 /uL (3.70-4.87); Red Cell Distribution Width 14 % (10-15); White Blood Count 10.7 10^3/uL (3.5-10.8)
[2019-03-29 20:28] LABS: INR 1.03 (0.82-1.09)
--- NOTE | 2019-03-29 20:35 | ED ---
HPI Cardiac - HPI Summary HPI Summary: Patient is a 74 y/o F w/ Hx of ND and one cardiac stent placement on 02/18/19 who presents to [facility] with complaints of SOB, right-sided chest pain, back pain, right shoulder pain and intermittent right leg numbness. After stent placement by Dr. Pike, she was discharged to home. Patient states that she was able to be active with some moderation after her workup. However, she states that Sx gradually began to onset and have worsened over the past three days. Patient states that her chest pain is dissimilar to the chest pressure that she had during her ND. Hx of diabetes is noted, she states that her right leg numbness onsets while at night and resolves when she moves around. She denies BLE edema and recent falls. Patient additionally notes a sore throat but relates this to her SOB. PSHx of mitral valve replacement is noted. She is on Brillinta and is followed by Dr. Maxwell. On corporate director talent assessment, nothing is noted to aggravate/ alleviate Sx. In room, vitals 103, o2 94, BP 130/69. Home medications and allergies are reviewed. - History of Current Complaint Chief Complaint: EDChestPainROMI Stated Complaint: CHEST PAIN /SOB PER PT Time Seen by Provider: 03/29/19 20:30 Hx Obtained From: Patient Onset/Duration: Still Present Timing: Constant, Intermittent - right leg numbness Pain Intensity: 0 Pain Scale Used: 0-10 Numeric Chest Pain Location: Right Anterior Aggravating Factor(s): Nothing Alleviating Factor(s): Nothing Associated Signs and Symptoms: Positive: Chest Pain, Shortness of Breath, Back Pain, Other: - positive - right shoulder pain, sore throat, right leg numbness; negative - fall. Negative: Swelling, Edema - Additional Pertinent History Primary Care Physician: [id number] - Allergy/Home Medications Allergies/Adverse Reactions: Allergies Allergy/AdvReac Type Severity Reaction Status Date / Time doxycycline Allergy Nausea Verified 03/29/19 20:19 Penicillins Allergy Rash Verified 03/29/19 20:19 PMH/Surg Hx/FS Hx/Imm Hx Endocrine/Hematology History: Reports: Hx Diabetes Denies: Hx Thyroid Disease Cardiovascular History: Reports: Other Cardiovascular Problems/Disorders - mitral valve replacement Denies: Hx Hypertension, Hx Pacemaker/ICD Respiratory History: Denies: Hx Asthma, Hx Chronic Obstructive Pulmonary Disease (COPD) GI History: Denies: Hx Ulcer History: Reports: Hx Kidney Stones Denies: Hx Renal Disease Musculoskeletal History: Reports: Hx Arthritis - R hip Denies: Hx Gout Sensory History: Reports: Hx Cataracts - Had surgery on them, Hx Hearing Problem Denies: Hx Contacts or Glasses, Hx Hearing Aid Opthamlomology History: Reports: Hx Cataracts - Had surgery on them Denies: Hx Contacts or Glasses Psychiatric History: Denies: Hx Panic Disorder - Surgical History Surgery Procedure, Year, and Place: APPY , CSECT , CATARACT , COMPLICATIONS AND STAPH IN [place] FOLLOWING HEART SURGERY-*. HEART VALVE REPLACEMENT 2008-[employer] PORCINE HEART VALVE MODEL [id number] FOR UP TO 3T-PT WILL BRING CARD TO COPY. LEFT WRIST 04/2018. PCI - 02/2019 Infectious Disease History: No Infectious Disease History: Denies: Hx Hepatitis, Hx Human Immunodeficiency Virus (HIV), Traveled Outside the [place] in Last 30 Days - Family History Known Family History: Positive: Diabetes - Social History Alcohol Use: None Hx Substance Use: No Substance Use Type: Reports: None Hx Tobacco Use: No Smoking Status (MU): Never Smoked Tobacco Review of Systems Positive: Sore Throat Positive: Chest Pain Positive: Shortness Of Breath Musculoskeletal: Other - positive - back pain and right shoulder pain; negative - fall Positive: Numbness - intermittent at right leg All Other Systems Reviewed And Are Negative: Yes Physical Exam - Summary Physical Exam Summary: Appearance: Well-appearing, Well-nourished, lying in bed comfortably Skin: Warm, dry, no obvious rash Eyes: sclera anicteric, no conjunctival pallor ENT: mucous membranes moist, pharynx appears normal Neck: Supple, nontender Respiratory: Clear to auscultation, no signs of respiratory distress Cardiovascular: Normal S1, S2. No murmurs. Normal distal pulses in tibial and radial bilaterally. Abdomen: Soft, nontender, normal active bowel sounds present Musculoskeletal: Right upper back tenderness, Strength/ROM Intact Neurological: A&Ox3, awake and alert, mentation is normal, speech is fluent and appropriate Psychiatric: affect is normal, does not appear anxious or depressed Triage Information Reviewed: Yes Vital Signs On Initial Exam: Initial Vitals Temp Pulse Resp BP Pulse Ox 98 F 106 20 130/69 95 03/29/19 20:11 03/29/19 20:11 03/29/19 20:11 03/29/19 20:11 03/29/19 20:11 Vital Signs Reviewed: Yes Procedures - Sedation Patient Received Moderate/Deep Sedation with Procedure: No Diagnostics - Vital Signs Vital Signs Temp Pulse Resp BP Pulse Ox 03/29/19 20:16 100 96 03/29/19 20:15 104 130/69 95 03/29/19 20:11 98 F 106 20 130/69 95 - Laboratory Lab Results: Lab Results 03/29/19 03/29/19 Range/Units 20:09 20:09 WBC 10.7 (3.5-10.8) 10^3/uL RBC 4.78 (3.70-4.87) 10^6 /uL Hgb 14.7 (12.0-16.0) g/dL Hct 43 (35-47) % MCV 91 (80-97) fL MCH 31 (27-31) pg MCHC 34 (31-36) g/dL RDW 14 (10-15) % Plt Count 252 (150-450) 10^3/uL MPV 7.1 L (7.4-10.4) fL Neut % (Auto) 61.0 % Lymph % (Auto) 27.0 % [place] % (Auto) 9.5 % Eos % (Auto) 1.8 % Baso % (Auto) 0.7 % Absolute Neuts (auto) 6.5 (1.5-7.7) 10^3/ul Absolute Lymphs (auto) 2.9 (1.0-4.8) 10^3/ul Absolute Monos (auto) 1.0 H (0-0.8) 10^3/ul Absolute Eos (auto) 0.2 (0-0.6) 10^3/ul Absolute Basos (auto) 0.1 (0-0.2) 10^3/ul Absolute Nucleated RBC 0.0 10^3/ul Nucleated RBC % 0.0 INR (Anticoag Therapy) 1.03 (0.82-1.09) Result Diagrams: 03/29/19 20:09 03/29/19 20:09 Lab Statement: Any lab studies that have been ordered have been reviewed, and results considered in the medical decision making process. - Radiology CXR Radiology Interpretation Completed By: ED Physician Summary of Radiographic Findings: CXR showed no acute process, pending official report. THORACIC SPINE X-RAY Radiology Interpretation Completed By: ED Physician Summary of Radiographic Findings: Thoracic spine x-ray is negative for fracture , pending official report. - EKG 1999 Cardiac Rate: NL - rate of 98 BPM EKG Rhythm: Sinus Rhythm Summary of EKG Findings: EKG showed NSR with rate of 98 BPM, RBBB, no significant change from EKG done 02/22/19, no STEMI. This EKG was reviewed and interpreted by Dr. Plasencia. Re-Evaluation - Re-Evaluation First Eval Re-Evaluation Time: 23:11 Comment: Consult with Dr. Maxwell was discussed with patient. She is agreeable with discharge to home. Disposition - Course Course Of Treatment: Patient is a 74 y/o F w/ Hx of ND and one cardiac stent placement on 02/18/19 who presents to [facility] with complaints of SOB, right-sided chest pain, back pain, right shoulder pain and intermittent right leg numbness. Patient states that she was able to be active with some moderation after her workup. However, she states that Sx gradually began to onset and have worsened over the past three days. Patient states that her chest pain is dissimilar to the chest pressure that she had during her ND. She denies BLE edema and recent falls. She is on Brillinta and is followed by Dr. Maxwell. On physical exam, right upper back tenderness is noted. Bloodwork was obtained. D-dimer was negative, trop was negative. Abnormal values include MPV 7.1, absolute monos 1.0 , BUN 29, creatinine 0.98, BUN/creatinine ratio 29.6, glucose 232. CXR showed no acute process. Thoracic spine x-ray is negative for fracture. EKG showed NSR with rate of 98 BPM, RBBB, no significant change from EKG done 02/22/19, no STEMI. 2306 - Patient's case was discussed with Dr. Maxwell, he states that the patient can be discharged to home and follow up with him in office. Consult with Dr. Maxwell was discussed with patient. She is agreeable with discharge to home. - Diagnoses Provider Diagnoses: Dyspnea on exertion - Physician Notifications Discussed Care Of Patient With: Robson Maxwell Time Discussed With Above Provider: 23:07 Instructed by Provider To: Other - 2306 - Patient's case was discussed with Dr. Maxwell, he states that the patient can be discharged to home and follow up with him in office. Discharge ED - Sign-Out/Discharge Documenting (check all that apply): Patient Departure - discharge - Discharge Plan Condition: Good Disposition: HOME Patient Education Materials: Dyspnea (ED) Referrals: Robson Maxwell MD [Medical Doctor] - As Soon As Possible - Billing Disposition and Condition Condition: GOOD Disposition: Home - Attestation Statements Document Initiated by Jeremías: Yes Documenting Scribe: NIKI MASON Provider For Whom Jeremías is Documenting (Include Credential): ASHUTOSH PLASENCIA MD Scribe Attestation: NIKI Headley, scribed for ASHUTOSH PLASENCIA MD on 03/30/19 at 0543. Scribe Documentation Reviewed: Yes Provider Attestation: The documentation as recorded by the NIKI rutledge accurately reflects the service I personally performed and the decisions made by me, ASHUTOSH PLASENCIA MD Status of Scribe Document: Viewed
[2019-03-29 20:39] LABS: Albumin 4.3 g/dL (3.2-5.2); Albumin/Globulin Ratio 1.4 (1-3); BUN/Creatinine Ratio 29.6 (8-20); EGFR African American 66.8 (>60); EGFR Non-African American 55.2 (>60); Potassium 4.8 mmol/L (3.5-5.0); Total Bilirubin 0.6 mg/dL (0.2-1.0); Total Protein 7.3 g/dL (6.4-8.9)
[2019-03-29 20:41] LABS: Troponin I 0.01 ng/mL (<0.04)
--- OUTSIDE RECORDS SUMMARY | 2019-03-29 21:21 | XMS REPORT | Continuity of Care Document ---
:1945 External Reference #:[id number] Author Name Gill Pike MD, [facility], [facility] (transmitted by agent of provider Abril Mcmanus) Address [address] [place] [address] Care Team Providers Name Role Phone Erwin James NP - Family Care Team Information Purse Framer [phone] Problems Active Problems Provider Date Closed Colles' fracture Cortes Bose M.D. Onset: 05/07/2018 Social History Type Date Description Comments Sex Unknown ETOH Use Never used alcohol Recreational Drug Use Denies Drug Use Tobacco Use Start: Unknown Patient has never smoked Smoking Status Reviewed: 02/24/19 Patient has never smoked Exercise Type/Frequency Exercises regularly Allergies, Adverse Reactions, Alerts Active Allergies Reaction Severity Comments Date Penicillin HIVES 04/01/2012 Medications Active Medications SIG Qnty Indications Ordering Date Provider Hair/Skin/Nails/Biotin 1 tab daily Unknown 02/23/2019 Tablets Brilinta 1 tab by mouth 90tabs Gill T. 02/23/2019 90mg Tablets twice a day MD Pike [facility], [facility] Aspirin 81 Low Dose 1 by mouth every 30units Gill TLaura 02/23/2019 81mg day MD Glendy, Chewtabs MARGA, [facility] Lipitor 1 by mouth every 90tabs Gill TLaura 02/23/2019 80mg Tablets day MD Pike [facility], [facility] Carvedilol 1 tab every 180tabs Gill T. 02/23/2019 6.25mg Tablets morning, 1/2 tab MD Glendy, by mouth every [facility]AC, [facility] evening Lisinopril 1 by mouth twice 30tabs Gill Butt 02/23/2019 5mg Tablets daily MD Pike [facility], [facility] Nitroglycerin 1 sl q5mins x3 25tabs Gill LiuLaura 02/23/2019 0.4mg as needed for MD Glendy, Tablets Sub chest pain KARELY GRESHAM Metformin HCL 1 by mouth every Unknown 02/23/2019 500mg day Tablets Fluticasone Propionate 2 sprays each Unknown nostril daily as 50mcg/Act Suspension needed Glipizide ER 1 by mouth twice Unknown 5mg Tablets every day ER 24HR Multiple daily Unknown Vitamins/Womens Tablets Aldactone 1 by mouth every Unknown 25mg Tablets day Medications Administered in Office Medication SIG Qnty Indications Ordering Provider Date Depomedrol 80MG LINDA Mclean 12/15/2010 Injection Immunizations Description No Information Available Vital Signs Date Vital Result Comment 02/24/2019 3:59pm Height 63 inches 5'3" Weight 122.50 lb with shoes Heart Rate 80 /min radial BP Systolic Sitting 102 mmHg Lue reg cuff BP Diastolic Sitting 62 mmHg Lue reg cuff BP Systolic Standing 102 mmHg Lue reg cuff BP Diastolic Standing 62 mmHg Lue reg cuff BMI (Body Mass Index) 21.7 kg/m2 Ejection Fraction 30-35% ECHO 02/22/19 07/23/2018 11:16am Height 63 inches 5'3" Weight 116.00 lb BP Systolic 110 mmHg BP Diastolic 70 mmHg Respiratory Rate 20 /min Pain Level 1 BMI (Body Mass Index) 20.5 kg/m2 Results Test Date Facility Test Result H/L Range Note Laboratory test 02/18/2019 [facility] P[facility] Activated 263 seconds [address] [address] [phone] Laboratory test 02/18/2019 [facility]oc Activated 171 seconds [address] [place], [place] [id number] [phone] 1 Healthcare Financial Analyst: [id number] Reference Range: 74-125 seconds 2 Healthcare Financial Analyst: [id number] Reference Range: 74-125 seconds Procedures Date Code Description Status 02/24/2019 36252 EKG Tracing & Interpretation Completed Medical Devices Description No Information Available Encounters Description No Information Available Assessments Description No Information Available Plan of Treatment Future Appointment(s):03/11/2019 2:30 pm - Robson Maxwell M.D. at [facility] Functional Status Description No Information Available Mental Status Description No Information Available Referrals Refer to Reason for Referral Status Appt Date Sourav Spangler MD Closed [address] [address] [phone]
--- OUTSIDE RECORDS SUMMARY | 2019-03-29 21:21 | XMS REPORT | Continuity of Care Document ---
:1945 External Reference #:[id number] Author Name Robson Maxwell M.D. (transmitted by agent of provider Abril Mcmanus) Address [address] 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 Onset: 05/07/2018 Acute systolic heart failure Gill Pike MD, [facility], Onset: 02/24/2019 [facility] Acute ST segment elevation Gill Pike MD, [facility], Onset: 02/24/2019 myocardial infarction involving [facility] left anterior descending coronary artery Social History Type Date Description Comments Sex Unknown ETOH Use Never used alcohol Recreational Drug Use Denies Drug Use Tobacco Use Start: Unknown Patient has never smoked Smoking Status Reviewed: 03/10/19 Patient has never smoked Exercise Type/Frequency Exercises regularly Allergies, Adverse Reactions, Alerts Active Allergies Reaction Severity Comments Date Penicillin HIVES 04/01/2012 Medications Active Medications SIG Qnty Indications Ordering Date Provider Hair/Skin/Nails/Biotin 1 tab daily Unknown 02/23/2019 Tablets Brilinta 1 tab by mouth 90tabs Gill Butt 02/23/2019 90mg Tablets twice a day MD Glendy, MARGA, [facility] Aspirin 81 Low Dose 1 by mouth every 30units Gill Butt 02/23/2019 81mg day MD Glendy, Chewtabs MARGA, [facility] Lipitor 1 by mouth every 90tabs Gill Butt 02/23/2019 80mg Tablets day MD Glendy, JANICE, [facility] Carvedilol 1 tab every 180tabs Gill Butt 02/23/2019 6.25mg Tablets morning, 1/2 tab MD Glendy, by mouth every [facility], [facility] evening Lisinopril 1 by mouth twice 30tabs Gill T. 02/23/2019 5mg Tablets daily MD Glendy, [facility], [facility] Nitroglycerin 1 sl q5mins x3 25tabs Gill T. 02/23/2019 0.4mg as needed for MD Glendy, Tablets Sub chest pain [facility], [facility] Metformin HCL 1 by mouth every Unknown [...] Available Vital Signs Date Vital Result Comment 03/10/2019 2:01pm Height 63 inches 5'3" Weight 119.38 lb with shoes Heart Rate 62 /min radial regular BP Systolic Sitting 90 mmHg Lue BP Diastolic Sitting 54 mmHg Lue BP Systolic Standing 88 mmHg Lue BP Diastolic Standing 54 mmHg Lue O2 % BldC Oximetry 98 % Ra BMI (Body Mass Index) 21.1 kg/m2 Ejection Fraction 30-35% ECHO 02/22/19 02/24/2019 3:59pm Height 63 inches 5'3" Weight 122.50 lb with shoes Heart Rate 80 /min radial BP Systolic Sitting 102 mmHg Lue reg cuff BP Diastolic Sitting 62 mmHg Lue reg cuff BP Systolic Standing 102 mmHg Lue reg cuff BP Diastolic Standing 62 mmHg Lue reg cuff BMI (Body Mass Index) 21.7 kg/m2 Ejection Fraction 30-35% ECHO 02/22/19 Results Test Date Facility Test Result H/L Range Note Basic Metabolic 03/09/2019 [facility] Sodium 138 mmol/L Normal 135-[address] [place] [address] [phone] Potassium 4.4 mmol/L Normal 3.5-5.0 Chloride 102 mmol/L Normal 101-111 Co2 Carbon Dioxide 27 mmol/L Normal 22-32 Anion Gap 9 mmol/L Normal 2-11 Glucose 138 mg/dL High 70-100 Blood Urea Nitrogen 24 mg/dL Normal 6-24 Creatinine 0.96 mg/dL High 0.51-0.95 BUN/Creatinine Ratio 25.0 High 8-20 Calcium 9.6 mg/dL Normal 8.6-10.3 Egfr Non- 56.5 >60 Egfr 68.4 >60 1 Laboratory 03/09/2019 [facility] B-Type 118 pg/mL High <=100 test finding [address] [place] [address] Peptide BNP [phone] CBC Auto Diff 03/09/2019 [facility] White Blood 7.1 Normal 3.5 -10.[address] Count 10^3/[place] [address] [phone] Red Blood Count 4.52 10^6/uL Normal 3.70-4.87 Hemoglobin 13.8 g/dL Normal 12.0-16.0 Hematocrit 41 % Normal 35-47 Mean Corpuscular Volume 91 fL Normal 80-97 Mean Corpuscular Hemoglobin 31 pg Normal 27-31 Mean Corpuscular HGB Conc 34 g/dL Normal 31-36 Red Cell Distribution Width 14 % Normal 10-15 Platelet Count 236 10^3/uL Normal 150-450 Mean Platelet Volume 7.5 fL Normal 7.4-10.4 Abs Neutrophils 3.5 10^3/uL Normal 1.5-7.7 Abs Lymphocytes 2.2 10^3/uL Normal 1.0-4.8 Abs Monocytes 1.4 10^3/uL High 0-0.8 Abs Eosinophils 0.1 10^3/uL Normal 0-0.6 Abs Basophils 0.0 10^3/uL Normal 0-0.2 Abs Nucleated RBC 0.0 10^3/uL Granulocyte % 48.7 % Lymphocyte % 30.2 % Monocyte % 18.9 % Eosinophil % 1.6 % Basophil % 0.6 % Nucleated Red Blood Cells % 0.0 Laboratory test 02/18/2019 [facility] Poc Activated 263 seconds [address] [place] [address] [phone] Laboratory test 02/18/2019 [facility] Poc Activated 171 seconds [address] [place] [address] [phone] 1 Because ethnic data is not always readily available, this report includes an eGFR for both -Americans and non- Americans. The National Kidney Disease Education Program (NKDEP) does not endorse the use of the MDRD equation for patients that are not between the ages of 18 and 70, are , have extremes of body size, muscle mass, or nutritional status, or are non- or non-. According to the National Kidney Foundation, irrespective of diagnosis, the stage of the disease is based on the level of kidney function: Stage Description GFR(mL/min/1.73 m(2)) 1 Kidney damage with normal or decreased GFR 90 2 Kidney damage with mild decrease in GFR 60-89 3 Moderate decrease in GFR 30-59 4 Severe decrease in GFR 15-29 5 Kidney failure <15 (or dialysis) 2 Gizzard Puller: [id number] Reference Range: 74-125 seconds 3 Gizzard Puller: [id number] Reference Range: 74-125 seconds Procedures Date Code Description Status 02/24/2019 23221 EKG Tracing & Interpretation Completed 02/22/2019 30844 ECHO Transthorasic Realtime 2D W Doppler & Color Flow Hosp Completed 02/18/2019 82117 Left Heart Cath. 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 [facility] Abdoulaye Maxwell left anterior descending coronary artery I50.21 Acute systolic (congestive) heart failure I25.10 Athscl heart disease of [place] coronary artery w/o ang pctrs R06.00 Dyspnea, unspecified Office Visit 02/21/2019 [facility] Reese E11.9 Type 2 diabetes 11:33a maile Cedeño PA mellitus without Hospitalists complications I50.21 Acute systolic (congestive) heart failure E78.5 Hyperlipidemia, unspecified Office Visit 02/20/2019 [facility] Linda Lowe, E11.9 Type 2 diabetes 11:33a maile Cedeño NP mellitus without Hospitalists complications Assessments Date Code Description Provider 03/10/[address] elevation (Stemi) myocardial Robson Maxwell M.D. infarction involving left anterior descending coronary artery 03/10/2019 I50.21 Acute systolic (congestive) heart Robson Maxwell M.D. 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 02/24/[address] elevation (Stemi) myocardial Gill Pike MD, FACC , infarction involving left anterior FSCAI descending coronary artery 02/24/2019 I50.21 Acute systolic (congestive) heart Gill Pike MD, FACC, failure [facility] 02/24/2019 R54 Age-related physical debility Gill Pike MD, FACC, [facility] 02/23/[address] elevation (Stemi) myocardial Gill Pike MD, FACC , infarction involving left anterior FSCAI descending coronary artery 02/23/2019 I50.21 Acute systolic (congestive) heart Gill Pike MD, FACC, failure [facility] 02/23/2019 E11.9 Type 2 diabetes mellitus without Gill Pike MD, FACC , complications [facility] 02/23/2019 E78.5 Hyperlipidemia, unspecified Gill Pike MD, FACC, [facility] 02/23/2019 I45.10 Unspecified right bundle-branch block Gill Pike MD, FACC, [facility] 02/22/[address] elevation (Stemi) myocardial Colin Jeffery Tuttle M.D., FACC, infarction involving left anterior FASNC descending coronary artery 02/21/[address] elevation (Stemi) myocardial Gill Pike MD, FACC , infarction involving left anterior FSCAI descending coronary artery 02/21/2019 E11.9 Type 2 diabetes mellitus without [facility] [place] complications 02/21/2019 I50.9 Heart failure, unspecified Gill Pike MD, FACC, [facility]SCAI 02/21/2019 I50.21 Acute systolic (congestive) heart [facility] [place] failure 02/21/2019 E78.5 Hyperlipidemia, unspecified [facility] [place] 02/20/2019 E11.9 Type 2 diabetes mellitus without Linda Lowe NP complications 02/18/[address] elevation (Stemi) myocardial Candieangelita Saldana NP infarction involving left anterior descending coronary artery 02/18/2019 I25.10 Atherosclerotic heart disease of Candie Saldana [employer]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 [place] coronary artery without angina pectoris 02/18/2019 E78.5 Hyperlipidemia, unspecified Candie Saldana [employer] INST[employer] 02/18/2019 E11.9 Type 2 diabetes mellitus without Candie Saldana NP complications 02/18/[address] elevation (Stemi) myocardial Gill Pike MD, [facility] , infarction involving left anterior FSCAI descending coronary artery 02/18/2019 I25.10 Atherosclerotic heart disease of Gill Pike MD, [facility], [place] coronary artery without angina FSCAI pectoris Plan of Treatment Future Appointment(s):03/19/2019 1:00 pm - Candie Saldana NP at [facility]03/10/2019 - Robson Maxwell M.D.I21.02 St elevation (Stemi) myocardial infarction involving left anterior descending coronary arteryNew Xrays:Chest PA & Lat 2 VWS, Scheduled: 03/10/19Follow up:cancel appt tomorrow OV with CONVEYOR BELT INSTALLER in 7-10 daysRecommendations:stop taking Coreg (carvedilol) Use Nasonex as directed for post nasal dripI50.21 Acute systolic (congestive) heart qmglhnsG05.10 Atherosclerotic heart disease of [place] coronary artery without angina pkmvkqwxC93.00 Dyspnea Functional Status Description No Information Available Mental Status Description No Information Available Referrals Refer to Dr Reason for Referral Status Appt Date Sourav Spangler MD Closed [address] [place] [address] [phone]
--- OUTSIDE RECORDS SUMMARY | 2019-03-29 21:21 | XMS REPORT | Continuity of Care Document ---
:1945 External Reference #:[id number] Author Name Robson Maxwell M.D. (transmitted by agent of provider Nehal Ibrahim) Address 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 Onset: 05/07/2018 Social History Type Date Description Comments Sex Unknown ETOH Use Never used alcohol Recreational Drug Use Denies Drug Use Tobacco Use Start: Unknown Patient has never smoked Smoking Status Reviewed: 07/23/18 Patient has never smoked Exercise Type/Frequency Exercises regularly Allergies, Adverse Reactions, Alerts Active Allergies Reaction Severity Comments Date Penicillin HIVES 04/01/2012 Medications Active Medications SIG Qnty Indications Ordering Provider Date Glucosamine 1 by mouth every Unknown Chondroitin 1500 day Complex 1500Com Capsules Fluticasone Propionate 2 sprays each Unknown nostril daily as 50mcg/Act Suspension needed Glipizide ER 1 by mouth twice Unknown 5mg Tablets every day ER 24HR Multiple daily Unknown Vitamins/Womens Tablets Hair/Skin/Nails/Biotin Unknown Tablets Ipratropium [place] 2 sprays in each Unknown 0.06% nostril 2 times Solution daily as needed Medications Administered in Office Medication SIG Qnty Indications Ordering Provider Date Depomedrol 80MG LINDA Mclean 12/15/2010 Injection Immunizations Description No Information Available Vital Signs Date Vital Result Comment 07/23/2018 11:16am Height 63 inches 5'3" Weight 116.00 lb BP Systolic 110 mmHg BP Diastolic 70 mmHg Respiratory Rate 20 /min Pain Level 1 BMI (Body Mass Index) 20.5 kg/m2 06/25/2018 11:18am Height 63 inches 5'3" Weight 116.00 lb BP Systolic 118 mmHg BP Diastolic 66 mmHg Body Temperature 98.9 F BMI (Body Mass Index) 20.5 kg/m2 Results Test Date Facility Test Result H/L Range Note Laboratory test 02/18/2019 [facility] Poc Activated 263 seconds [address] [place] [address] [phone] Laboratory test 02/18/2019 [facility] Poc Activated 171 seconds [address] [address] [phone] 1 Retort Kiln Burner: [id number] Reference Range: 74-125 seconds 2 Retort Kiln Burner: [id number] Reference Range: 74-125 seconds Procedures Description No Information Available Medical Devices Description No Information Available Encounters Description No Information Available Assessments Description No Information Available Plan of Treatment Future Appointment(s):02/24/2019 3:20 pm - Gill Pike MD, [facility]/11/2019 2:30 pm - Robson Maxwell M.D. at [facility]07/23/2018 - Cortes Bose M.D.S52.532D Colles' fracture of left radius, subsequent encounter for clReferral:Sarah Centeno MD , Sports Medicine:Family prFollow up:Follow up: Follow up with Dr. Centeno for bone metabolic evaluation Follow up as needed with Dr. Bose ifyou have more pain, decreased ROM Functional Status Description No Information Available Mental Status Description No Information Available Referrals Refer to Reason for Referral Status Appt Date Sourav Spangler MD Sent [address] [place] [address] [phone]
--- OUTSIDE RECORDS SUMMARY | 2019-03-29 21:21 | XMS REPORT | Continuity of Care Document ---
:1945 External Reference #:[id number] Author Name Robson Maxwell M.D. (transmitted by agent of provider Nehal Ibrahim) Address 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 [phone] Problems Active Problems Provider Date Closed Colles' [...] Unknown Vitamins/Womens Tablets Hair/Skin/Nails/Biotin Unknown Tablets Ipratropium [place] 2 sprays in each Unknown 0.06% nostril [...] Result H/L Range Note Laboratory test 02/18/2019 [facility] Poc Activated 263 seconds [address] [place] [address] [phone] Laboratory test 02/18/2019 [facility] Poc Activated 171 seconds [address] [place] [address] [phone] 1 Supply Person: [id number] Reference Range: 74-125 seconds 2 Supply Person: [id number] Reference Range: 74-125 seconds Procedures Description No Information Available Medical Devices Description No Information Available Encounters Description No Information Available Assessments Description No Information Available Plan of Treatment 07/23/2018 - Cortes Bose M.D.S52.532D Colles' fracture of left radius, subsequent encounter for clReferral:Sarah Centeno MD, Sports Medicine:Family prFollow up:Follow up: Follow up with Dr. Centeno for bone metabolic evaluation Follow up as needed with Dr. Bose ifyou have more pain, decreased ROM Functional Status Description No Information Available Mental Status Description No Information Available Referrals Description No Information Available
--- OUTSIDE RECORDS SUMMARY | 2019-03-29 21:21 | XMS REPORT | Continuity of Care Document ---
:1945 External Reference #:[id number] Author Name Candie Saldana NP (transmitted by agent of provider Juany Dozier) Address [address] [place] [address] Care Team Providers Name Role Phone Erwin James NP - Family Care Team Information Dispatcher Maintenance Service [phone] Problems Active Problems Provider Date Closed Colles' fracture Cortes Bose M.D. Onset: 05/07/2018 Acute systolic heart failure Gill Pike MD, [facility], Onset: 02/24/[address] [facility] [address] segment elevation Gill Pike MD, [facility], Onset: 02/24/2019 myocardial infarction involving [facility] left anterior descending coronary artery Social History Type Date Description Comments Sex Unknown ETOH Use Never used alcohol Recreational Drug Use Denies Drug Use Tobacco Use Start: Unknown Patient has never smoked Smoking Status Reviewed: 03/19/19 Patient has never smoked Exercise Type/Frequency Exercises regularly Allergies, Adverse Reactions, Alerts Active Allergies Reaction Severity Comments Date Penicillin HIVES 04/01/2012 Medications Active Medications SIG Qnty Indications Ordering Date Provider Hair/Skin/Nails/Biotin 1 tab daily Unknown 02/23/2019 Tablets Brilinta 1 tab by mouth 90tabs Gill Butt 02/23/2019 90mg Tablets twice a day MD Glendy, MARGA, [facility] Aspirin 81 Low Dose 1 by mouth every 30units Gill Butt 02/23/2019 81mg day MD Glendy, Chewtabs MAR[place], [facility] Lipitor 1 by mouth every 90tabs Gill Butt 02/23/2019 80mg Tablets day MD Glendy, MAR[place], [facility] Lisinopril 1 by mouth twice 30tabs Gill Butt 02/23/2019 5mg Tablets daily MD Glendy, MAR[place], [facility] Nitroglycerin 1 sl q5mins x3 25tabs Gill Butt 02/23/2019 0.4mg as needed for MD Glendy, Tablets Sub chest pain MAR[facility] Fluticasone Propionate 2 sprays each Unknown nostril daily as 50mcg/Act Suspension needed Glipizide ER 1 by mouth twice Unknown 5mg Tablets every day ER 24HR Multiple daily Unknown Vitamins/Womens Tablets Aldactone 1 by mouth every Unknown 25mg Tablets day History Medications Carvedilol 1 tab every 180tabs Gill Pike, 02/23/2019 - 6.25mg morning, 1/2 tab [place] DRIVER, [facility] 03/18/2019 Tablets by mouth every evening Metformin HCL 1 by mouth every Unknown 02/23/2019 - 500mg day 03/18/2019 Tablets Medications Administered in Office Medication SIG Qnty Indications Ordering Provider Date Depomedrol 80MG LINDA Mclean 12/15/2010 Injection Immunizations Description No Information Available Vital Signs Date Vital Result Comment 03/19/2019 1:08pm Height 63 inches 5'3" Weight 125.38 lb w/ shoes Heart Rate 72 /min irregular, radial L. pulse BP Systolic Sitting 112 mmHg Lue, reg cuff BP Diastolic Sitting 68 mmHg Lue, reg cuff BP Systolic Standing 90 mmHg Lue, reg cuff BP Diastolic Standing 60 mmHg Lue, reg cuff BMI (Body Mass Index) 22.2 kg/m2 Ejection Fraction 30-35% 03/10/2019 2:01pm Height 63 inches 5'3" Weight 119.38 lb with shoes Heart Rate 62 /min radial regular BP Systolic Sitting 90 mmHg Lue BP Diastolic Sitting 54 mmHg Lue BP Systolic Standing 88 mmHg Lue BP Diastolic Standing 54 mmHg Lue O2 % BldC Oximetry 98 % Ra BMI (Body Mass Index) 21.1 kg/m2 Ejection Fraction 30-35% ECHO 02/22/19 Results Test Date Facility Test Result H/L Range Note Basic Metabolic 03/09/2019 [facility] Sodium 138 mmol/L Normal 135-[address] [place] [address] [phone] Potassium 4.4 mmol/L Normal 3.5-5.0 Chloride 102 mmol/L Normal 101-111 Co2 Carbon Dioxide 27 mmol/L Normal 22-32 Anion Gap 9 mmol/L Normal 2-11 Glucose 138 mg/dL High 70-100 Blood Urea Nitrogen 24 mg/dL Normal 6-24 Creatinine 0.96 mg/dL High 0.51-0.95 BUN/Creatinine Ratio 25.0 High 8-20 Calcium 9.6 mg/dL Normal 8.6-10.3 Egfr Non- 56.5 >60 Egfr 68.4 >60 1 Laboratory 03/09/2019 [facility] B-Type 118 pg/mL High <=100 test finding [address] [place] [address] Peptide BNP [phone] CBC Auto Diff 03/09/2019 [facility] White Blood 7.1 Normal 3.5 -10.[address] Count 10^3/[place] [address] [phone] Red Blood Count 4.52 10^6/uL Normal 3.70-4.87 [...] Blood Cells % 0.0 Laboratory test 02/18/2019 [facility] Poc Activated 263 seconds [address] [place] [address] [phone] Laboratory test 02/18/2019 [facility] Poc Activated 171 seconds [address] [place] [address] [phone] 1 Because ethnic data is not always [...] 5 Kidney failure <15 (or dialysis) 2 Reconnaissance Crewmember: [id number] Reference Range: 74-125 seconds 3 Reconnaissance Crewmember: [id number] Reference Range: 74-125 seconds Procedures Date Code Description Status 02/24/2019 44463 EKG Tracing & Interpretation Completed 02/22/2019 91865 ECHO Transthorasic Realtime 2D W Doppler & Color Flow Hosp Completed 02/18/2019 93056 Left Heart Cath. 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 R06.00 Dyspnea, unspecified Office Visit 02/24/2019 3:20p [facility] Gill Butt I21.02 Stemi involving Of Senior Sales Director AT [facility] MD Glendy, left anterior FACC, FSCAI descending coronary artery I50.21 Acute systolic (congestive) heart failure R54 Age-related physical debility Office Visit 02/23/2019 2:13p [facility] Gill Butt I21.02 Stemi involving Of Senior Sales Director AT [facility] MD Glendy, left anterior FACC, FSCAI descending coronary artery I50.21 Acute systolic (congestive) heart failure E11.9 Type 2 diabetes mellitus without complications E78.5 Hyperlipidemia, unspecified I45.10 Unspecified right bundle-branch block Office Visit 02/21/2019 2:12p [facility] Gill Butt I21.02 Stemi involving Of Senior Sales Director AT [facility] MD [place], left anterior FACC, FSCAI descending coronary artery I50.9 Heart failure, unspecified Office Visit 02/21/2019 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 infarction involving left anterior descending coronary artery 03/10/2019 I50.21 Acute systolic (congestive) heart Robson Maxwell M.D. failure 03/10/2019 I25.10 Atherosclerotic heart disease of Robson Maxwell M.D. koi coronary artery without angina pectoris 03/10/2019 R06.00 Dyspnea Robson Maxwell M.D. 02/24/[address] elevation (Stemi) myocardial Gill Pike MD, FACC , infarction involving left anterior FSCAI descending coronary artery 02/24/2019 I50.21 Acute systolic (congestive) heart Gill Pike MD, FACC, failure [facility] 02/24/2019 R54 Age-related physical debility Gill Pike MD, FACC, [facility] 02/23/[address] elevation (Stemi) myocardial Gill Pike MD, FACC , infarction involving left anterior FSCAI descending coronary artery 02/23/2019 I50.21 Acute systolic (congestive) heart Gill Pike MD, FACC, failure [facility] 02/23/2019 E11.9 Type 2 diabetes mellitus without Gill Pike MD, FACC , complications [facility] 02/23/2019 E78.5 Hyperlipidemia, unspecified Gill Pike MD, FACC, [facility] 02/23/2019 I45.10 Unspecified right bundle-branch block Gill Pike MD, FACC, [facility] 02/22/[address] elevation (Stemi) myocardial Colin Jeffery Tuttle M.D., [facility], infarction involving left anterior FASNC descending coronary artery 02/21/[address] elevation (Stemi) myocardial Gill Pike MD, FACC , infarction involving left anterior FSCAI descending coronary artery 02/21/2019 E11.9 Type 2 diabetes mellitus without AD [place] complications 02/21/2019 I50.9 Heart failure, unspecified Gill Pike MD, FACC, [facility] 02/21/2019 I50.21 Acute systolic (congestive) heart AD [place] failure 02/21/2019 E78.5 Hyperlipidemia, unspecified [facility] [place] 02/20/2019 E11.9 Type 2 diabetes mellitus without Linda Lowe NP complications 02/18/[address] elevation (Stemi) myocardial Candie Saldana NP infarction involving left anterior descending coronary artery 02/18/2019 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 02/18/2019 E78.5 Hyperlipidemia, unspecified Candie Saldana NP 02/18/2019 E11.9 Type 2 diabetes mellitus without Candie Saldana NP complications 02/18/[address] elevation (Stemi) myocardial Gill Pike MD, [facility] , infarction involving left anterior FSCAI descending coronary artery 02/18/2019 I25.10 Atherosclerotic heart disease of Gill Pike MD, [facility], koi coronary artery without angina FSCAI pectoris Plan of Treatment Future Appointment(s):05/18/2019 1:00 pm - Candie Saldana NP at [facility]04/16/2019 1:30 pm - [place] ECHO Schedule at [facility]2018 - Candie Saldana NPI25.10 Atherosclerotic heart disease of koi coronary artery without angina pectorisReferral:[facility], Rehab:Cardiac Fac/ClinicRecommendations:please drink coffee before you take Brilinta.I10 Essential (primary) trvxwetnrudoG27.5 Hyperlipidemia, vzdyqqpxpkdV08.00 DyspneaReferral:Nayely Fan MD, Family MedicineRecommendations:follow up with Dr. Nayely Fan to discuss starting Jardiance in addition to exploring abnormal chest x ray. Referral placed for you to see Dr. FanI25.5 Ischemic cardiomyopathyNew Orders:Echocardiogram, Limited Study, Scheduled: 04/16/19Follow up:follow up in 4-6 weeks after echo Functional Status Description No Information Available Mental Status Description No Information Available Referrals Refer to Reason for Referral Status Appt Date [facility] Created [address] [place], [place] [id number] [phone] Nayely Fan MD Created [address] [place] [address] [phone] Sourav Spangler MD Closed [address] [place] [phone]
--- OUTSIDE RECORDS SUMMARY | 2019-03-29 21:21 | XMS REPORT | Continuity of Care Document ---
:1945 External Reference #:[id number] Author Name Colin Tuttle M.D., [facility], FASSC (transmitted by agent of provider Nehal Ibrahim) Address [address] [place] [address] Care Team Providers Name Role Phone Erwin James ENTERTAINMENT DANCER - Family Care Team Information Certified Detention Deputy [phone] Problems Active Problems Provider Date Closed Colles' [...] Unknown Vitamins/Womens Tablets Hair/Skin/Nails/Biotin Unknown Tablets Ipratropium Steedman 2 sprays in each Unknown 0.06% nostril [...] Result H/L Range Note Laboratory test 02/18/2019 [facility] Poc Activated 263 seconds [address] [place] [address] [phone] Laboratory test 02/18/2019 [facility] Poc Activated 171 seconds [address] [place] [address] [phone] 1 Plant Protection Superintendent: [id number] Reference Range: 74-125 seconds 2 Plant Protection Superintendent: [id number] Reference Range: 74-125 seconds Procedures Description No Information Available Medical Devices Description No Information Available Encounters Description No Information Available Assessments Description No Information Available Plan of Treatment Future Appointment(s):03/11/2019 2:30 pm - Robson Maxwell M.D. at [facility]07/23/2018 - Cortes Bose M.D.S52.532D Colles' fracture of left radius, subsequent encounter for clReferral:Sarah Centeno MD, Sports Medicine:Family prFollow up:Follow up: Follow up with Dr. Centeno for bone metabolic evaluation Follow up as needed with Dr. Bose ifyou have more pain , decreased ROM Functional Status Description No Information Available Mental Status Description No Information Available Referrals Refer to Reason for Referral Status Appt Sourav Gallego MD Sent [address] [place] [id number] [phone]
[2019-03-29 23:40] VITALS: BP 94/51
== END 2019-03-29 23:39 | disposition home or self-care (01) ==
LOC: ED 19:58
DX: R06.00 Dyspnea, unspecified (principal); I25.2 Old myocardial infarction; I45.10 Unspecified right bundle-branch block; E11.9 Type 2 diabetes mellitus without complications; Z95.4 Presence of other heart-valve replacement; Z88.0 Allergy status to penicillin; Z87.442 Personal history of urinary calculi
CPT/HCPCS: 36415; 71046; 72070; 80053; 83880; 84484; 85025; 85379; 85610; 93005; 99283

== ENCOUNTER 2022-07-12 16:14 | Inpatient (IN) ==
[2022-07-12] MEDS ORDERED: Ondansetron 4 mg VIAL 2 MG/ML 2 ml VIAL IV ONE (17:23)
[2022-07-12 17:50] LABS: ABS Eosinophils 0.1 10^3/ul (0-0.6); ABS Lymphocytes 1.4 10^3/ul (1.0-4.8); ABS Monocytes 0.7 10^3/ul (0-0.8); ABS Neutrophils 7.9 10^3/ul (1.5-7.7); Eosinophil % 1.4 %; Hematocrit 42 % (35-47); Hemoglobin 13.5 g/dL (12.0-16.0); Lymphocyte % 13.4 %; Mean Corpuscular HGB Conc 32 g/dL (31-36); Mean Corpuscular Hemoglobin 30 pg (27-31); Mean Corpuscular Volume 92 fL (80-97); Platelet Count 166 10^3/uL (150-450); Red Blood Count 4.56 10^6 /uL (3.70-4.87); Red Cell Distribution Width 14 % (10-15); White Blood Count 10.2 10^3/uL (3.5-10.8)
[2022-07-12 18:13] LABS: High Sens Troponin Baseline 13 pg/mL (<15)
[2022-07-12 18:20] LABS: Urine Appearance Clear; Urine Bilirubin Negative (Negative); Urine Blood 1+ (Negative); Urine Color Yellow; Urine Glucose Negative (Negative); Urine Ketones Negative (Negative); Urine Nitrite Negative (Negative); Urine Protein Negative (Negative); Urine Specific Gravity 1.021 (1.002-1.030); Urine Urobilinogen Negative (Negative)
[2022-07-12 18:21] LABS: ALT 29 U/L (7-52); Albumin 3.8 g/dL (3.2-5.2); Albumin/Globulin Ratio 1.7 (1-3); Alkaline Phosphatase 71 U/L (35-149); Blood Urea Nitrogen 19 mg/dL (6-24); CO2 Carbon Dioxide 30 mmol/L (22-32); Calcium 9.2 mg/dL (8.6-10.3); Chloride 104 mmol/L (101-111); Creatinine, Serum 0.63 mg/dL (0.51-0.95); Globulin 2.2 g/dL (2-4); Glucose 181 mg/dL (70-100); Sodium 140 mmol/L (135-145); eGFR CKD-EPI 90.2 (>60)
[2022-07-12 18:22] LABS: Urine Bacteria Absent (Absent); Urine Red Blood Cell 2+(6-10/hpf) (Absent); Urine Squamous Epithelial Cell Present (Absent); Urine White Blood Cell Trace(0-5/hpf) (Absent)
[2022-07-12 18:24] LABS: Anion Gap 6 mmol/L (2-11)
[2022-07-12] MEDS ORDERED: Dextrose 50% Syringe 50 ml 25 GM/50 ML SYRINGE IV PUSH PRN (18:38)
[2022-07-12] MEDS ORDERED: Ondansetron 4 mg VIAL 2 MG/ML 2 ml VIAL IV PRN (18:43)
[2022-07-12] MEDS ORDERED: Iodixanol (CONTRAST) 320 MG/ML 100 ML SDV IV ONE (19:53)
[2022-07-12 19:57] LABS: Magnesium 1.9 mg/dL (1.9-2.7); Potassium Redraw 3.8 mmol/L (3.5-5.0)
[2022-07-12] MEDS: Morphine 2 MG/ML SYRINGE IV PRN (20:01)
[2022-07-12] MEDS: Heparin 5000 UNITS/ML 1 mL VIAL SUBCUT SCH (22:46)
[2022-07-13] MEDS: Morphine 2 MG/ML SYRINGE IV PRN ×2 (00:24→02:30)
[2022-07-13] MEDS: Heparin 5000 UNITS/ML 1 mL VIAL SUBCUT SCH ×3 (05:34→23:52)
[2022-07-13] MEDS: NS 0.9% 1000 ml BAG 1,000 ML IV SCH ×2 (07:12→21:38)
[2022-07-13] MEDS ORDERED: ceFAZolin 2 GM in NS PREMIX 2 GM/100 ML BAG IVPB ONE (15:02)
[2022-07-13] MEDS ORDERED: Buffered Lidocaine 1% SYRIN 1 ml INTRADERM ONE (15:28)
[2022-07-13] MEDS ORDERED: Ondansetron 4 mg VIAL 2 MG/ML 2 ml VIAL IV PRN (15:29)
[2022-07-13] MEDS ORDERED: fentaNYL 100 mcg/2 ml 50 MCG/ML VIAL IV PRN (15:29)
[2022-07-13] MEDS ORDERED: Naloxone 0.4 mg VIAL 0.4 mg/ml 1 ml VIAL IV PRN (15:29)
[2022-07-13] MEDS ORDERED: ROPIVACAINE 5 MG/ML 30 ML BTL (0.5%) ONE ×2 (15:39→15:43)
[2022-07-13] MEDS ORDERED: fentaNYL 100 mcg/2 ml 50 MCG/ML VIAL ONE ×2 (15:43→15:51)
[2022-07-13] MEDS ORDERED: Propofol 10 MG/ML 20 ML BTL ONE ×2 (15:44→15:53)
[2022-07-13] MEDS ORDERED: Lidocaine 2% PF 5 ML VIAL ONE (15:53)
[2022-07-13] MEDS ORDERED: Ondansetron 4 mg VIAL 2 MG/ML 2 ml VIAL ONE (15:53)
[2022-07-13] MEDS ORDERED: Lactated Ringers 1000 ml BAG 1,000 ML IV SCH (16:00)
[2022-07-13] MEDS ORDERED: ceFAZolin VIAL VIAL ONE (16:00)
[2022-07-13] MEDS ORDERED: Lidocaine 1% VIAL 10 MG/ML VIAL 30 ML ONE (16:01)
[2022-07-13] MEDS ORDERED: Lidocaine 1.5% EPI 1:200,000 30 ML SDV ONE (16:01)
[2022-07-13] MEDS ORDERED: Clindamycin 900 MG/D5W BAG 900 MG/50 ML BAG IVPB ONE (16:13)
[2022-07-13] MEDS ORDERED: Phenylephrine 40 mcg/mL 10mL (400mcg) SYRINGE ONE (17:11)
[2022-07-13] MEDS ORDERED: Acetaminophen IV 1 GM/100ML 1,000 MG/100 ML BAG IV ONE (17:11)
[2022-07-13] MEDS ORDERED: Dexamethasone IV 4 MG/ML VIAL 1 ml VIAL ONE (17:11)
[2022-07-13 20:11] LABS: ABS Lymphocytes 0.5 10^3/ul (1.0-4.8); ABS Monocytes 0.3 10^3/ul (0-0.8); ABS Neutrophils 8.7 10^3/ul (1.5-7.7); Eosinophil % 0.4 %; Hematocrit 28 % (35-47); Hemoglobin 8.9 g/dL (12.0-16.0); Lymphocyte % 5.4 %; Mean Corpuscular HGB Conc 32 g/dL (31-36); Mean Corpuscular Hemoglobin 30 pg (27-31); Mean Corpuscular Volume 92 fL (80-97); Mean Platelet Volume 7.8 fL (7.4-10.4); Platelet Count 112 10^3/uL (150-450); Red Cell Distribution Width 14 % (10-15); White Blood Count 9.5 10^3/uL (3.5-10.8)
[2022-07-14] MEDS: Clindamycin 600 MG/D5W BAG IV SCH ×3 (03:20→17:55)
[2022-07-14 05:56] LABS: ABS Lymphocytes 0.8 10^3/ul (1.0-4.8); ABS Monocytes 0.8 10^3/ul (0-0.8); ABS Neutrophils 8.1 10^3/ul (1.5-7.7); Hematocrit 28 % (35-47); Hemoglobin 9.3 g/dL (12.0-16.0); Mean Corpuscular HGB Conc 33 g/dL (31-36); Mean Corpuscular Hemoglobin 30 pg (27-31); Mean Corpuscular Volume 90 fL (80-97); Mean Platelet Volume 7.6 fL (7.4-10.4); Platelet Count 96 10^3/uL (150-450); Red Blood Count 3.09 10^6 /uL (3.70-4.87); Red Cell Distribution Width 14 % (10-15); White Blood Count 9.7 10^3/uL (3.5-10.8)
[2022-07-14 06:08] LABS: Calcium 7.3 mg/dL (8.6-10.3); Creatinine, Serum 0.63 mg/dL (0.51-0.95); Potassium 4.4 mmol/L (3.5-5.0); eGFR CKD-EPI 90.2 (>60)
[2022-07-14] MEDS: NS 0.9% 1000 ml BAG 1,000 ML IV SCH ×3 (08:48→21:39)
[2022-07-14] MEDS: Enoxaparin 40 MG/0.4 ML SYR SUBCUT SCH (12:13)
[2022-07-14] MEDS ORDERED: NS 0.9% 500 ml BAG 500 ML IV ONE (16:09)
[2022-07-15] MEDS: NS 0.9% 1000 ml BAG 1,000 ML IV SCH (04:10)
[2022-07-15] MEDS: Morphine 2 MG/ML SYRINGE IV PRN ×2 (05:01→14:03)
[2022-07-15 05:38] LABS: ABS Basophils 0.1 10^3/ul (0-0.2); ABS Eosinophils 0.4 10^3/ul (0-0.6); ABS Lymphocytes 2.4 10^3/ul (1.0-4.8); ABS Monocytes 0.7 10^3/ul (0-0.8); ABS Neutrophils 5.5 10^3/ul (1.5-7.7); Eosinophil % 4.3 %; Hematocrit 25 % (35-47); Hemoglobin 8.1 g/dL (12.0-16.0); Lymphocyte % 26.1 %; Mean Corpuscular HGB Conc 33 g/dL (31-36); Mean Corpuscular Hemoglobin 30 pg (27-31); Mean Corpuscular Volume 91 fL (80-97); Mean Platelet Volume 7.5 fL (7.4-10.4); Platelet Count 96 10^3/uL (150-450); Red Blood Count 2.74 10^6 /uL (3.70-4.87); Red Cell Distribution Width 14 % (10-15); White Blood Count 9.1 10^3/uL (3.5-10.8)
[2022-07-15 05:58] LABS: Calcium 7.4 mg/dL (8.6-10.3); Creatinine, Serum 0.54 mg/dL (0.51-0.95); Potassium 3.7 mmol/L (3.5-5.0); eGFR CKD-EPI 93.6 (>60)
[2022-07-15] MEDS ORDERED: NS 0.9% 1000 ml BAG 1,000 ML IV SCH (07:17)
[2022-07-15] MEDS: Polyethylene Glycol 3350 17 GM PACKET PO PRN (07:42)
[2022-07-15] MEDS: Senna TAB 8.6 mg TAB PO PRN (07:42)
[2022-07-15] MEDS: Enoxaparin 40 MG/0.4 ML SYR SUBCUT SCH (12:30)
[2022-07-15] MEDS ORDERED: Lactated Ringers 1000 ml BAG 1,000 ML IV ONE (16:34)
[2022-07-15] MEDS: Lactated Ringers 1000 ml BAG 1,000 ML IV SCH (17:07)
[2022-07-16] MEDS: Lactated Ringers 1000 ml BAG 1,000 ML IV SCH (01:50)
[2022-07-16 05:54] LABS: ABS Eosinophils 0.4 10^3/ul (0-0.6); ABS Lymphocytes 1.5 10^3/ul (1.0-4.8); ABS Monocytes 0.6 10^3/ul (0-0.8); ABS Neutrophils 4.8 10^3/ul (1.5-7.7); Eosinophil % 5.1 %; Hematocrit 23 % (35-47); Hemoglobin 7.7 g/dL (12.0-16.0); Lymphocyte % 20.2 %; Mean Corpuscular HGB Conc 33 g/dL (31-36); Mean Corpuscular Hemoglobin 30 pg (27-31); Mean Corpuscular Volume 91 fL (80-97); Mean Platelet Volume 7.5 fL (7.4-10.4); Platelet Count 110 10^3/uL (150-450); Red Blood Count 2.57 10^6 /uL (3.70-4.87); Red Cell Distribution Width 14 % (10-15); White Blood Count 7.3 10^3/uL (3.5-10.8)
[2022-07-16 06:16] LABS: Calcium 7.4 mg/dL (8.6-10.3); Creatinine, Serum 0.52 mg/dL (0.51-0.95); Potassium 4.1 mmol/L (3.5-5.0); eGFR CKD-EPI 94.5 (>60)
[2022-07-16] MEDS: Senna TAB 8.6 mg TAB PO PRN (09:33)
[2022-07-16] MEDS: Polyethylene Glycol 3350 17 GM PACKET PO PRN (09:33)
[2022-07-16 12:03] LABS: Ferritin 175.8 ng/mL (11-307)
[2022-07-16] MEDS ORDERED: Iron Sucrose 200 MG in NS 0.9% 100 ml BAG 100 ML IVPB ONE (13:36)
[2022-07-16] MEDS: Enoxaparin 40 MG/0.4 ML SYR SUBCUT SCH (14:07)
[2022-07-17 05:48] LABS: ABS Eosinophils 0.2 10^3/ul (0-0.6); ABS Lymphocytes 1.1 10^3/ul (1.0-4.8); ABS Monocytes 0.6 10^3/ul (0-0.8); Eosinophil % 2.1 %; Hematocrit 25 % (35-47); Hemoglobin 8.2 g/dL (12.0-16.0); Lymphocyte % 14.3 %; Mean Corpuscular HGB Conc 33 g/dL (31-36); Mean Corpuscular Hemoglobin 30 pg (27-31); Mean Corpuscular Volume 91 fL (80-97); Mean Platelet Volume 7.3 fL (7.4-10.4); Nucleated Red Blood Cells % 0.1; Platelet Count 148 10^3/uL (150-450); Red Cell Distribution Width 14 % (10-15); White Blood Count 7.9 10^3/uL (3.5-10.8)
[2022-07-17] MEDS: Enoxaparin 40 MG/0.4 ML SYR SUBCUT SCH (12:48)
[2022-07-17] MEDS ORDERED: Saline NASAL SPRAY 0.65% BTL BOTH NARES PRN (14:37)
[2022-07-18 06:15] LABS: ABS Eosinophils 0.3 10^3/ul (0-0.6); ABS Lymphocytes 2.4 10^3/ul (1.0-4.8); ABS Monocytes 0.8 10^3/ul (0-0.8); ABS Neutrophils 3.7 10^3/ul (1.5-7.7); Eosinophil % 4.6 %; Hematocrit 21 % (35-47); Hemoglobin 7.3 g/dL (12.0-16.0); Lymphocyte % 32.9 %; Mean Corpuscular HGB Conc 34 g/dL (31-36); Mean Corpuscular Hemoglobin 31 pg (27-31); Mean Corpuscular Volume 91 fL (80-97); Mean Platelet Volume 7.2 fL (7.4-10.4); Nucleated Red Blood Cells % 0.1; Platelet Count 158 10^3/uL (150-450); Red Blood Count 2.34 10^6 /uL (3.70-4.87); Red Cell Distribution Width 15 % (10-15); White Blood Count 7.2 10^3/uL (3.5-10.8)
[2022-07-18] MEDS: Enoxaparin 40 MG/0.4 ML SYR SUBCUT SCH (13:56)
[2022-07-19 06:08] LABS: ABS Eosinophils 0.3 10^3/ul (0-0.6); ABS Lymphocytes 2.1 10^3/ul (1.0-4.8); ABS Monocytes 0.8 10^3/ul (0-0.8); ABS Neutrophils 3.8 10^3/ul (1.5-7.7); Eosinophil % 4.7 %; Hematocrit 22 % (35-47); Hemoglobin 7.5 g/dL (12.0-16.0); Mean Corpuscular HGB Conc 34 g/dL (31-36); Mean Corpuscular Hemoglobin 31 pg (27-31); Mean Corpuscular Volume 92 fL (80-97); Mean Platelet Volume 7.1 fL (7.4-10.4); Nucleated Red Blood Cells % 0.2; Platelet Count 180 10^3/uL (150-450); Red Blood Count 2.43 10^6 /uL (3.70-4.87); Red Cell Distribution Width 15 % (10-15); White Blood Count 7.1 10^3/uL (3.5-10.8)
[2022-07-19 11:05] VITALS: BP 121/71
[2022-07-19] MEDS: Enoxaparin 40 MG/0.4 ML SYR SUBCUT SCH (12:33)
== END 2022-07-19 12:45 | DRG 481 ==
LOC: ED 16:14 → SUATTDRO 18:21 → EDHOLD 18:21 → SSU 19:24
PROVIDERS: ADMIT Internal Medicine; ATTEND Hospitalist

== ENCOUNTER 2022-11-25 00:43 | Observation (INO) ==
[2022-11-25 07:01] LABS: ABS Basophils 0.1 10^3/uL (0.0-0.1); ABS Eosinophils 0.1 10^3/uL (0.0-0.5); ABS Lymphocytes 2.6 10^3/uL (1.0-4.8); ABS Monocytes 0.8 10^3/uL (0.0-0.9); Eosinophil % 0.8 %; Hematocrit 37.6 % (35-45); Hemoglobin 12.6 g/dL (11.5-14.3); Lymphocyte % 22.6 %; Mean Corpuscular Hemoglobin 30.1 pg (27-33); Mean Corpuscular Hgb Conc 33.4 g/dL (31-36); Mean Platelet Volume 7.4 fL (7.5-11.2); Platelet Count 179 10^3/uL (150-450); Red Blood Count 4.18 10^6/uL (3.63-4.92); Red Cell Distribution Width 14.7 % (12-17); White Blood Count 11.6 10^3/uL (3.8-11.8)
[2022-11-25 07:03] LABS: Urine Appearance Cloudy; Urine Bilirubin Negative (Negative); Urine Blood Negative (Negative); Urine Color Yellow; Urine Glucose Negative (Negative); Urine Ketones Negative (Negative); Urine Nitrite Negative (Negative); Urine Protein Negative (Negative); Urine Specific Gravity 1.014 (1.002-1.030); Urine Urobilinogen Negative (Negative)
[2022-11-25 07:18] LABS: Albumin 3.8 g/dL (3.2-5.2); Albumin/Globulin Ratio 1.5 (1-3); Creatinine, Serum 0.68 mg/dL (0.51-0.95); Globulin 2.5 g/dL (2-4); Potassium 3.9 mmol/L (3.5-5.0); Total Bilirubin 0.8 mg/dL (0.2-1.0); Total Protein 6.3 g/dL (6.4-8.9); eGFR CKD-EPI 88.5 (>60)
[2022-11-25] MEDS ORDERED: Dextrose 50% Syringe 50 ml 25 GM/50 ML SYRINGE IV PUSH PRN (12:15)
[2022-11-25 16:48] LABS: Hematocrit 36.3 % (35-45); Hemoglobin 12.2 g/dL (11.5-14.3)
[2022-11-26 06:12] LABS: Hematocrit 34.5 % (35-45); Hemoglobin 11.6 g/dL (11.5-14.3); Mean Corpuscular Hemoglobin 30.1 pg (27-33); Mean Corpuscular Hgb Conc 33.6 g/dL (31-36); Mean Corpuscular Volume 89.6 fL (80-97); Mean Platelet Volume 7.4 fL (7.5-11.2); Platelet Count 165 10^3/uL (150-450); Red Blood Count 3.85 10^6/uL (3.63-4.92); Red Cell Distribution Width 14.4 % (12-17)
[2022-11-26 06:31] LABS: Calcium 8.7 mg/dL (8.6-10.3); Creatinine, Serum 0.59 mg/dL (0.51-0.95); eGFR CKD-EPI 91.6 (>60)
[2022-11-26] MEDS: Lidocaine PATCH 5% PATCH TRANSDERM SCH (15:33)
[2022-11-27] MEDS: Lidocaine PATCH 5% PATCH TRANSDERM SCH (08:32)
[2022-11-27 10:11] VITALS: BP 109/73
== END 2022-11-27 14:15 | disposition home or self-care (01) ==
LOC: EDHOLD 00:43 → ED 00:43 → SUATTDRO 06:47 → EDHOLD 11:38 → SSU 12:48
PROVIDERS: ADMIT Hospitalist; ATTEND Internal Medicine

== ENCOUNTER 2024-01-12 21:27 | Inpatient (IN) ==
[2024-01-12 21:49] LABS: ABS Basophils 0.2 10^3/uL (0.0-0.1); ABS Lymphocytes 0.7 10^3/uL (1.0-4.8); ABS Monocytes 1.1 10^3/uL (0.0-0.9); ABS Neutrophils 17.1 10^3/uL (1.5-7.6); Hematocrit 42.8 % (35-45); Hemoglobin 14.2 g/dL (11.5-14.3); Lymphocyte % 3.7 %; Mean Corpuscular Hgb Conc 33.1 g/dL (31-36); Mean Corpuscular Volume 90.6 fL (80-97); Mean Platelet Volume 7.2 fL (7.5-11.2); Platelet Count 224 10^3/uL (150-450); Red Blood Count 4.72 10^6/uL (3.63-4.92); Red Cell Distribution Width 14.6 % (12-17); White Blood Count 19.1 10^3/uL (3.8-11.8)
[2024-01-12] MEDS: Lactated Ringers 1000 ml BAG 1,000 ML IV ONE (21:54)
[2024-01-12] MEDS: Iodixanol (CONTRAST) 320 MG/ML 100 ML SDV IV ONE (21:57)
[2024-01-12] MEDS: Acetaminophen IV 1 GM/100ML 1,000 MG/100 ML BAG IV ONE (22:19)
[2024-01-12 22:48] LABS: Albumin 3.5 g/dL (3.2-5.2); Albumin/Globulin Ratio 1.3 (1-3); C Reactive Protein 12.99 mg/L (<8.01); Calcium 8.5 mg/dL (8.6-10.3); Creatinine, Serum 0.73 mg/dL (0.51-0.95); Globulin 2.7 g/dL (2-4); Potassium 4.6 mmol/L (3.5-5.0); Total Bilirubin 0.8 mg/dL (0.2-1.0); Total Protein 6.2 g/dL (6.4-8.9); eGFR CKD-EPI 83.1 (>60)
[2024-01-12] MEDS ORDERED: Atropine 1% (ORAL/SL) 15 ML BTL SL PRN (23:09)
[2024-01-12] MEDS ORDERED: Lorazepam PYXIS KEY PRN (23:15)
[2024-01-12] MEDS: LORazepam 2 mg VIAL 1 ml IV PUSH PRN (23:29)
[2024-01-12] MEDS: Morphine 2 MG/ML SYRINGE IV PRN (23:29)
[2024-01-13] MEDS: Scopolamine 1 mg/72hr PATCH TRANSDERM SCH (02:19)
[2024-01-13 04:57] VITALS: BP 133/75
[2024-01-13] MEDS ORDERED: Ondansetron ODT 4 mg TAB 4 MG TAB SL PRN (09:37)
[2024-01-13] MEDS: Morphine ORAL CONCENTRATE 5 MG/0.25 ML ORAL.SYRIN SL PRN (12:43)
[2024-01-14] MEDS ORDERED: Morphine ORAL CONCENTRATE 5 MG/0.25 ML ORAL.SYRIN SL PRN (09:16)
[2024-01-14] MEDS: Morphine ORAL CONCENTRATE 5 MG/0.25 ML ORAL.SYRIN SL PRN (11:40)
[2024-01-14] MEDS ORDERED: LORazepam 2 mg VIAL 1 ml IV PUSH PRN (11:53)
[2024-01-14] MEDS: Morphine 2 MG/ML SYRINGE IV PRN (13:17)
== END 2024-01-14 17:00 | disposition expired | DRG 951 ==
LOC: EDHOLD 21:27 → ED 21:27 → SUATTDRO 23:13 → MED 01-13 04:19
PROVIDERS: ADMIT Hospitalist; ATTEND Internal Medicine